=== PATIENT | female | born 1975 | race Caucasian/White ===

== ENCOUNTER 2017-02-06 05:16 | Emergency (ER) | payer OTHER ==
[2017-02-06 05:22] VITALS: RESP 18; TEMP 97
--- NOTE | 2017-02-06 05:43 | ED ---
Abdominal Pain HPI - General Chief Complaint: Abdominal Pain Stated Complaint: Female Source: patient, EMS, RN notes reviewed Mode of arrival: EMS Limitations: no limitations - History of Present Illness Initial Comments: This patient is a 41-year-old woman who presents to be evaluated for left lower quadrant pain. The patient states that the pain had started going on 3 days ago now. She indicates the left lower quadrant. She states the pain feels "like someone is pressing down and squeezing and there." She states the pain is constant and denies any worsening or relieving factors. There have been no associated symptoms. The patient states that she went to be seen at [facility], they performed a number of tests and transferred her here to see about having a gynecology consult for an ovarian cyst. The patient further relates that she had a partial hysterectomy in about the year 2011, by her previous final assembler who is in [facility]. MD Complaint: abdominal pain Onset/Timin -: days(s) Location: LLQ Radiation: none Migration to: no migration Severity: moderate Quality: other ("Like someone's pressing down in there") Consistency: constant Improves With: nothing Worsens With: nothing Associated Symptoms: denies other symptoms - Related Data Home Medications Medication Instructions Recorded Confirmed ALPRAZolam [Xanax] 1 mg PO BID 08/21/16 08/29/16 Dexamethasone 0.5 mg PO BID 08/21/16 08/29/16 azaTHIOprine [Imuran] 75 mg PO BID 08/21/16 08/29/16 Previous Rx's Medication Instructions Recorded Albuterol Inhaler [Ventolin Hfa 1 - 2 puff INHALATION Q6HR PRN #1 08/29/16 Inhaler] inhaler Levofloxacin [Levaquin] 750 mg PO DAILY #4 tab 08/29/16 Promethazine/Dextromethorphan 5 ml PO TID #60 ml 08/29/16 [Phenergan DM Syrup] predniSONE 50 mg PO DAILY #5 tab 08/29/16 Hydrocodone/Acetaminophen [[place] 1 each PO Q6HR PRN #20 tab 02/06/17 5-325] Allergies Allergy/AdvReac Type Severity Reaction Status Date / Time amoxicillin Allergy Rash/Hives Verified 02/06/17 05:23 hydromorphone [From Dilaudid] Allergy Unknown Verified 02/06/17 05:23 codeine AdvReac Vomiting Verified 02/06/17 05:23 lisinopril AdvReac Unknown Verified 02/06/17 05:23 metronidazole [From Flagyl] AdvReac Nausea & Verified 02/06/17 05:23 Vomiting paper tape Allergy Unknown Uncoded 02/06/17 05:23 Review of Systems ROS Statement: Those systems with pertinent positive or pertinent negative responses have been documented in the HPI. ROS Other: All systems not noted in ROS Statement are negative. Constitutional: Denies: fever, chills Respiratory: Denies: cough, dyspnea Cardiovascular: Denies: chest pain, palpitations, edema Gastrointestinal: Reports: as per HPI, abdominal pain. Denies: nausea, vomiting , diarrhea, constipation Genitourinary: Denies: dysuria, hematuria Musculoskeletal: Denies: back pain Skin: Denies: rash Neurological: Denies: headache Past Medical History Past Medical History: Diabetes Mellitus, GERD/Reflux, Hyperlipidemia, Hypertension Additional Past Medical History / Comment(s): autoimmune hepatitis, LUPUS, UTI History of Any Multi-Drug Resistant Organisms: None Reported Past Surgical History: Ablation, Cholecystectomy, Hysterectomy, Tubal Ligation Additional Past Surgical History / Comment(s): Cholecystectomy 2013, partial hysterectomy 2012, tubal ligation and NovaSure ablation in 2011 Past Anesthesia/Blood Transfusion Reactions: No Reported Reaction Past Psychological History: Anxiety, Depression Smoking Status: Current every day smoker Past Alcohol Use History: None Reported Past Drug Use History: None Reported - Past Family History Father Family Medical History: Hypertension (Father at age 52 from intracranial hemorrhage and he had a history of hypertension.) Mother Family Medical History: Diabetes Mellitus (Mom is 59-year-old has history of diabetes mellitus type 2) Brother(s) Family Medical History: No Reported History (Patient has one brother no major medical problems.) Sister(s) Family Medical History: Cancer (Patient had 2 sisters one from stomach cancer.) Son(s) Family Medical History: No Reported History (Patient has 3 sons no major medical problems) Daughter(s) Family Medical History: No Reported History (Patient has 2 daughters no major medical problems) General Exam Limitations: no limitations General appearance: alert, in no apparent distress, obese Head exam: Present: atraumatic, normocephalic Eye exam: Present: normal appearance. Absent: scleral icterus, conjunctival injection Respiratory exam: Present: normal lung sounds bilaterally. Absent: respiratory distress, wheezes, rales, rhonchi, stridor Cardiovascular Exam: Present: regular rate, normal rhythm, normal heart sounds. Absent: systolic murmur, diastolic murmur, rubs, gallop GI/Abdominal exam: Present: soft, tenderness (Left lower quadrant), normal bowel sounds. Absent: distended, guarding, rebound, mass, pulsatile mass, hernia Back exam: Present: normal inspection. Absent: CVA tenderness (R), CVA tenderness (L) Neurological exam: Present: alert Skin exam: Present: warm, dry, intact, normal color. Absent: rash Course Vital Signs 02/06/17 05:19 Temperature 97.0 F L Pulse Rate 75 Respiratory 18 Rate Blood Pressure 186/98 O2 Sat by Pulse 100 Oximetry Medical Decision Making - Medical Decision Making Review of the patient's transfer paperwork reveals that she has had transvaginal ultrasound revealing complex cyst of the left ovary measuring 3.6 x 4.4 x 4.5 cm with good Doppler flow. Computed tomography scan report reveals the 5.2 cm left adnexal cyst, no other findings Disposition Clinical Impression: Ovarian cyst Disposition: HOME SELF-CARE Condition: Fair Instructions: Ovarian Cyst (ED) Prescriptions: Hydrocodone/Acetaminophen [[place] 5-325] 1 each PO Q6HR PRN #20 tab PRN Reason: Pain Referrals: Rolando Hicks MD [Primary Care Provider] - 1-2 days Rosalee Davis DO [Doctor of Osteopathic Medicine] - 1-2 days
[2017-02-06] MEDS ORDERED: MORPHINE SULFATE 4 MG/ML SYRINGE IV STA (06:51)
[2017-02-06 07:11] VITALS: BP 162/54; PULSE 88
== END 2017-02-06 07:09 | disposition home or self-care (01) ==
LOC: EC 05:16
DX: N83.202 Unspecified ovarian cyst, left side (principal); N83.8 Other noninflammatory disorders of ovary, fallopian tube and broad ligament; E66.9 Obesity, unspecified; F41.9 Anxiety disorder, unspecified; F32.9 Major depressive disorder, single episode, unspecified; L93.2 Other local lupus erythematosus; K75.4 Autoimmune hepatitis; F17.200 Nicotine dependence, unspecified, uncomplicated; Z79.899 Other long term (current) drug therapy; Z88.0 Allergy status to penicillin; Z88.1 Allergy status to other antibiotic agents; Z88.5 Allergy status to narcotic agent; Z88.8 Allergy status to other drugs, medicaments and biological substances; Z91.09 Other allergy status, other than to drugs and biological substances; Z90.710 Acquired absence of both cervix and uterus; Z90.49 Acquired absence of other specified parts of digestive tract; Z80.0 Family history of malignant neoplasm of digestive organs; Z68.39 Body mass index [BMI] 39.0-39.9, adult
CPT/HCPCS: 99284; 96374; J2270

== ENCOUNTER 2017-02-07 20:46 | Emergency (ER) | payer OTHER ==
[2017-02-07] MEDS ORDERED: SODIUM CHLORIDE 0.9% 1,000 ML IV STA (21:30)
[2017-02-07] MEDS ORDERED: ONDANSETRON 4 MG/2 ML VIAL IVP STA (21:30)
[2017-02-07] MEDS ORDERED: MORPHINE SULFATE 4 MG/ML SYRINGE IVP STA (21:31)
[2017-02-07 22:39] LABS: Amorphous Sediment,Urine Few /hpf; Appearance,Urine Turbid (Clear); Bilirubin,Urine Negative (Negative); Glucose,Urine (UA) Negative (Negative); Ketones,Urine Negative (Negative); Leukocyte Esterase,Urine Trace (Negative); Mucus,Urine Rare /hpf; Nitrite,Urine Negative (Negative); PH, Urine 7.5 (5.0-8.0); Particle Count 10034; Protein,Urine Negative (Negative); RBC,Urine 1 /hpf (0-5); Specific Gravity,Urine 1.006 (1.001-1.035); Squamous Epithelial Cell,Urine 12 /hpf (0-4); UA Billing (MACRO vs. MICRO) MICRO; Urobilinogen,Urine <2.0 mg/dL (<2.0); WBC,Urine 6 /hpf (0-5)
[2017-02-07 22:40] LABS: ALT 25 U/L (9-52); AST 25 U/L (14-36); Alkaline Phosphatase 82 U/L (38-126); Anion Gap 8 mmol/L; Blood Urea Nitrogen 8 mg/dL (7-17); Calcium 9.2 mg/dL (8.4-10.2); Carbon Dioxide 27 mmol/L (22-30); Chloride 107 mmol/L (98-107); Glucose 80 mg/dL (74-99); Non-African American GFR(MDRD) >60 (>60 ml/min/1.73 sqM); Potassium 4.2 mmol/L (3.5-5.1); Sodium 142 mmol/L (137-145); Total Bilirubin 0.5 mg/dL (0.2-1.3); Total Protein 7.4 g/dL (6.3-8.2)
[2017-02-07 22:59] LABS: Basophils # (A) 0.1 k/uL (0-0.2); Basophils % (A) 1 %; CH 29.2; CHCM 34.7; Eosinophils # (A) 0.3 k/uL (0-0.7); Eosinophils % (A) 3 %; HCT 43.2 % (34.0-46.0); HDW 2.58; Luc # (Auto) 0.21; Luc % (Auto) 2; Lymphocytes # (A) 2.7 k/uL (1.0-4.8); Lymphocytes % (A) 27 %; MCH 29.3 pg (25.0-35.0); MCHC 34.7 g/dL (31.0-37.0); MCV 84.5 fL (80.0-100.0); Mean Platelet Volume 8.1; Monocytes # (A) 0.7 k/uL (0-1.0); Monocytes % (A) 7 %; Neutrophils # (A) 6.1 k/uL (1.3-7.7); Neutrophils % (A) 60 %; RDW 13.9 % (11.5-15.5); WBC 10.1 k/uL (3.8-10.6)
--- NOTE | 2017-02-07 23:29 | US ---
EXAM: US Pelvis, Transvaginal CLINICAL HISTORY: Reason: Pain TECHNIQUE: Real-time transvaginal pelvic ultrasound (complete) with image documentation. Transvaginal imaging was used for better evaluation of the endometrium and adnexa. COMPARISON: 02/06/2017 0340 FINDINGS: Uterus/cervix: The uterus is absent. Right ovary: The right ovary measures 2.3 x 1.9 x 2.3 cm. There is normal vascular flow in the right ovary. Left ovary: Left ovary measures 4.0 x 3.9 x 3.5 cm. Complex avascular 3.4 cm left ovarian cystic structure with low-level homogeneous internal echoes. There is normal vascular flow in the left ovary. Free fluid: No significant pelvic free fluid. Bladder: Not visualized. IMPRESSION: No sonographic findings to suggest ovarian torsion. A 3.4 cm complex avascular left adnexal cyst has sonographic features suggestive of an endometrioma. Recommend initial ultrasound follow-up in 6-12 weeks, if prior imaging is unavailable for comparison.
--- NOTE | 2017-02-07 23:45 | ED ---
Abdominal Pain HPI - General Chief Complaint: Abdominal Pain Stated Complaint: Revisit pelvic pain Time Seen by Provider: 02/07/17 21:07 Source: patient Mode of arrival: ambulatory Limitations: no limitations - History of Present Illness Initial Comments: The patient is a 41-year-old female who presents to the ED with a chief complaint of abdominal pain. Patient states that the pain is located in the lower abdomen. She also states that there is pain in the left lower quadrant. Patient states the pain is pressure-like in nature. She states that she's been having difficulty with urination. She was evaluated in the ED just yesterday for a similar complaint. The patient had an ultrasound as well as a CT abdomen and pelvis performed at an outside hospital. These images demonstrated evidence of a large left-sided ovarian cyst. However, there was excellent bloodflow noted on ultrasound. Patient's pain was controlled yesterday and she is discharged home to follow up with [employer]. The patient states that her pain is return should she arrived home. The patient denies any urinary incontinence or frequency. She states that she has been having a large amount of constipation. Patient denies any fevers or chills. - Related Data Home Medications Medication Instructions Recorded Confirmed ALPRAZolam [Xanax] 1 mg PO TID 08/21/16 02/07/17 Dexamethasone 0.5 mg PO BID 08/21/16 02/07/17 azaTHIOprine [Imuran] 75 mg PO BID 08/21/16 02/07/17 Hydrocodone/Acetaminophen [[place] 1 tab PO Q6HR PRN 02/07/17 02/07/17 5-325] Insulin Aspart [NovoLOG] See Protocol SQ AC-TID 02/07/17 02/07/17 Previous Rx's Medication Instructions Recorded Docusate [Colace] 100 mg PO BID #28 capsule 02/07/17 Magnesium Citrate 296 ml PO ONCE #1 ml 02/07/17 Polyethylene Glycol 3350 [Miralax] 17 gm PO DAILY #255 gm 02/07/17 Allergies Allergy/AdvReac Type Severity Reaction Status Date / Time amoxicillin Allergy Rash/Hives Verified 02/07/17 21:08 hydromorphone [From Dilaudid] Allergy Unknown Verified 02/07/17 21:08 codeine AdvReac Vomiting Verified 02/07/17 21:08 lisinopril AdvReac Unknown Verified 02/07/17 21:08 metronidazole [From Flagyl] AdvReac Nausea & Verified 02/07/17 21:08 Vomiting paper tape Allergy Unknown Uncoded 02/07/17 21:01 Review of Systems ROS Statement: Those systems with pertinent positive or pertinent negative responses have been documented in the HPI. ROS Other: All systems not noted in ROS Statement are negative. Constitutional: Denies: fever, chills, weakness Eyes: Denies: vision change ENT: Denies: ear pain, throat pain, dental pain Respiratory: Denies: cough, dyspnea, wheezes, hemoptysis, stridor Cardiovascular: Denies: chest pain Endocrine: Denies: fatigue Gastrointestinal: Reports: abdominal pain (lower abdomen and left adnexal region ), nausea. Denies: vomiting Genitourinary: Reports: other (difficulty with urination). Denies: urgency, dysuria, frequency Musculoskeletal: Denies: back pain Skin: Denies: rash, lesions Neurological: Denies: headache, weakness Psychiatric: Reports: anxiety, depression Past Medical History Past Medical History: Diabetes Mellitus, GERD/Reflux, Hyperlipidemia, Hypertension Additional Past Medical History / Comment(s): autoimmune hepatitis, LUPUS, UTI History of Any Multi-Drug Resistant Organisms: None Reported Past Surgical History: Ablation, Cholecystectomy, Hysterectomy, Tubal Ligation Additional Past Surgical History / Comment(s): Cholecystectomy 2013, partial hysterectomy 2012, tubal ligation and NovaSure ablation in 2011 Past Anesthesia/Blood Transfusion Reactions: No Reported Reaction Past Psychological History: Anxiety, Depression Smoking Status: Current every day smoker Past Alcohol Use History: None Reported Past Drug Use History: None Reported - Past Family History Father Family Medical History: Hypertension (Father at age 52 from intracranial hemorrhage and he had a history of hypertension.) Mother Family Medical History: Diabetes Mellitus (Mom is 59-year-old has history of diabetes mellitus type 2) Brother(s) Family Medical History: No Reported History (Patient has one brother no major medical problems.) Sister(s) Family Medical History: Cancer (Patient had 2 sisters one from stomach cancer.) Son(s) Family Medical History: No Reported History (Patient has 3 sons no major medical problems) Daughter(s) Family Medical History: No Reported History (Patient has 2 daughters no major medical problems) General Exam Limitations: no limitations General appearance: alert, in no apparent distress Head exam: Present: atraumatic, normocephalic Eye exam: Present: normal appearance, PERRL Pupils: Present: normal accommodation ENT exam: Present: normal exam, mucous membranes dry Neck exam: Present: normal inspection, tenderness Respiratory exam: Present: normal lung sounds bilaterally. Absent: respiratory distress, wheezes, rales, rhonchi, stridor, chest wall tenderness Cardiovascular Exam: Present: regular rate, normal rhythm. Absent: bradycardia , tachycardia, irregular rhythm GI/Abdominal exam: Present: soft, tenderness (mild tenderness throughout the lower abdomen). Absent: distended, guarding, rebound, rigid Extremities exam: Present: normal inspection, full ROM Back exam: Present: normal inspection, full ROM Neurological exam: Present: alert, oriented X3 Psychiatric exam: Present: normal affect, normal mood Skin exam: Present: warm, dry, intact Course Vital Signs 02/07/17 02/07/17 20:59 23:57 Temperature 98.6 F 97.9 F Pulse Rate 94 86 Respiratory 20 18 Rate Blood Pressure 185/111 154/97 O2 Sat by Pulse 99 100 Oximetry Medical Decision Making - Medical Decision Making The patient is a 41-year-old female who presents to the ED with a chief complaint of abdominal pain. Patient states the pain is located in the suprapubic region and left lower quadrant. Patient had evidence of an ovarian cyst yesterday on ultrasound as well as CAT scan. No evidence of any disruption of blood flow. Patient does have a history of partial hysterectomy. 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 States nausea but denies any vomiting. We'll recheck ultrasound of the pelvis to confirm adequate blood flow to bilateral ovaries. Check a bladder scan to examine postvoid residual. Patient denies any vaginal bleeding or discharge. Provide with narcotics for pain control. 11:15 PM Updated patient of overall findings including evidence of ovarian cyst on the left side. No free fluid in the pelvis. It seems that the patient's ovarian cyst is decreased in size since ultrasound yesterday. Patient has a questionable UA given number of squamous cells present. Will await culture. Hold on antibiotics at this point in time. The patient's bladder scan demonstrated 80 mL as PVR. Reviewing patient's CAT scan from yesterday, it appears that the patient is quite constipated. Counseled the patient that I believe that she would benefit from a bottle of Magnesium Citrate for home. I will discharge her home with Colace as well as MiraLAX to use on a daily basis. Answered all the patient's questions to her satisfaction. Her pain is well controlled here in the ED. She will be discharged home at this point in time. Encouraged her to return to the ED should she have worsening symptoms home. - Lab Data Result diagrams: 02/07/17 22:10 02/07/17 22:10 Lab Results 02/07/17 02/07/17 02/07/17 Range/Units 22:10 22:10 22:10 WBC 10.1 (3.8-10.6) k/uL RBC 5.10 (3.80-5.40) m/uL Hgb 15.0 (11.4-16.0) gm/dL Hct 43.2 (34.0-46.0) % MCV 84.5 (80.0-100.0) fL MCH 29.3 (25.0-35.0) pg MCHC 34.7 (31.0-37.0) g/dL RDW 13.9 (11.5-15.5) % Plt Count 284 (150-450) k/uL Neutrophils % 60 % Lymphocytes % 27 % Monocytes % 7 % Eosinophils % 3 % Basophils % 1 % Neutrophils # 6.1 (1.3-7.7) k/uL Lymphocytes # 2.7 (1.0-4.8) k/uL Monocytes # 0.7 (0-1.0) k/uL Eosinophils # 0.3 (0-0.7) k/uL Basophils # 0.1 (0-0.2) k/uL Sodium 142 (137-145) mmol/L Potassium 4.2 (3.5-5.1) mmol/L Chloride 107 (98-107) mmol/L Carbon Dioxide 27 (22-30) mmol/L Anion Gap 8 mmol/L BUN 8 (7-17) mg/dL Creatinine 0.54 (0.52-1.04) mg/dL Est GFR (MDRD) Af Amer >60 (>60 ml/min/1.73 sqM) Est GFR (MDRD) Non-Af >60 (>60 ml/min/1.73 sqM) Glucose 80 (74-99) mg/dL Plasma Lactic Acid [place] (0.7-2.0) mmol/L Calcium 9.2 (8.4-10.2) mg/dL Magnesium 2.0 (1.6-2.3) mg/dL Total Bilirubin 0.5 (0.2-1.3) mg/dL AST 25 (14-36) U/L ALT 25 (9-52) U/L Alkaline Phosphatase 82 (38-126) U/L Total Protein 7.4 (6.3-8.2) g/dL Albumin 4.2 (3.5-5.0) g/dL Urine Color Light Yellow Urine Appearance Turbid H (Clear) Urine pH 7.5 (5.0-8.0) Ur Specific [place] 1.006 (1.001-1.035) Urine Protein Negative (Negative) Urine Glucose (UA) Negative (Negative) Urine Ketones Negative (Negative) Urine Blood Negative (Negative) Urine Nitrite Negative (Negative) Urine Bilirubin Negative (Negative) Urine Urobilinogen <2.0 (<2.0) mg/dL Ur Leukocyte Esterase Trace H (Negative) Urine RBC 1 (0-5) /hpf Urine WBC 6 H (0-5) /hpf Ur Squamous Epith Cells 12 H (0-4) /hpf Amorphous Sediment Few H (None) /hpf Hyaline Casts 9 H (0-2) /lpf Urine Mucus Rare H (None) /hpf // Range/Units 22:10 WBC (3.8-10.6) k/uL RBC (3.80-5.40) m/uL Hgb (11.4-16.0) gm/dL Hct (34.0-46.0) % MCV (80.0-100.0) fL MCH (25.0-35.0) pg MCHC (31.0-37.0) g/dL RDW (11.5-15.5) % Plt Count (150-450) k/uL Neutrophils % % Lymphocytes % % Monocytes % % Eosinophils % % Basophils % % Neutrophils # (1.3-7.7) k/uL Lymphocytes # (1.0-4.8) k/uL Monocytes # (0-1.0) k/uL Eosinophils # (0-0.7) k/uL Basophils # (0-0.2) k/uL Sodium (137-145) mmol/L Potassium (3.5-5.1) mmol/L Chloride (98-107) mmol/L Carbon Dioxide (22-30) mmol/L Anion Gap mmol/L BUN (7-17) mg/dL Creatinine (0.52-1.04) mg/dL Est GFR (MDRD) Af Amer (>60 ml/min/1.73 sqM) Est GFR (MDRD) Non-Af (>60 ml/min/1.73 sqM) Glucose (74-99) mg/dL Plasma Lactic Acid [place] 1.0 (0.7-2.0) mmol/L Calcium (8.4-10.2) mg/dL Magnesium (1.6-2.3) mg/dL Total Bilirubin (0.2-1.3) mg/dL AST (14-36) U/L ALT (9-52) U/L Alkaline Phosphatase (38-126) U/L Total Protein (6.3-8.2) g/dL Albumin (3.5-5.0) g/dL Urine Color Urine Appearance (Clear) Urine pH (5.0-8.0) Ur Specific [place] (1.001-1.035) Urine Protein (Negative) Urine Glucose (UA) (Negative) Urine Ketones (Negative) Urine Blood (Negative) Urine Nitrite (Negative) Urine Bilirubin (Negative) Urine Urobilinogen (<2.0) mg/dL Ur Leukocyte Esterase (Negative) Urine RBC (0-5) /hpf Urine WBC (0-5) /hpf Ur Squamous Epith Cells (0-4) /hpf Amorphous Sediment (None) /hpf Hyaline Casts (0-2) /lpf Urine Mucus (None) /hpf Disposition Clinical Impression: Suprapubic pain, Constipation, Ovarian cyst, left Disposition: HOME SELF-CARE Condition: Good Instructions: Ovarian Cyst (ED), Constipation (ED), High Fiber Diet (ED) Additional Instructions: Please take the medications prescribed to you for constipation. The bottle of magnesium citrate will help to clear your bowels. I have prescribed a stool softener and MiraLAX. You can continue to take pain medications at home as needed for discomfort. Please follow-up with your Network Lead for your appointment next Tuesday. Please return to the ED should he have worsening symptoms though home, particularly if associated with fever. Prescriptions: Docusate [Colace] 100 mg PO BID #28 capsule Magnesium Citrate 296 ml PO ONCE #1 ml Polyethylene Glycol 3350 [Miralax] 17 gm PO DAILY #255 gm Referrals: Rolando Hicks MD [Primary Care Provider] - 1-2 days Time of Disposition: 23:45
[2017-02-07 23:58] VITALS: BP 154/97; PULSE 86; RESP 18; TEMP 97.9
== END 2017-02-07 23:58 | disposition home or self-care (01) ==
LOC: EC 20:46
DX: K59.00 Constipation, unspecified (principal); N83.202 Unspecified ovarian cyst, left side; R11.0 Nausea; E11.9 Type 2 diabetes mellitus without complications; F32.9 Major depressive disorder, single episode, unspecified; F41.9 Anxiety disorder, unspecified; F17.200 Nicotine dependence, unspecified, uncomplicated; Z79.4 Long term (current) use of insulin; Z79.899 Other long term (current) drug therapy; Z88.0 Allergy status to penicillin; Z88.8 Allergy status to other drugs, medicaments and biological substances; Z91.048 Other nonmedicinal substance allergy status; Z90.49 Acquired absence of other specified parts of digestive tract; Z90.710 Acquired absence of both cervix and uterus; Z98.51 Tubal ligation status
CPT/HCPCS: 51798; 36415; 80053; 83605; 83735; 85025; 81001; 87086; 93975; 76830; 99284; 96374; 96375; 96361; J2270; J2405; 87077; 87186

== ENCOUNTER 2019-01-11 15:52 | Observation (INO) | payer OTHER ==
[2019-01-11] MEDS ORDERED: SODIUM CHLORIDE 0.9% 1,000 ML IV ONE (16:26)
--- NOTE | 2019-01-11 16:32 | ED ---
General Adult HPI - General Chief complaint: Altered Mental Status Stated complaint: Seizure Time Seen by Provider: 01/11/19 16:16 Source: patient, family, RN notes reviewed Mode of arrival: wheelchair Limitations: altered mental status - History of Present Illness Initial comments: Patient is a pleasant 43-year-old female presenting to the emergency department with altered mental status. History provided by the . 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 Patient had 3-4 yesterday lasting between 5 and 10 minutes. Seizure activity was around 9 or 9:30 PM. Patient has had increased stress recently. Stress associated with patient seizures chronically. Patient normally does have confusion and difficulty talking 4 hours afterwards however usually this resolves in the next day. This time symptoms are not improving. Patient is having difficulty talking however is confused as well. - Related Data Home Medications Medication Instructions Recorded Confirmed Aspirin EC [Ecotrin Low Dose] 81 mg PO DAILY 01/11/19 01/11/19 Atenolol [Tenormin] 25 mg PO BID 01/11/19 01/11/19 Famotidine [Pepcid] 40 mg PO BID 01/11/19 01/11/19 LORazepam [Ativan] 0.5 mg PO BID 01/11/19 01/11/19 OXcarbazepine [Oxtellar Xr] 1,200 mg PO DAILY 01/11/19 01/11/19 Pantoprazole Sodium [Protonix] 20 mg PO DAILY 01/11/19 01/11/19 clonazePAM [KlonoPIN] 1.5 mg PO BID 01/11/19 01/11/19 Allergies Allergy/AdvReac Type Severity Reaction Status Date / Time amoxicillin Allergy Rash/Hives Verified 01/11/19 16:56 hydromorphone [From Dilaudid] Allergy Unknown Verified 01/11/19 16:56 codeine AdvReac Vomiting Verified 01/11/19 16:56 lisinopril AdvReac Unknown Verified 01/11/19 16:56 metronidazole [From Flagyl] AdvReac Nausea & Verified 01/11/19 16:56 Vomiting paper tape Allergy Unknown Uncoded 01/11/19 16:00 Review of Systems ROS Statement: Those systems with pertinent positive or pertinent negative responses have been documented in the HPI. ROS Other: All systems not noted in ROS Statement are negative. Limitations: ROS unobtainable due to patients medical condition Past Medical History Past Medical History: Diabetes Mellitus, GERD/Reflux, Hyperlipidemia, Hypertension Additional Past Medical History / Comment(s): autoimmune hepatitis, LUPUS, UTI History of Any Multi-Drug Resistant Organisms: None Reported Past Surgical History: Ablation, Cholecystectomy, Hysterectomy, Tubal Ligation Additional Past Surgical History / Comment(s): Cholecystectomy 2013, partial hysterectomy 2012, tubal ligation and NovaSure ablation in 2011 Past Anesthesia/Blood Transfusion Reactions: No Reported Reaction Past Psychological History: Anxiety, Depression Smoking Status: Current every day smoker Past Alcohol Use History: None Reported Past Drug Use History: None Reported - Past Family History Father Family Medical History: Hypertension (Father at age 52 from intracranial hemorrhage and he had a history of hypertension.) Mother Family Medical History: Diabetes Mellitus (Mom is 59-year-old has history of diabetes mellitus type 2) Brother(s) Family Medical History: No Reported History (Patient has one brother no major medical problems.) Sister(s) Family Medical History: Cancer (Patient had 2 sisters one from stomach cancer.) Son(s) Family Medical History: No Reported History (Patient has 3 sons no major medical problems) Daughter(s) Family Medical History: No Reported History (Patient has 2 daughters no major medical problems) General Exam Limitations: altered mental status General appearance: alert, in no apparent distress, other (Patient is alert. Limited verbal capability. Patient does follow commands but provides limited effort) Head exam: Present: atraumatic, normocephalic Eye exam: Present: normal appearance, PERRL, EOMI. Absent: nystagmus ENT exam: Present: normal oropharynx Neck exam: Present: normal inspection Respiratory exam: Present: normal lung sounds bilaterally Cardiovascular Exam: Present: regular rate, normal rhythm GI/Abdominal exam: Present: soft. Absent: tenderness Extremities exam: Present: normal inspection. Absent: pedal edema, calf tenderness Back exam: Present: normal inspection Neurological exam: Present: alert, altered, CN II-XII intact. Absent: motor sensory deficit Expanded Neurological exam: Present: protecting the airway Cranial nerves: EOM's Intact: Normal, Facial Sensation: Normal Sensory exam: Upper Extremity Light Touch: Normal, Lower Extremity Light Touch: Normal Motor strength exam: RUE: 5, LUE: 5, RLE: 5, LLE: 5 Eye Response: (4) open spontaneously Motor Response: (6) obeys commands Psychiatric exam: Present: normal affect, normal mood Skin exam: Present: normal color Course Vital Signs 01/11/19 01/11/19 15:58 17:42 Temperature 98.2 F Pulse Rate 94 76 Respiratory 20 16 Rate Blood Pressure 156/94 153/98 O2 Sat by Pulse 96 97 Oximetry EKG Findings - EKG Comments: EKG Findings:: Normal sinus rhythm at 73. VA 156. QRS 74. QT 402. QTC 442. Normal axis. Normal QRS. No acute ST change. Medical Decision Making - Medical Decision Making Patient reevaluated and unchanged. Case was discussed in detail with Dr. Ashley, who will admit his patient. - Lab Data Result diagrams: 01/11/19 17:00 01/11/19 17:00 Lab Results 01/11/19 01/11/19 01/11/19 Range/Units 17:00 17:00 17:00 WBC 9.3 (3.8-10.6) k/uL RBC 4.70 (3.80-5.40) m/uL Hgb 13.6 (11.4-16.0) gm/dL Hct 40.0 (34.0-46.0) % MCV 85.1 (80.0-100.0) fL MCH 28.9 (25.0-35.0) pg MCHC 34.0 (31.0-37.0) g/dL RDW 14.2 (11.5-15.5) % Plt Count 324 (150-450) k/uL Neutrophils % 66 % Lymphocytes % 18 % Monocytes % 6 % Eosinophils % 5 % Basophils % 1 % Neutrophils # 6.2 (1.3-7.7) k/uL Lymphocytes # 1.7 (1.0-4.8) k/uL Monocytes # 0.6 (0-1.0) k/uL Eosinophils # 0.5 (0-0.7) k/uL Basophils # 0.1 (0-0.2) k/uL PT (9.0-12.0) sec INR (<1.2) APTT (22.0-30.0) sec Sodium 134 L (137-145) mmol/L Potassium 4.3 (3.5-5.1) mmol/L Chloride 103 (98-107) mmol/L Carbon Dioxide 25 (22-30) mmol/L Anion Gap 6 mmol/L BUN 7 (7-17) mg/dL Creatinine 0.43 L (0.52-1.04) mg/dL Est GFR (CKD-EPI)AfAm >90 (>60 ml/min/1.73 sqM) Est GFR (CKD-EPI)NonAf >90 (>60 ml/min/1.73 sqM) Glucose 116 H (74-99) mg/dL Calcium 9.1 (8.4-10.2) mg/dL Total Bilirubin 0.3 (0.2-1.3) mg/dL AST 17 (14-36) U/L ALT 17 (9-52) U/L Alkaline Phosphatase 71 (38-126) U/L Ammonia 16 (<30) umol/L Creatine Kinase 62 (30-135) U/L Troponin I (0.000-0.034) ng/mL Total Protein 6.8 (6.3-8.2) g/dL Albumin 4.0 (3.5-5.0) g/dL 01/11/19 01/11/19 Range/Units 17:00 17:00 WBC (3.8-10.6) k/uL RBC (3.80-5.40) m/uL Hgb (11.4-16.0) gm/dL Hct (34.0-46.0) % MCV (80.0-100.0) fL MCH (25.0-35.0) pg MCHC (31.0-37.0) g/dL RDW (11.5-15.5) % Plt Count (150-450) k/uL Neutrophils % % Lymphocytes % % Monocytes % % Eosinophils % % Basophils % % Neutrophils # (1.3-7.7) k/uL Lymphocytes # (1.0-4.8) k/uL Monocytes # (0-1.0) k/uL Eosinophils # (0-0.7) k/uL Basophils # (0-0.2) k/uL PT 9.9 (9.0-12.0) sec INR 0.9 (<1.2) APTT 24.2 (22.0-30.0) sec Sodium (137-145) mmol/L Potassium (3.5-5.1) mmol/L Chloride (98-107) mmol/L Carbon Dioxide (22-30) mmol/L Anion Gap mmol/L BUN (7-17) mg/dL Creatinine (0.52-1.04) mg/dL Est GFR (CKD-EPI)AfAm (>60 ml/min/1.73 sqM) Est GFR (CKD-EPI)NonAf (>60 ml/min/1.73 sqM) Glucose (74-99) mg/dL Calcium (8.4-10.2) mg/dL Total Bilirubin (0.2-1.3) mg/dL AST (14-36) U/L ALT (9-52) U/L Alkaline Phosphatase (38-126) U/L Ammonia (<30) umol/L Creatine Kinase (30-135) U/L Troponin I <0.012 (0.000-0.034) ng/mL Total Protein (6.3-8.2) g/dL Albumin (3.5-5.0) g/dL - Radiology Data Radiology results: report reviewed (cT scan the brain reveals no acute process), image reviewed (Chest x-ray shows no acute process) Disposition Clinical Impression: Altered mental status Disposition: ADMITTED IP TO THIS HOSP Is patient prescribed a controlled substance at d/c from ED?: No Referrals: Sandip Ashley MD [Primary Care Provider] - 1-2 days Decision Time: 18:37
[2019-01-11 17:10] LABS: Basophils # (A) 0.1 k/uL (0-0.2); Basophils % (A) 1 %; Eosinophils # (A) 0.5 k/uL (0-0.7); Eosinophils % (A) 5 %; HGB 13.6 gm/dL (11.4-16.0); Lymphocytes # (A) 1.7 k/uL (1.0-4.8); Lymphocytes % (A) 18 %; MCH 28.9 pg (25.0-35.0); MCV 85.1 fL (80.0-100.0); Mean Platelet Volume 7.1; Monocytes # (A) 0.6 k/uL (0-1.0); Monocytes % (A) 6 %; Neutrophils # (A) 6.2 k/uL (1.3-7.7); Neutrophils % (A) 66 %; Platelet Count 324 k/uL (150-450); RDW 14.2 % (11.5-15.5); WBC 9.3 k/uL (3.8-10.6)
[2019-01-11 17:21] LABS: INR 0.9 (<1.2); Partial Thromboplastin Time 24.2 sec (22.0-30.0); Prothrombin Time 9.9 sec (9.0-12.0)
[2019-01-11 17:27] LABS: ALT 17 U/L (9-52); AST 17 U/L (14-36); Alkaline Phosphatase 71 U/L (38-126); Anion Gap 6 mmol/L; Blood Urea Nitrogen 7 mg/dL (7-17); Calcium 9.1 mg/dL (8.4-10.2); Carbon Dioxide 25 mmol/L (22-30); Chloride 103 mmol/L (98-107); Creatine Kinase 62 U/L (30-135); Glucose 116 mg/dL (74-99); Potassium 4.3 mmol/L (3.5-5.1); Sodium 134 mmol/L (137-145); Total Bilirubin 0.3 mg/dL (0.2-1.3); Total Protein 6.8 g/dL (6.3-8.2)
--- NOTE | 2019-01-11 17:47 | CT ---
EXAMINATION TYPE: CT brain wo con DATE OF EXAM: 01/11/2019 COMPARISON: None HISTORY: SEIZURES CT DLP: 1095.4 mGycm. Automated Exposure Control for Dose Reduction was Utilized. TECHNIQUE: CT scan of the head is performed without contrast. FINDINGS: Ventricles and sulci appear normal. There is no mass effect nor midline shift. There is no sign of intracranial hemorrhage. Calvarium is intact. IMPRESSION: Normal head CT scan.
--- NOTE | 2019-01-11 17:50 | XR ---
EXAMINATION TYPE: XR chest 2V DATE OF EXAM: 01/11/2019 COMPARISON: 08/29/2016 HISTORY: Altered mental status TECHNIQUE: Frontal and lateral views of the chest are obtained. FINDINGS: There is no heart failure nor confluent pneumonic infiltrate. There are chest leads. Costo phrenic angles are clear. Heart appears increased in size compared to old exam. Bony thorax is intact . IMPRESSION: No active cardiopulmonary disease. Cardiac silhouette appears increased compared to old e xam probably due to the AP projection in this large patient. I do not see definite cardiomegaly.
[2019-01-11] MEDS ORDERED: LORazepam 2 MG/ML INJ IV STA (18:33)
[2019-01-11] MEDS ORDERED: NALOXONE 0.4 MG/ML 1 ML VIAL IV PRN (18:37)
[2019-01-11] MEDS ORDERED: ACETAMINOPHEN TAB 325 MG TAB PO PRN (18:37)
[2019-01-11] MEDS ORDERED: ONDANSETRON 4 MG/2 ML VIAL IVP PRN (18:37)
[2019-01-11] MEDS ORDERED: SODIUM CHLORIDE 0.9% 1,000 ML IV SCH (18:45)
[2019-01-11 18:47] LABS: Amorphous Sediment,Urine Occasional /hpf; Appearance,Urine Cloudy (Clear); Bilirubin,Urine Negative (Negative); Blood,Urine Negative (Negative); Color,Urine Yellow; Glucose,Urine (UA) Negative (Negative); Ketones,Urine Negative (Negative); Leukocyte Esterase,Urine Negative (Negative); Mucus,Urine Rare /hpf; Nitrite,Urine Negative (Negative); Protein,Urine Negative (Negative); RBC,Urine 2 /hpf (0-5); Specific Gravity,Urine 1.023 (1.001-1.035); Squamous Epithelial Cell,Urine 5 /hpf (0-4); Urobilinogen,Urine <2.0 mg/dL (<2.0); WBC,Urine 4 /hpf (0-5)
[2019-01-11 18:54] LABS: Amphetamine Screen,Urine Not Detected (NotDetected); Barbiturate Screen,Urine Not Detected (NotDetected); Benzodiazepines Screen,Urine Detected (NotDetected); Cocaine Screen,Urine Not Detected (NotDetected); Methadone Screen, Urine Not Detected (NotDetected); Opiate Screen,Urine Not Detected (NotDetected); Oxycodone Screen, Urine Not Detected (NotDetected); Phencyclidine Screen,Urine Not Detected (NotDetected); Tricyclic Antidepressant,Urine Not Detected (NotDetected); Urn Cannabinoid Scrn Not Detected (NotDetected)
[2019-01-11] MEDS ORDERED: LORazepam 0.5 MG TAB PO PRN (20:20)
[2019-01-11] MEDS: ATENOLOL 25 MG TAB PO SCH (20:47)
[2019-01-11] MEDS: FAMOTIDINE 20 MG TAB PO SCH (20:47)
[2019-01-11] MEDS: clonazePAM 0.5 MG TAB PO SCH (20:47)
[2019-01-12] MEDS: clonazePAM 0.5 MG TAB PO SCH (08:42)
[2019-01-12] MEDS: FAMOTIDINE 20 MG TAB PO SCH (08:43)
[2019-01-12] MEDS: ATENOLOL 25 MG TAB PO SCH (08:44)
[2019-01-12] MEDS ORDERED: PANTOPRAZOLE 40 MG TABLET PO SCH (09:00)
[2019-01-12] MEDS ORDERED: OXTELLAR 600 MG PO SCH (09:00)
[2019-01-12] MEDS ORDERED: ASPIRIN 81 MG PO SCH (09:00)
--- NOTE | 2019-01-12 12:40 | P.CN ---
Psychiatric Consult - . Consult date: 01/12/19 Consult:: 01/12/19 09:32 Altered mental status Assessment and Plan Assessment: Patient is a pleasant 43-year-old female presenting to the emergency department with altered mental status. History provided by the . 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 Patient had 3-4 yesterday lasting between 5 and 10 minutes. Seizure activity was around 9 or 9:30 PM. Patient has had increased stress recently. Stress associated with patient seizures chronically. Patient normally does have confusion and difficulty talking 4 hours afterwards however usually this resolves in the next day. This time symptoms are not improving. Patient is having difficulty talking however is confused as well. - Related Data Home Medications Medication Instructions Recorded Confirmed Aspirin EC [Ecotrin Low Dose] 81 mg PO DAILY 01/11/19 01/11/19 Atenolol [Tenormin] 25 mg PO BID 01/11/19 01/11/19 Famotidine [Pepcid] 40 mg PO BID 01/11/19 01/11/19 LORazepam [Ativan] 0.5 mg PO BID 01/11/19 01/11/19 OXcarbazepine [Oxtellar Xr] 1,200 mg PO DAILY 01/11/19 01/11/19 Pantoprazole Sodium [Protonix] 20 mg PO DAILY 01/11/19 01/11/19 clonazePAM [KlonoPIN] 1.5 mg PO BID 01/11/19 01/11/19 Allergies Allergy/AdvReac Type Severity Reaction Status Date / Time amoxicillin Allergy Rash/Hives Verified 01/11/19 16:56 hydromorphone [From Dilaudid] Allergy Unknown Verified 01/11/19 16:56 codeine AdvReac Vomiting Verified 01/11/19 16:56 lisinopril AdvReac Unknown Verified 01/11/19 16:56 metronidazole [From Flagyl] AdvReac Nausea & Verified 01/11/19 16:56 Vomiting paper tape Allergy Unknown Uncoded 01/11/19 16:00 Past Medical History Past Medical History: Diabetes Mellitus, GERD/Reflux, Hyperlipidemia, Hypertension Additional Past Medical History / Comment(s): autoimmune hepatitis, LUPUS, UTI History of Any Multi-Drug Resistant Organisms: None Reported Past Surgical History: Ablation, Cholecystectomy, Hysterectomy, Tubal Ligation Additional Past Surgical History / Comment(s): Cholecystectomy 2013, partial hysterectomy 2012, tubal ligation and NovaSure ablation in 2011 Past Anesthesia/Blood Transfusion Reactions: No Reported Reaction Past Psychological History: Anxiety, Depression, she has been hospitalized numerous times for depression in the [place] area. Smoking Status: Current every day smoker Past Alcohol Use History: None Reported Past Drug Use History: None Reported - Past Family History Father Family Medical History: Hypertension (Father at age 52 from intracranial hemorrhage and he had a history of hypertension.) Mother Family Medical History: Diabetes Mellitus (Mom is 59-year-old has history of diabetes mellitus type 2) Brother(s) Family Medical History: No Reported History (Patient has one brother no major medical problems.) Sister(s) Family Medical History: Cancer (Patient had 2 sisters one from stomach cancer.) Son(s) Family Medical History: No Reported History (Patient has 3 sons no major medical problems) Daughter(s) Family Medical History: No Reported History (Patient has 2 daughters no major medical problems) Mental Status Examination - This patient is unable to participate in a thorough mental status examination and most information pain was from her boyfriend and sitting at bedside. It had a relationship last 4 years. July 2018 she had seizure disorder and was diagnosed at [facility] with a diagnosis of dissociative seizure disorder with aphasia. She denies suicidal or homicidal ideation. She denies hearing voices or seeing objects. She states she is anxious because she cannot talk but broke out crying without making a noise. Boyfriend stated that this happened a couple months ago was taken to [facility] with a true 4 blood tubes and then was sent home. She has not been able to talk over the last 2 days and boyfriend decided to bring her here after talking to her neurologist said she needs to be seen in the hospital. Observation of her MRI does not reveal any overt pathology. Cortical temporal parietal regions appear to be within normal. It does not seem to be any abnormal tissue and do not see any lacunar infarcts or any abnormalities as mentioned in either temporal parietal regions as well as motor cortical regions. Psychiatric impression: Dissociative seizure with aphasia.; PTSD, major depressive disorder currently in remission, anxiety disorder The latest edition of the International Classification of Diseases (ICD-10)1 defines dissociation as . . . a partial or complete loss of the normal integration between memories of the past, awareness of identity and immediate sensations, and control of body movements (p 151). Thus defined, the concept of dissociation captures a heterogeneous group of psychiatric conditions previously subsumed within the broader construct of hysteria. Thedissociative (conversion) disorders category in ICD-10 comprises subcategories of dissociative amnesia, dissociative fugue, trance and possession disorders, dissociative anaesthesia and sensory loss, dissociative motor disorders and dissociative convulsions, and waste basket categories included to capture uncommon, impure, or less severe instances of dissociation. Psychiatric recommendation: Referral to outpatient psychotherapy, this does not respond well on inpatient basis especially on 3 W. in the health unit Kayleigh Acuña. I also recommend that she be followed by [facility] neurology for video EEG and they can coordinate treatment with [facility] Department of psychiatry. Thank you for the consult Rex Grullon D.O. PhD (1) Conversion aphonia Current Visit: Yes Status: Acute Priority: High Code(s): R49.1 - APHONIA SNOMED Code(s): 35684553 Time with Patient: Less than 30
--- NOTE | 2019-01-12 15:56 | P.HPIM ---
History of Present Illness H&P Date: 01/12/19 Chief Complaint: Seizures This is a 43-year-old female who follows with Dr. Johnson diagnosed with dissociative seizures-maintained on Oxtellar XR and multiple other medical i ssues, admitted to the ER with altered mental status. Seizure disorder recently diagnosed in July 2018. Patient has been under significant stress. The evening before coming into ER patient had sustained 3-4 seizure episodes lasting, 5-10 minutes. Significant other states that she develops a blank stare with mild twitching of her extremities, with no incontinence of urine or bowel movement. Post seizure patient normally develops confusion, difficulty talking , usually resolves the next day. Patient was brought in as these symptoms have not improved. EKG reporting normal sinus rhythm. Brain CT reported no acute process. Chest x-ray reported no acute process.Oxtellar Level collected, pending. No difficulty swallowing, Good diet intake with no nausea vomiting or diarrhea. Denies lightheadedness dizziness or focal deficits. Denies chest pain, palpitations or shortness of breath. She becomes anxious related to her inability to talk and cries. Review of Systems ROS Statement: Those systems with pertinent positive or pertinent negative responses have been documented in the HPI. ROS Other: All systems not noted in ROS Statement are negative. Limitations: ROS unobtainable due to patients medical condition Past Medical History Past Medical History: Diabetes Mellitus, GERD/Reflux, Hyperlipidemia, Hypertension, Seizure Disorder Additional Past Medical History / Comment(s): autoimmune hepatitis, LUPUS, UTI, pseudo-seizures History of Any Multi-Drug Resistant Organisms: None Reported Past Surgical History: Ablation, Cholecystectomy, Hysterectomy, Tubal Ligation Additional Past Surgical History / Comment(s): Cholecystectomy 2013, partial hysterectomy 2012, tubal ligation and NovaSure ablation in 2011 Past Anesthesia/Blood Transfusion Reactions: No Reported Reaction Past Psychological History: Anxiety, Depression Smoking Status: Current every day smoker Past Alcohol Use History: None Reported Past Drug Use History: None Reported - Past Family History Father Family Medical History: Hypertension Mother Family Medical History: Diabetes Mellitus Brother(s) Family Medical History: No Reported History Sister(s) Family Medical History: Cancer Son(s) Family Medical History: No Reported History Daughter(s) Family Medical History: No Reported History Medications and Allergies Home Medications Medication Instructions Recorded Confirmed Type Aspirin EC [Ecotrin Low Dose] 81 mg PO DAILY 01/11/19 01/11/19 History Atenolol [Tenormin] 25 mg PO BID 01/11/19 01/11/19 History Famotidine [Pepcid] 40 mg PO BID 01/11/19 01/11/19 History LORazepam [Ativan] 0.5 mg PO BID 01/11/19 01/11/19 History OXcarbazepine [Oxtellar Xr] 1,200 mg PO DAILY 01/11/19 01/11/19 History Pantoprazole Sodium [Protonix] 20 mg PO DAILY 01/11/19 01/11/19 History clonazePAM [KlonoPIN] 1.5 mg PO BID 01/11/19 01/11/19 History Allergies Allergy/AdvReac Type Severity Reaction Status Date / Time amoxicillin Allergy Rash/Hives Verified 01/11/19 16:56 hydromorphone [From Dilaudid] Allergy Unknown Verified 01/11/19 16:56 codeine AdvReac Vomiting Verified 01/11/19 16:56 lisinopril AdvReac Unknown Verified 01/11/19 16:56 metronidazole [From Flagyl] AdvReac Nausea & Verified 01/11/19 16:56 Vomiting paper tape Allergy Unknown Uncoded 01/11/19 16:00 Physical Exam Vitals: Vital Signs Temp Pulse Pulse Resp BP BP Pulse Ox 01/12/19 08:00 61 17 146/78 94 L 01/12/19 04:00 98.6 F 78 18 112/75 93 L 01/11/19 23:45 98.2 F 69 16 105/70 96 01/11/19 19:29 98.3 F 72 16 139/69 94 L 01/11/19 18:42 149/87 01/11/19 17:42 76 16 153/98 97 01/11/19 15:58 98.2 F 94 20 156/94 96 Intake and Output 01/11/19 01/12/19 01/12/19 22:59 06:59 14:59 Other: Voiding Method Toilet Toilet # Voids 1 Weight 111.584 kg 124.2 kg PHYSICAL EXAM: VITAL SIGNS: As above GENERAL: Sitting up in bed, no acute distress, looking to significant other to talk for her, follows commands HEENT: Conjunctivae normal. eyes normal. Oral mucosa moist NECK: No JVD. No thyroid enlargement. No LNs CARDIOVASCULAR: S1, S2 muffled. No murmur RESPIRATION: Breath sounds diminished in the bases. No rhonchi or crackles. No bronchial breathing. ABDOMEN: Soft, nontender . No guarding. no masses palpable. No ascites, No hepatosplenomegaly.Bowel sounds heard. LEGS: No edema. no swelling PSYCHIATRY: Alert and oriented -3, mood and affect normal. NERVOUS SYSTEM: Cranial N 2-12 grossly normal. Moves all 4 limbs. Diffuse weakness No focal deficits. No sensory deficit. No signs of cerebellar dysfucntion. Skin: no ulcer no rash Joints: No active swelling. No inflammation. Lymphatic system. No LN neck axilla or groin. Results CBC & Chem 7: 01/11/19 17:00 01/11/19 17:00 Labs: Abnormal Lab Results - Last 24 Hours (Table) 01/11/19 01/11/19 Range/Units 17:00 18:30 Sodium 134 L (137-145) mmol/L Creatinine 0.43 L (0.52-1.04) mg/dL Glucose 116 H (74-99) mg/dL Urine Appearance Cloudy H (Clear) Ur Squamous Epith Cells 5 H (0-4) /hpf Amorphous Sediment Occasional H (None) /hpf Urine Mucus Rare H (None) /hpf U Benzodiazepines Scrn Detected H (NotDetected) Thrombosis Risk Factor Assmnt - Choose All That Apply Any of the Below Risk Factors Present?: Yes Each Factor Represents 1 point: Age 41-60 years, Obesity (BMI >25) Other Risk Factors: No Other congenital or acquired thrombophilia - If yes, enter type in comment: No Thrombosis Risk Factor Assessment Total Risk Factor Score: 2 Thrombosis Risk Factor Assessment Level: Low Risk Assessment and Plan Assessment: -Disassociative seizure with aphasia -Anxiety -Diabetes mellitus -Gastroesophageal reflux disease -Hypertension -Morbid obesity, BMI 48.5 -Ongoing nicotine dependence Plan: Continue on current medication regime ,monitoring and symptomatic gonzalez tment. Psychiatry and neurology consulted. Home meds have been reviewed and resumed. Smoking cessation addressed. Further recommendations to follow. The impression and plan of care has been dictated as directed. : I performed a history and examination of this patient, discussed the same with the dictator. I agree with the dictator's note ,documented as a scribe. Any additional findings or plans will be noted.
[2019-01-12] MEDS ORDERED: HEPARIN SODIUM,PORCINE 5,000 UNIT/ML 1 ML VIAL SQ SCH (16:00)
--- NOTE | 2019-01-12 16:00 | P.CNNES ---
History of Present Illness Consult date: 01/12/19 Reason for Consult: Altered mental status History of Present Illness: Patient is a 43-year-old female, who has history of "dissociative seizures", after which patient becomes aphasic. Patient follows up with neurologist . Patient also sees a psychiatrist. Patient came to the hospital after she had 4 seizures, after which she became aphasic, therefore came to the hospital. At present patient is mute, not talking, but has full comprehension, follows commands, communicates by either pointing to objects on the printed paper, or my handwriting. Patient with her sign language describes her seizures as crying episodes, confusion and headache lasts for 5-6 minutes. Afterward she becomes mute, not able to talk. Patient uses hands and writing to communicate. Patient states she does have a lot of depression, anxiety. Patient has a normal affect at this time. Patient has been seen by psychiatrist, who has evaluated and cleared the patient. Patient had a CT of the head which is normal, chest x-ray normal EKG normal. Blood test shows normal CBC, PT/PTT, sodium 134 potassium 4.3 renal functions are normal liver functions normal. Patient is currently taking Oxtellar XR 1200 mg daily. Patient also tells me that she has an appointment with her neurologist on January 17. Review of Systems Patient appears electively mute, but has normal comprehension and follows commands, good affect. Denies chest pain, shortness of breath, wheezing. Constitutional: Reports as per HPI Past Medical History Past Medical History: Diabetes Mellitus, GERD/Reflux, Hyperlipidemia, Hypertension, Seizure Disorder Additional Past Medical History / Comment(s): autoimmune hepatitis, LUPUS, UTI, pseudo-seizures History of Any Multi-Drug Resistant Organisms: None Reported Past Surgical History: Ablation, Cholecystectomy, Hysterectomy, Tubal Ligation Additional Past Surgical History / Comment(s): Cholecystectomy 2013, partial hysterectomy 2012, tubal ligation and NovaSure ablation in 2011 Past Anesthesia/Blood Transfusion Reactions: No Reported Reaction Past Psychological History: Anxiety, Depression Smoking Status: Current every day smoker Past Alcohol Use History: None Reported Past Drug Use History: None Reported - Past Family History Father Family Medical History: Hypertension Mother Family Medical History: Diabetes Mellitus Brother(s) Family Medical History: No Reported History Sister(s) Family Medical History: Cancer Son(s) Family Medical History: No Reported History Daughter(s) Family Medical History: No Reported History Medications and Allergies Home Medications Medication Instructions Recorded Confirmed Type Aspirin EC [Ecotrin Low Dose] 81 mg PO DAILY 01/11/19 01/11/19 History Atenolol [Tenormin] 25 mg PO BID 01/11/19 01/11/19 History Famotidine [Pepcid] 40 mg PO BID 01/11/19 01/11/19 History LORazepam [Ativan] 0.5 mg PO BID 01/11/19 01/11/19 History OXcarbazepine [Oxtellar Xr] 1,200 mg PO DAILY 01/11/19 01/11/19 History Pantoprazole Sodium [Protonix] 20 mg PO DAILY 01/11/19 01/11/19 History clonazePAM [KlonoPIN] 1.5 mg PO BID 01/11/19 01/11/19 History Allergies Allergy/AdvReac Type Severity Reaction Status Date / Time amoxicillin Allergy Rash/Hives Verified 01/11/19 16:56 hydromorphone [From Dilaudid] Allergy Unknown Verified 01/11/19 16:56 codeine AdvReac Vomiting Verified 01/11/19 16:56 lisinopril AdvReac Unknown Verified 01/11/19 16:56 metronidazole [From Flagyl] AdvReac Nausea & Verified 01/11/19 16:56 Vomiting paper tape Allergy Unknown Uncoded 01/11/19 16:00 Physical Examination - Vital Signs Vital Signs: Vital Signs Temp Pulse Pulse Resp BP BP Pulse Ox 01/12/19 12:00 98.5 F 58 L 17 128/67 96 01/12/19 08:00 61 17 146/78 94 L 01/12/19 04:00 98.6 F 78 18 112/75 93 L 01/11/19 23:45 98.2 F 69 16 105/70 96 01/11/19 19:29 98.3 F 72 16 139/69 94 L 01/11/19 18:42 149/87 01/11/19 17:42 76 16 153/98 97 01/11/19 15:58 98.2 F 94 20 156/94 96 Intake and Output 01/12/19 01/12/19 01/12/19 06:59 14:59 22:59 Intake Total 240 Output Total 400 Balance -160 Intake: Oral 240 Output: Urine 400 Other: Voiding Method Toilet # Voids 1 Weight 124.2 kg On examination patient is a middle aged female, moderately obese, in no distress. She is alert and awake, laying comfortably in the bed. Patient is mute, not speaking, but otherwise appears completely normal. Muscle strength, visual beverly, facial symmetry, reflexes, coordination and sensations are all normal. 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 * Anxiety * Depression Plan: * Continue same dose of Oxtellar XR 1200 mg daily. * Neurologically cleared for discharge, if cleared by psychiatry. * Patient has an appointment with her neurologist on 01/17/2019.
[2019-01-12 16:49] VITALS: BP 136/86; PULSE 59; RESP 19; TEMP 98.3
[2019-01-12] MEDS ORDERED: INSULIN ASPART (NovoLOG) 100 UNIT/ML VIAL SQ SCH (17:30)
--- NOTE | 2019-01-20 11:48 | DS ---
DISCHARGE SUMMARY DATE OF ADMISSION: 01/11/2019 DATE OF DISCHARGE: 01/12/2019 DISCHARGE MEDICATIONS: 1. Pepcid 40 mg b.i.d. 2. Oxtellar XR 1200 mg daily. 3. Aspirin 81 mg daily./. 4. Tenormin 25 b.i.d. 5. Klonopin 1.5 mg b.i.d. and 0.5 mg b.i.d. CONDITION: Stable. PROGNOSIS: Guarded. The patient was transferred to a tertiary center due to worsening seizures. Neurology saw her, thought to have pseudoseizures due to severe anxiety in her life and depression. She was started on Oxtellar XR 1200 mg daily and she was discharged home from Neurology standpoint. Follow up as an outpatient. MARIELOS / OZIEL: [id number] /
== END 2019-01-12 16:40 | disposition home or self-care (01) ==
LOC: EC 15:52 → 3SCARD 18:37 → INTOOBSV 18:37
PROVIDERS: ADMIT Family Medicine; ATTEND Family Medicine
DX: F44.5 Conversion disorder with seizures or convulsions (principal); R47.01 Aphasia; F41.9 Anxiety disorder, unspecified; E11.9 Type 2 diabetes mellitus without complications; M32.9 Systemic lupus erythematosus, unspecified; E78.5 Hyperlipidemia, unspecified; F17.200 Nicotine dependence, unspecified, uncomplicated; I10 Essential (primary) hypertension; K21.9 Gastro-esophageal reflux disease without esophagitis; E66.01 Morbid (severe) obesity due to excess calories; Z68.42 Body mass index [BMI] 45.0-49.9, adult; F32.9 Major depressive disorder, single episode, unspecified; Z79.82 Long term (current) use of aspirin; Z79.899 Other long term (current) drug therapy; Z88.5 Allergy status to narcotic agent; Z88.0 Allergy status to penicillin; Z88.8 Allergy status to other drugs, medicaments and biological substances; Z91.048 Other nonmedicinal substance allergy status; Z87.440 Personal history of urinary (tract) infections; Z90.49 Acquired absence of other specified parts of digestive tract; Z98.51 Tubal ligation status; Z90.711 Acquired absence of uterus with remaining cervical stump; Z80.0 Family history of malignant neoplasm of digestive organs; Z82.49 Family history of ischemic heart disease and other diseases of the circulatory system; Z83.3 Family history of diabetes mellitus
CPT/HCPCS: 96375; 96361; 96374; 99285; 36415; 93005; 97162; 80053; 80183; 82140; 82550; 84484; 85025; 85610; 85730; 81001; 80306; 71046; 70450; G0378 ×2; J2060; J2405

== ENCOUNTER 2019-01-16 22:24 | Emergency (ER) | payer OTHER ==
--- NOTE | 2019-01-16 22:28 | ED ---
General Adult HPI - General Stated complaint: Seizure Time Seen by Provider: 01/16/19 22:28 - History of Present Illness Initial comments: Juvenal is a 43-year-old female who presents to the ER today for evaluation of seizure. Significant other bedside states the patient has undergone a very thorough evaluation and multiple inpatient admissions and has been diagnosed with dissociative seizures. He reports that she used only have approximately one week but it's been having that much more frequently lately. He reports that last week she had 3 and 1 day and was admitted to the hospital she was discharged on Tuesday but today he reports she's had 4 episodes of dissociative seizures. He describes her seizures as her having staring spells and then being mute for 4-6 hours afterwards him up. He states that while the patient is mute or unable to speak. She is able to communicate by pointing to things or writing. She has no tonic-clonic activity. Patient is able to nod or shortness but does not indicate any other way. - Related Data Home Medications Medication Instructions Recorded Confirmed Aspirin EC [Ecotrin Low Dose] 81 mg PO DAILY 01/11/19 01/16/19 Atenolol [Tenormin] 25 mg PO BID 01/11/19 01/16/19 Famotidine [Pepcid] 40 mg PO BID 01/11/19 01/16/19 LORazepam [Ativan] 0.5 mg PO BID 01/11/19 01/16/19 OXcarbazepine [Oxtellar Xr] 1,200 mg PO DAILY 01/11/19 01/16/19 Pantoprazole Sodium [Protonix] 20 mg PO DAILY 01/11/19 01/16/19 clonazePAM [KlonoPIN] 1.5 mg PO BID 01/11/19 01/16/19 Allergies Allergy/AdvReac Type Severity Reaction Status Date / Time amoxicillin Allergy Rash/Hives Verified 01/16/19 22:29 hydromorphone [From Dilaudid] Allergy Unknown Verified 01/16/19 22:29 codeine AdvReac Vomiting Verified 01/16/19 22:29 lisinopril AdvReac Unknown Verified 01/16/19 22:29 metronidazole [From Flagyl] AdvReac Nausea & Verified 01/16/19 22:29 Vomiting paper tape Allergy Unknown Uncoded 01/11/19 16:00 Review of Systems ROS Statement: Those systems with pertinent positive or pertinent negative responses have been documented in the HPI. ROS Other: All systems not noted in ROS Statement are negative. Past Medical History Past Medical History: Diabetes Mellitus, GERD/Reflux, Hyperlipidemia, Hypertension, Seizure Disorder Additional Past Medical History / Comment(s): autoimmune hepatitis, LUPUS, UTI, pseudo-seizures History of Any Multi-Drug Resistant Organisms: None Reported Past Surgical History: Ablation, Cholecystectomy, Hysterectomy, Tubal Ligation Additional Past Surgical History / Comment(s): Cholecystectomy 2013, partial hysterectomy 2012, tubal ligation and NovaSure ablation in 2011 Past Anesthesia/Blood Transfusion Reactions: No Reported Reaction Past Psychological History: Anxiety, Depression Smoking Status: Current every day smoker Past Alcohol Use History: None Reported Past Drug Use History: None Reported - Past Family History Father Family Medical History: Hypertension Mother Family Medical History: Diabetes Mellitus Brother(s) Family Medical History: No Reported History Sister(s) Family Medical History: Cancer Son(s) Family Medical History: No Reported History Daughter(s) Family Medical History: No Reported History General Exam - General Exam Comments Initial Comments: Physical Exam GENERAL: Morbidly obese patient resting in bed, nonverbal upon initial evaluation which has been reports is due to her seizures HENT: Normocephalic, Atraumatic. EYES: PERRL, EOMI PULMONARY: Unlabored respirations. No audible rales rhonchi or wheezing was noted. CARDIOVASCULAR: There is a regular rate and rhythm without any murmurs gallops or rubs. ABDOMEN: Soft and nontender with normal bowel sounds. SKIN: Skin is clear with no lesions or rashes and otherwise unremarkable. : Deferred NEUROLOGIC: MUSCULOSKELETAL: Normal extremities with adequate strength and full range of motion. No lower extremity swelling or edema. No calf tenderness. PSYCHIATRIC: Unable to assess Course Vital Signs 01/16/19 22:33 Temperature 97.7 F Pulse Rate 61 Respiratory 16 Rate Blood Pressure 167/95 O2 Sat by Pulse 100 Oximetry Medical Decision Making - Medical Decision Making Patient was seen and evaluated, history is obtained primarily from the boyfriend at bedside as well as review of medical record Patient apparently has a history of dissociative seizures which are described as staring spells followed by periods of selective mutism, though the patient is able to communicate right or not or pointing to things. Patient was evaluated last week by neurology and psychiatric, both recommended further outpatient psychiatric treatment. Labs and imaging were unremarkable. Lactic acid is not elevated. Patient was able to be heard talking to the , however, when I walk in the room she would stare off and will not speak to me she would occasionally shrugs her shoulders or respond to her , while I was in the room. Because we do not have neurosurgery available this week. I offer the patient option for transfer to [facility] versus follow-up with her neurologist as scheduled later today. Boyfriend at bedside asked her and the patient indicated that she would prefer to be discharged home. At this time I don't feel patient's have any active seizure-like activity. I do feel she'll benefit from follow-up with her neurologist. - Lab Data Result diagrams: 01/16/19 23:20 01/16/19 23:20 Lab Results 01/16/19 01/16/19 01/16/19 Range/Units 22:57 23:20 23:20 WBC 12.8 H (3.8-10.6) k/uL RBC 5.28 (3.80-5.40) m/uL Hgb 14.5 (11.4-16.0) gm/dL Hct 44.8 (34.0-46.0) % MCV 85.0 (80.0-100.0) fL MCH 27.5 (25.0-35.0) pg MCHC 32.4 (31.0-37.0) g/dL RDW 13.9 (11.5-15.5) % Plt Count 345 (150-450) k/uL Neutrophils % 68 % Lymphocytes % 21 % Monocytes % 6 % Eosinophils % 4 % Basophils % 1 % Neutrophils # 8.7 H (1.3-7.7) k/uL Lymphocytes # 2.6 (1.0-4.8) k/uL Monocytes # 0.7 (0-1.0) k/uL Eosinophils # 0.5 (0-0.7) k/uL Basophils # 0.1 (0-0.2) k/uL Sodium 134 L (137-145) mmol/L Potassium 4.3 (3.5-5.1) mmol/L Chloride 102 (98-107) mmol/L Carbon Dioxide 25 (22-30) mmol/L Anion Gap 7 mmol/L BUN 9 (7-17) mg/dL Creatinine 0.42 L (0.52-1.04) mg/dL Est GFR (CKD-EPI)AfAm >90 (>60 ml/min/1.73 sqM) Est GFR (CKD-EPI)NonAf >90 (>60 ml/min/1.73 sqM) Glucose 84 (74-99) mg/dL POC Glucose (mg/dL) 86 (75-99) mg/dL POC Glu Meat Lugger ID Jamel Love Plasma Lactic Acid [place] (0.7-2.0) mmol/L Calcium 9.3 (8.4-10.2) mg/dL Total Bilirubin 0.4 (0.2-1.3) mg/dL AST 20 (14-36) U/L ALT 10 (9-52) U/L Alkaline Phosphatase 87 (38-126) U/L Total Protein 7.4 (6.3-8.2) g/dL Albumin 4.4 (3.5-5.0) g/dL TSH 5.320 H (0.465-4.680) mIU/L Free T4 0.85 (0.78-2.19) ng/dL Urine Color Urine Appearance (Clear) Urine pH (5.0-8.0) Ur Specific [place] (1.001-1.035) Urine Protein (Negative) Urine Glucose (UA) (Negative) Urine Ketones (Negative) Urine Blood (Negative) Urine Nitrite (Negative) Urine Bilirubin (Negative) Urine Urobilinogen (<2.0) mg/dL Ur Leukocyte Esterase (Negative) Urine RBC (0-5) /hpf Urine WBC (0-5) /hpf Ur Squamous Epith Cells (0-4) /hpf Urine Bacteria (None) /hpf Urine Mucus (None) /hpf Urine Opiates Screen (NotDetected) Ur Oxycodone Screen (NotDetected) Urine Methadone Screen (NotDetected) Ur Propoxyphene Screen (NotDetected) Ur Barbiturates Screen (NotDetected) U Tricyclic Antidepress (NotDetected) Ur Phencyclidine Scrn (NotDetected) Ur Amphetamines Screen (NotDetected) U Methamphetamines Scrn (NotDetected) U Benzodiazepines Scrn (NotDetected) Urine Cocaine Screen (NotDetected) U Marijuana (THC) Screen (NotDetected) Serum Alcohol <10 mg/dL 01/16/19 01/17/19 Range/Units 23:20 00:36 WBC (3.8-10.6) k/uL RBC (3.80-5.40) m/uL Hgb (11.4-16.0) gm/dL Hct (34.0-46.0) % MCV (80.0-100.0) fL MCH (25.0-35.0) pg MCHC (31.0-37.0) g/dL RDW (11.5-15.5) % Plt Count (150-450) k/uL Neutrophils % % Lymphocytes % % Monocytes % % Eosinophils % % Basophils % % Neutrophils # (1.3-7.7) k/uL Lymphocytes # (1.0-4.8) k/uL Monocytes # (0-1.0) k/uL Eosinophils # (0-0.7) k/uL Basophils # (0-0.2) k/uL Sodium (137-145) mmol/L Potassium (3.5-5.1) mmol/L Chloride (98-107) mmol/L Carbon Dioxide (22-30) mmol/L Anion Gap mmol/L BUN (7-17) mg/dL Creatinine (0.52-1.04) mg/dL Est GFR (CKD-EPI)AfAm (>60 ml/min/1.73 sqM) Est GFR (CKD-EPI)NonAf (>60 ml/min/1.73 sqM) Glucose (74-99) mg/dL POC Glucose (mg/dL) (75-99) mg/dL POC Glu Meat Lugger ID Plasma Lactic Acid [place] 1.3 (0.7-2.0) mmol/L Calcium (8.4-10.2) mg/dL Total Bilirubin (0.2-1.3) mg/dL AST (14-36) U/L ALT (9-52) U/L Alkaline Phosphatase (38-126) U/L Total Protein (6.3-8.2) g/dL Albumin (3.5-5.0) g/dL TSH (0.465-4.680) mIU/L Free T4 (0.78-2.19) ng/dL Urine Color Yellow Urine Appearance Clear (Clear) Urine pH 7.0 (5.0-8.0) Ur Specific [place] 1.029 (1.001-1.035) Urine Protein Trace H (Negative) Urine Glucose (UA) Negative (Negative) Urine Ketones Negative (Negative) Urine Blood Negative (Negative) Urine Nitrite Negative (Negative) Urine Bilirubin Negative (Negative) Urine Urobilinogen <2.0 (<2.0) mg/dL Ur Leukocyte Esterase Negative (Negative) Urine RBC 2 (0-5) /hpf Urine WBC 1 (0-5) /hpf Ur Squamous Epith Cells 1 (0-4) /hpf Urine Bacteria Rare H (None) /hpf Urine Mucus Few H (None) /hpf Urine Opiates Screen Not Detected (NotDetected) Ur Oxycodone Screen Not Detected (NotDetected) Urine Methadone Screen Not Detected (NotDetected) Ur Propoxyphene Screen Not Detected (NotDetected) Ur Barbiturates Screen Not Detected (NotDetected) U Tricyclic Antidepress Not Detected (NotDetected) Ur Phencyclidine Scrn Not Detected (NotDetected) Ur Amphetamines Screen Not Detected (NotDetected) U Methamphetamines Scrn Not Detected (NotDetected) U Benzodiazepines Scrn Detected H (NotDetected) Urine Cocaine Screen Not Detected (NotDetected) U Marijuana (THC) Screen Not Detected (NotDetected) Serum Alcohol mg/dL Disposition Clinical Impression: Conversion aphonia Disposition: HOME SELF-CARE Condition: Stable Is patient prescribed a controlled substance at d/c from ED?: No Referrals: Sandip Ashley MD [Primary Care Provider] - 1-2 days
[2019-01-16 22:36] VITALS: BP 167/95; PULSE 61; RESP 16; TEMP 97.7
[2019-01-16] MEDS ORDERED: SODIUM CHLORIDE 0.9% 500 ML 500 ML IV STA (22:46)
[2019-01-17 04:09] LABS: Glucose,Whole Blood 86 mg/dL (75-99)
[2019-01-17 06:00] LABS: Basophils # (A) 0.1 k/uL (0-0.2); Basophils % (A) 1 %; Eosinophils # (A) 0.5 k/uL (0-0.7); Eosinophils % (A) 4 %; HCT 44.8 % (34.0-46.0); HGB 14.5 gm/dL (11.4-16.0); Lymphocytes # (A) 2.6 k/uL (1.0-4.8); Lymphocytes % (A) 21 %; MCH 27.5 pg (25.0-35.0); MCHC 32.4 g/dL (31.0-37.0); Monocytes # (A) 0.7 k/uL (0-1.0); Monocytes % (A) 6 %; Neutrophils # (A) 8.7 k/uL (1.3-7.7); Neutrophils % (A) 68 %; Platelet Count 345 k/uL (150-450); RBC 5.28 m/uL (3.80-5.40); RDW 13.9 % (11.5-15.5); WBC 12.8 k/uL (3.8-10.6)
[2019-01-17 06:06] LABS: Amphetamine Screen,Urine Not Detected (NotDetected); Barbiturate Screen,Urine Not Detected (NotDetected); Benzodiazepines Screen,Urine Detected (NotDetected); Cocaine Screen,Urine Not Detected (NotDetected); Methadone Screen, Urine Not Detected (NotDetected); Opiate Screen,Urine Not Detected (NotDetected); Oxycodone Screen, Urine Not Detected (NotDetected); Phencyclidine Screen,Urine Not Detected (NotDetected); Tricyclic Antidepressant,Urine Not Detected (NotDetected); Urn Cannabinoid Scrn Not Detected (NotDetected)
[2019-01-17 06:07] LABS: Appearance,Urine Clear (Clear); Bacteria,Urine Rare /hpf; Bilirubin,Urine Negative (Negative); Blood,Urine Negative (Negative); Color,Urine Yellow; Glucose,Urine (UA) Negative (Negative); Ketones,Urine Negative (Negative); Leukocyte Esterase,Urine Negative (Negative); Mucus,Urine Few /hpf; Nitrite,Urine Negative (Negative); Protein,Urine Trace (Negative); RBC,Urine 2 /hpf (0-5); Specific Gravity,Urine 1.029 (1.001-1.035); Squamous Epithelial Cell,Urine 1 /hpf (0-4); Urobilinogen,Urine <2.0 mg/dL (<2.0); WBC,Urine 1 /hpf (0-5)
[2019-01-17 06:07] LABS: ALT 10 U/L (9-52); AST 20 U/L (14-36); Albumin 4.4 g/dL (3.5-5.0); Alcohol <10 mg/dL; Alkaline Phosphatase 87 U/L (38-126); Anion Gap 7 mmol/L; Blood Urea Nitrogen 9 mg/dL (7-17); Calcium 9.3 mg/dL (8.4-10.2); Carbon Dioxide 25 mmol/L (22-30); Chloride 102 mmol/L (98-107); Glucose 84 mg/dL (74-99); Potassium 4.3 mmol/L (3.5-5.1); Sodium 134 mmol/L (137-145); T4, Free (Free Thyroxine) 0.85 ng/dL (0.78-2.19); Total Bilirubin 0.4 mg/dL (0.2-1.3); Total Protein 7.4 g/dL (6.3-8.2)
== END 2019-01-17 01:30 | disposition home or self-care (01) ==
LOC: EC 22:24
DX: R49.1 Aphonia (principal); I10 Essential (primary) hypertension; K21.9 Gastro-esophageal reflux disease without esophagitis; G40.909 Epilepsy, unspecified, not intractable, without status epilepticus; F41.9 Anxiety disorder, unspecified; F32.9 Major depressive disorder, single episode, unspecified; F17.200 Nicotine dependence, unspecified, uncomplicated; Z79.82 Long term (current) use of aspirin; Z79.899 Other long term (current) drug therapy; Z88.0 Allergy status to penicillin; Z88.5 Allergy status to narcotic agent; Z88.1 Allergy status to other antibiotic agents; Z88.8 Allergy status to other drugs, medicaments and biological substances; Z91.048 Other nonmedicinal substance allergy status; Z90.711 Acquired absence of uterus with remaining cervical stump
CPT/HCPCS: 36415; 93005; 84439; 80053; 83605; 84443; 85025; 81003; 80306; 99284; G0480; 80320

== ENCOUNTER → 2019-03-12 | Outpatient (CLI) | payer OTHER ==
[2019-03-13 00:22] LABS: African American GFR (CKD) 130.3 (60.0-200.0); Albumin 4.4 g/dL (3.80-4.90); Albumin/Globulin Ratio 2.2 (1.60-3.17); Anion Gap 9.3 mmol/L (4.00-12.00); BUN/Creat Ratio 16.67 Ratio (12.00-20.00); Calcium 9.2 mg/dL (8.7-10.3); Carbon Dioxide 21.7 mmol/L (21.6-31.8); Potassium 4.4 mmol/L (3.5-5.5); Total Bilirubin 0.2 mg/dL (0.2-1.2); Total Protein 6.4 g/dL (6.2-8.2)
== END | disposition home or self-care (01) ==
LOC: LABWHC1 14:20
PROVIDERS: ATTEND Physician Assistant
DX: E87.1 Hypo-osmolality and hyponatremia (principal)
CPT/HCPCS: 36415; 80053

== ENCOUNTER 2019-04-03 18:25 | Emergency (ER) | payer OTHER ==
[2019-04-03] MEDS ORDERED: KETOROLAC 30 MG/ML 1 ML VIAL IVP STA (19:30)
[2019-04-03] MEDS ORDERED: ONDANSETRON 4 MG/2 ML VIAL IVP STA (19:30)
[2019-04-03] MEDS ORDERED: SODIUM CHLORIDE 0.9% 1,000 ML IV ONE (19:30)
--- NOTE | 2019-04-03 20:19 | ED ---
General Adult HPI - General Chief complaint: ENT Stated complaint: Rash, fever Time Seen by Provider: 04/03/19 18:59 Source: patient Mode of arrival: ambulatory Limitations: no limitations - History of Present Illness Initial comments: 43-year-old female presenting with generalized body aches and sore anterior neck for the last 3 days. States she's had decreased appetite and decreased urine output. She denies sick contacts, headache, photophobia, measurable fever, cough, shortness of breath, chest pain, or sore throat. She admits to mild nausea but denies any vomiting or diarrhea. Denies any dysuria. She states she's been unable to try anything for her pain because her fibromyalgia doctor told her not to take any Motrin or Tylenol. Patient recently started Lamictal 3 weeks prior and has been having an increasing tapering dose. She developed a rash on her anterior chest today. She called her psychiatrist office to instructed her to come to the ER to rule out Schmidt-Zay. - Related Data Home Medications Medication Instructions Recorded Confirmed Aspirin EC [Ecotrin Low Dose] 81 mg PO DAILY 01/11/19 04/03/19 Atenolol [Tenormin] 25 mg PO BID 01/11/19 04/03/19 Famotidine [Pepcid] 40 mg PO BID 01/11/19 04/03/19 Pantoprazole Sodium [Protonix] 20 mg PO DAILY 01/11/19 04/03/19 Ergocalciferol (Vitamin D2) 50,000 unit PO Q14D 04/03/19 04/03/19 [Drisdol] Levothyroxine Sodium [Synthroid] 100 mcg PO DAILY 04/03/19 04/03/19 clonazePAM [KlonoPIN] 1 mg TID 04/03/19 04/03/19 lamoTRIgine [LaMICtal] See Taper PO DIRECTED 04/03/19 04/03/19 Previous Rx's Medication Instructions Recorded Ibuprofen [Motrin] 600 mg PO Q6HR PRN #30 tab 04/03/19 Ondansetron [Zofran ODT] 4 mg PO Q8HR PRN #10 tab 04/03/19 Allergies Allergy/AdvReac Type Severity Reaction Status Date / Time amoxicillin Allergy Rash/Hives Verified 04/03/19 19:04 hydromorphone [From Dilaudid] Allergy Unknown Verified 04/03/19 19:04 codeine AdvReac Vomiting Verified 04/03/19 19:04 lisinopril AdvReac Unknown Verified 04/03/19 19:04 lorazepam [From Ativan] AdvReac RACING Verified 04/03/19 19:04 HEART metronidazole [From Flagyl] AdvReac Nausea & Verified 04/03/19 19:04 Vomiting paper tape Allergy Unknown Uncoded 04/03/19 18:30 Review of Systems ROS Statement: Those systems with pertinent positive or pertinent negative responses have been documented in the HPI. Review of Systems Constitutional: Denies fever, chills Eyes: Denies change in vision, Denies pain Ears, nose, mouth, throat: Denies headaches, Denies sore throat Cardiovascular: Denies chest pain. Denies palpitations Respiratory: Denies shortness of breath, Denies cough Gastrointestinal: Denies abdominal pain. Denies nausea, vomiting, diarrhea. Genitourinary: Denies hematuria, Denies infections Musculoskeletal: Denies pain, Denies swelling Integumentary: Positive rash Neurological: Denies headache, focal weakness, focal numbness Psychiatric: Denies anxiety, Denies depression Hematologic/Lymphatic: Denies easy bleeding or bruising ROS Other: All systems not noted in ROS Statement are negative. Past Medical History Past Medical History: Diabetes Mellitus, GERD/Reflux, Hyperlipidemia, Hypertension, Seizure Disorder Additional Past Medical History / Comment(s): autoimmune hepatitis, LUPUS, UTI, pseudo-seizures History of Any Multi-Drug Resistant Organisms: None Reported Past Surgical History: Ablation, Cholecystectomy, Hysterectomy, Tubal Ligation Additional Past Surgical History / Comment(s): Cholecystectomy 2013, partial hysterectomy 2012, tubal ligation and NovaSure ablation in 2011 Past Anesthesia/Blood Transfusion Reactions: No Reported Reaction Past Psychological History: Anxiety, Depression Smoking Status: Current every day smoker Past Alcohol Use History: None Reported Past Drug Use History: None Reported - Past Family History Father Family Medical History: Hypertension Mother Family Medical History: Diabetes Mellitus Brother(s) Family Medical History: No Reported History Sister(s) Family Medical History: Cancer Son(s) Family Medical History: No Reported History Daughter(s) Family Medical History: No Reported History General Exam - General Exam Comments Initial Comments: General: Awake, alert, No acute Distress HENT: Normocephalic. Atraumatic. No post oropharyngeal erythema or edema. Submental cervical lymphadenopathy. TMs without erythema or effusion bilaterally. No oropharyngeal lesions. Eyes: PERRL. EOMI. No scleral icterus. No injected conjunctiva Neck: Full ROM. No nuchal rigidity Chest/Lungs: Clear to auscultation bilaterally. No wheezing, rhonchi, or rales Cardiac: Regular rate, rhythm. No murmurs or rubs Abdomen/GI: Soft, nontender, nondistended. No rebound, guarding, or rigidity. Musculoskeletal: Full ROM Skin: Warm, dry, intact. Mild maculopapular rash to anterior chest without extension to extremities. No sloughing of skin. No blisters or bullae. Neurologic: A/Ox3, no weakness, no sensory deficit, no abnormal gait, no coordination deficit Limitations: no limitations Course Vital Signs 04/03/19 04/03/19 04/03/19 18:26 20:18 22:23 Temperature 99.6 F 98.1 F Pulse Rate 103 H 82 75 Respiratory 20 18 20 Rate Blood Pressure 127/84 115/68 113/74 O2 Sat by Pulse 98 95 97 Oximetry Medical Decision Making - Medical Decision Making 43-year-old female presenting with rash and lymphadenopathy. Initial exam the patient is awake, alert, no acute distress. VSS. Patient was also describing full body aches. She denies any headache, focal weakness, photophobia. The patient has no nuchal rigidity on exam and is afebrile in the department. Discussed with patient the low likelihood of meningitis and she deferred LP at this time. The patient's laboratory workup was unremarkable including a Monospot test. The rash on her chest is not concerning for Ben Zay's, and I told the patient she should continue her increasing dose of Lamictal extracted by her psychiatrist. It is also not consistent with an allergic reaction. She felt improved in the department and was well appearing. She was tolerating PO. No further emergent workup indicated. The patient was given return to ED instructions. They were instructed to follow up with their primary care provider. Stable for discharge at this time. - Lab Data Result diagrams: 04/03/19 20:10 04/03/19 20:10 Lab Results 04/03/19 04/03/19 04/03/19 Range/Units 20:10 20:10 20:10 WBC 5.1 (3.8-10.6) k/uL RBC 5.58 H (3.80-5.40) m/uL Hgb 15.2 (11.4-16.0) gm/dL Hct 45.9 (34.0-46.0) % MCV 82.4 (80.0-100.0) fL MCH 27.2 (25.0-35.0) pg MCHC 33.0 (31.0-37.0) g/dL RDW 14.9 (11.5-15.5) % Plt Count 135 L (150-450) k/uL Neutrophils % 60 % Lymphocytes % 22 % Monocytes % 9 % Eosinophils % 5 % Basophils % 1 % Neutrophils # 3.1 (1.3-7.7) k/uL Lymphocytes # 1.1 (1.0-4.8) k/uL Monocytes # 0.5 (0-1.0) k/uL Eosinophils # 0.3 (0-0.7) k/uL Basophils # 0.0 (0-0.2) k/uL Sodium 138 (137-145) mmol/L Potassium 4.0 (3.5-5.1) mmol/L Chloride 106 (98-107) mmol/L Carbon Dioxide 22 (22-30) mmol/L Anion Gap 10 mmol/L BUN 7 (7-17) mg/dL Creatinine 0.53 (0.52-1.04) mg/dL Est GFR (CKD-EPI)AfAm >90 (>60 ml/min/1.73 sqM) Est GFR (CKD-EPI)NonAf >90 (>60 ml/min/1.73 sqM) Glucose 99 (74-99) mg/dL Calcium 9.0 (8.4-10.2) mg/dL TSH 0.279 L (0.465-4.680) mIU/L Free T4 1.41 (0.78-2.19) ng/dL HCG, Qual Not Detected Urine Color Urine Appearance (Clear) Urine pH (5.0-8.0) Ur Specific [place] (1.001-1.035) Urine Protein (Negative) Urine Glucose (UA) (Negative) Urine Ketones (Negative) Urine Blood (Negative) Urine Nitrite (Negative) Urine Bilirubin (Negative) Urine Urobilinogen (<2.0) mg/dL Ur Leukocyte Esterase (Negative) Urine RBC (0-5) /hpf Ur Squamous Epith Cells (0-4) /hpf Amorphous Sediment (None) /hpf Urine Mucus (None) /hpf Heterophile Antibody (Negative) Group A Strep Rapid Negative (Negative) 04/03/19 04/03/19 Range/Units 20:10 20:50 WBC (3.8-10.6) k/uL RBC (3.80-5.40) m/uL Hgb (11.4-16.0) gm/dL Hct (34.0-46.0) % MCV (80.0-100.0) fL MCH (25.0-35.0) pg MCHC (31.0-37.0) g/dL RDW (11.5-15.5) % Plt Count (150-450) k/uL Neutrophils % % Lymphocytes % % Monocytes % % Eosinophils % % Basophils % % Neutrophils # (1.3-7.7) k/uL Lymphocytes # (1.0-4.8) k/uL Monocytes # (0-1.0) k/uL Eosinophils # (0-0.7) k/uL Basophils # (0-0.2) k/uL Sodium (137-145) mmol/L Potassium (3.5-5.1) mmol/L Chloride (98-107) mmol/L Carbon Dioxide (22-30) mmol/L Anion Gap mmol/L BUN (7-17) mg/dL Creatinine (0.52-1.04) mg/dL Est GFR (CKD-EPI)AfAm (>60 ml/min/1.73 sqM) Est GFR (CKD-EPI)NonAf (>60 ml/min/1.73 sqM) Glucose (74-99) mg/dL Calcium (8.4-10.2) mg/dL TSH (0.465-4.680) mIU/L Free T4 (0.78-2.19) ng/dL HCG, Qual Urine Color [place] Urine Appearance Turbid H (Clear) Urine pH 5.5 (5.0-8.0) Ur Specific [place] 1.031 (1.001-1.035) Urine Protein 1+ H (Negative) Urine Glucose (UA) Negative (Negative) Urine Ketones Negative (Negative) Urine Blood Small H (Negative) Urine Nitrite Negative (Negative) Urine Bilirubin Negative (Negative) Urine Urobilinogen 2.0 (<2.0) mg/dL Ur Leukocyte Esterase Negative (Negative) Urine RBC 10 H (0-5) /hpf Ur Squamous Epith Cells 9 H (0-4) /hpf Amorphous Sediment Moderate H (None) /hpf Urine Mucus Many H (None) /hpf Heterophile Antibody Negative (Negative) Group A Strep Rapid (Negative) Disposition Clinical Impression: Body aches Disposition: HOME SELF-CARE Condition: Good Instructions (If sedation given, give patient instructions): Viral Syndrome (ED) Additional Instructions: Take Motrin with food. Zofran may cause headache or constipation. Prescriptions: Ibuprofen [Motrin] 600 mg PO Q6HR PRN #30 tab PRN Reason: Pain Ondansetron [Zofran ODT] 4 mg PO Q8HR PRN #10 tab PRN Reason: Nausea Is patient prescribed a controlled substance at d/c from ED?: No Referrals: Sandip Ashley MD [Primary Care Provider] - 1-2 days
[2019-04-03 20:28] LABS: Basophils % (A) 1 %; Eosinophils # (A) 0.3 k/uL (0-0.7); Eosinophils % (A) 5 %; HCT 45.9 % (34.0-46.0); HGB 15.2 gm/dL (11.4-16.0); Lymphocytes # (A) 1.1 k/uL (1.0-4.8); Lymphocytes % (A) 22 %; MCH 27.2 pg (25.0-35.0); MCV 82.4 fL (80.0-100.0); Mean Platelet Volume 7.6; Monocytes # (A) 0.5 k/uL (0-1.0); Monocytes % (A) 9 %; Neutrophils # (A) 3.1 k/uL (1.3-7.7); Neutrophils % (A) 60 %; Platelet Count 135 k/uL (150-450); RBC 5.58 m/uL (3.80-5.40); RDW 14.9 % (11.5-15.5); WBC 5.1 k/uL (3.8-10.6)
[2019-04-03 20:39] LABS: HCG,Qualitative Serum Not Detected
[2019-04-03 20:48] LABS: African American GFR (CKD) >90 (>60 ml/min/1.73 sqM); Anion Gap 10 mmol/L; Blood Urea Nitrogen 7 mg/dL (7-17); Carbon Dioxide 22 mmol/L (22-30); Chloride 106 mmol/L (98-107); Glucose 99 mg/dL (74-99); Sodium 138 mmol/L (137-145)
[2019-04-03 21:18] LABS: Amorphous Sediment,Urine Moderate /hpf; Appearance,Urine Turbid (Clear); Bilirubin,Urine Negative (Negative); Blood,Urine Small (Negative); Color,Urine Orange; Glucose,Urine (UA) Negative (Negative); Ketones,Urine Negative (Negative); Leukocyte Esterase,Urine Negative (Negative); Mucus,Urine Many /hpf; Nitrite,Urine Negative (Negative); PH, Urine 5.5 (5.0-8.0); Protein,Urine 1+ (Negative); RBC,Urine 10 /hpf (0-5); Specific Gravity,Urine 1.031 (1.001-1.035); Squamous Epithelial Cell,Urine 9 /hpf (0-4)
[2019-04-03 21:50] LABS: T4, Free (Free Thyroxine) 1.41 ng/dL (0.78-2.19)
[2019-04-03 22:24] VITALS: BP 113/74; PULSE 75; RESP 20; TEMP 98.1
== END 2019-04-03 22:24 | disposition home or self-care (01) ==
LOC: EC 18:25
DX: R52 Pain, unspecified (principal); R21 Rash and other nonspecific skin eruption; R11.0 Nausea; E11.9 Type 2 diabetes mellitus without complications; K21.9 Gastro-esophageal reflux disease without esophagitis; I10 Essential (primary) hypertension; G40.909 Epilepsy, unspecified, not intractable, without status epilepticus; F17.200 Nicotine dependence, unspecified, uncomplicated; Z79.890 Hormone replacement therapy; Z79.82 Long term (current) use of aspirin; Z79.899 Other long term (current) drug therapy; Z88.0 Allergy status to penicillin; Z88.5 Allergy status to narcotic agent; Z88.1 Allergy status to other antibiotic agents; Z88.8 Allergy status to other drugs, medicaments and biological substances; Z91.048 Other nonmedicinal substance allergy status
CPT/HCPCS: 36415; 80048; 81001; 84439; 84443; 84703; 85025; 86308; 87081; 87430; 96361; 96374; 96375; 99283

== ENCOUNTER 2019-04-20 16:10 | Emergency (ER) | payer OTHER ==
[2019-04-20 16:14] VITALS: BP 149/90; PULSE 66; RESP 18; TEMP 97.8
--- NOTE | 2019-04-20 16:39 | ED ---
URI HPI - General Chief Complaint: Upper Respiratory Infection Stated Complaint: rash Time Seen by Provider: 04/20/19 16:30 Source: patient Mode of arrival: ambulatory Limitations: no limitations - History of Present Illness Initial Comments: 43-year-old female presented for rash. Patient states for a month now she has had a dull aching headache she denies is occurring suddenly her being the worst headache of her life she states is daily. Patient denies any fevers, neck stiffness or photophobia. Patient states she also has had a rash that began wh en she changed her dose of Lamictal. Patient states she was seen here previously for this rash she states it did go away however returned yesterday after she increased her dosage. Patient denies any swelling of the lips tongue difficulty breathing or swallowing. Patient denies any blistering of the skin. Patient states her skin is itchy. Patient denies coughs, congestion. She states there is involvement of the hands she doesn't see lesions are they're itchy and the fever she is well. Patient denies any genital lesions. Patient denies being bit by a tick she states she has not gone outside. Patient is not taking any medication in attempt to alleviate the symptoms and has not consulted her psychiatrist in regards to previous visit with conservative possible medication allergy. Patient also admits to vaginal dryness and nightsweats. She states last week her left gland was swollen. Otherwise at this time patient remaining ROS (- ). Patient denies bruising, chest pain, SOB, IVDU, HIV. - Related Data Home Medications Medication Instructions Recorded Confirmed Aspirin EC [Ecotrin Low Dose] 81 mg PO DAILY 01/11/19 04/03/19 Atenolol [Tenormin] 25 mg PO BID 01/11/19 04/03/19 Famotidine [Pepcid] 40 mg PO BID 01/11/19 04/03/19 Pantoprazole Sodium [Protonix] 20 mg PO DAILY 01/11/19 04/03/19 Ergocalciferol (Vitamin D2) 50,000 unit PO Q14D 04/03/19 04/03/19 [Drisdol] Levothyroxine Sodium [Synthroid] 100 mcg PO DAILY 04/03/19 04/03/19 clonazePAM [KlonoPIN] 1 mg TID 04/03/19 04/03/19 lamoTRIgine [LaMICtal] See Taper PO DIRECTED 04/03/19 04/03/19 Previous Rx's Medication Instructions Recorded Ibuprofen [Motrin] 600 mg PO Q6HR PRN #30 tab 04/03/19 Ondansetron [Zofran ODT] 4 mg PO Q8HR PRN #10 tab 04/03/19 predniSONE 20 mg PO BID 5 Days #10 tab 04/20/19 Allergies Allergy/AdvReac Type Severity Reaction Status Date / Time amoxicillin Allergy Rash/Hives Verified 04/20/19 16:11 hydromorphone [From Dilaudid] Allergy Unknown Verified 04/20/19 16:11 codeine AdvReac Vomiting Verified 04/20/19 16:11 lisinopril AdvReac Unknown Verified 04/20/19 16:11 lorazepam [From Ativan] AdvReac RACING Verified 04/20/19 16:11 HEART metronidazole [From Flagyl] AdvReac Nausea & Verified 04/20/19 16:11 Vomiting paper tape Allergy Unknown Uncoded 04/20/19 16:11 Review of Systems ROS Statement: Those systems with pertinent positive or pertinent negative responses have been documented in the HPI. ROS Other: All systems not noted in ROS Statement are negative. Past Medical History Past Medical History: Diabetes Mellitus, GERD/Reflux, Hyperlipidemia, Hypertension, Seizure Disorder Additional Past Medical History / Comment(s): autoimmune hepatitis, LUPUS, UTI, pseudo-seizures History of Any Multi-Drug Resistant Organisms: None Reported Past Surgical History: Ablation, Cholecystectomy, Hysterectomy, Tubal Ligation Additional Past Surgical History / Comment(s): Cholecystectomy 2013, partial hysterectomy 2012, tubal ligation and NovaSure ablation in 2011 Past Anesthesia/Blood Transfusion Reactions: No Reported Reaction Past Psychological History: Anxiety, Depression Smoking Status: Current every day smoker Past Alcohol Use History: None Reported Past Drug Use History: None Reported - Past Family History Father Family Medical History: Hypertension Mother Family Medical History: Diabetes Mellitus Brother(s) Family Medical History: No Reported History Sister(s) Family Medical History: Cancer Son(s) Family Medical History: No Reported History Daughter(s) Family Medical History: No Reported History General Exam - General Exam Comments Initial Comments: General: The patient is awake and alert, in no distress, and does not appear acutely ill. Eye: Pupils are equal, round and reactive to light, extra-ocular movements are intact. No nystagmus. There is normal conjunctiva bilaterally. No signs of icterus. Ears, nose, mouth and throat: There are moist mucous membranes and no oral lesions. Neck: The neck is supple, there is no tenderness or JVD. Cardiovascular: There is a regular rate and rhythm. No murmur, rub or gallop is appreciated. Respiratory: Lungs are clear to auscultation, respirations are non-labored, breath sounds are equal. No wheezes, stridor, rales, or rhonchi. Gastrointestinal: Soft, non-distended, non-tender abdomen without masses or organomegaly noted. There is no rebound or guarding present. No CVA tenderness. Bowel sounds are unremarkable. Musculoskeletal: Normal ROM, no tenderness. Strength 5/5. Sensation intact. Pulses equal bilaterally 2+. Neurological: A&O x 3. CN II-XII intact, There are no obvious motor or sensory deficits. Coordination appears grossly intact. Speech is normal. Skin: Skin is warm and dry and no rashes or lesions are noted. Generalized rash raised, red, blanchable, no blistering, no petechie or purpura. Patient has no janeway lesions/nodules. Psychiatric: Cooperative, appropriate mood & affect, normal judgment. Limitations: no limitations Course Vital Signs 04/20/19 16:11 Temperature 97.8 F Pulse Rate 66 Respiratory 18 Rate Blood Pressure 149/90 O2 Sat by Pulse 96 Oximetry Medical Decision Making - Medical Decision Making 43-year-old female presenting for rash. Patient appears to be a generalized fashion examination consistent with urticaria. Resolved with Benadryl and Solu- Medrol. Lyme disease and syphilis testing pending given the involvement of the soles of the feet and palms of the hands. Patient has no oral lesions no lip swelling. There is no signs of Schmidt-Zay. Patient denies fever. There is no nuchal irritation no photophobia. No leukocytosis motor studies are unremarkable. Patient had Monospot testing previously. Uvula is midline oropharynx examination is unremarkable. No palpable anterior lymphadenopathy. Patient denies cough lungs are clear. No murmur on her examination. No LE edema. Patient appears well, I feel at this time this is a drug reaction possibly to Lamictal. I recommend contacting patient prescriber of medication to discuss alternatives and discontinuation of drug. Patient is agreeable with care plan. Patient given RX of prednisone. Discharged appearing well. Discussed case with Dr. Treadwell prior to d/c - Lab Data Result diagrams: 04/20/19 17:05 04/20/19 17:05 Lab Results 04/20/19 04/20/19 Range/Units 17:05 17:05 WBC 4.1 (3.8-10.6) k/uL RBC 4.88 (3.80-5.40) m/uL Hgb 13.7 (11.4-16.0) gm/dL Hct 40.6 (34.0-46.0) % MCV 83.2 (80.0-100.0) fL MCH 28.0 (25.0-35.0) pg MCHC 33.7 (31.0-37.0) g/dL RDW 17.0 H (11.5-15.5) % Plt Count 226 (150-450) k/uL Neutrophils % 61 % Lymphocytes % 18 % Monocytes % 10 % Eosinophils % 7 % Basophils % 1 % Neutrophils # 2.5 (1.3-7.7) k/uL Lymphocytes # 0.8 L (1.0-4.8) k/uL Monocytes # 0.4 (0-1.0) k/uL Eosinophils # 0.3 (0-0.7) k/uL Basophils # 0.1 (0-0.2) k/uL Anisocytosis Slight Sodium 139 (137-145) mmol/L Potassium 3.8 (3.5-5.1) mmol/L Chloride 107 (98-107) mmol/L Carbon Dioxide 25 (22-30) mmol/L Anion Gap 7 mmol/L BUN 6 L (7-17) mg/dL Creatinine 0.49 L (0.52-1.04) mg/dL Est GFR (CKD-EPI)AfAm >90 (>60 ml/min/1.73 sqM) Est GFR (CKD-EPI)NonAf >90 (>60 ml/min/1.73 sqM) Glucose 131 H (74-99) mg/dL Calcium 8.9 (8.4-10.2) mg/dL Total Bilirubin 0.4 (0.2-1.3) mg/dL AST 81 H (14-36) U/L ALT 57 H (9-52) U/L Alkaline Phosphatase 75 (38-126) U/L Total Protein 6.7 (6.3-8.2) g/dL Albumin 3.9 (3.5-5.0) g/dL Disposition Clinical Impression: Acute urticaria, Medication reaction, Headache Disposition: HOME SELF-CARE Condition: Good Instructions (If sedation given, give patient instructions): Allergy Testing (ED) Additional Instructions: Please use medication as discussed. Please follow-up with family doctor in the next 2 days, post commander and speak with psychiatrist in regards to possible medication reaction to lamictal. Please return to emergency room if the symptoms increase or worsen or for any other concerns. Prescriptions: predniSONE 20 mg PO BID 5 Days #10 tab Is patient prescribed a controlled substance at d/c from ED?: No Referrals: Sandip Ashley MD [Primary Care Provider] - 1-2 days Time of Disposition: 17:59
[2019-04-20] MEDS ORDERED: methylPREDNISolone SOD SUCCI 125 MG/2 ML VIAL IV STA (17:10)
[2019-04-20] MEDS ORDERED: diphenhydrAMINE 50 MG/ML 1 ML VIAL IVP STA (17:10)
[2019-04-20] MEDS ORDERED: diphenhydrAMINE 50 MG CAP PO STA (17:14)
[2019-04-20] MEDS ORDERED: methylPREDNISolone SOD SUCCI 125 MG/2 ML VIAL IM ONE (17:14)
[2019-04-20 17:17] LABS: Anisocytosis Slight; Basophils # (A) 0.1 k/uL (0-0.2); Basophils % (A) 1 %; Eosinophils # (A) 0.3 k/uL (0-0.7); Eosinophils % (A) 7 %; HCT 40.6 % (34.0-46.0); HGB 13.7 gm/dL (11.4-16.0); Lymphocytes # (A) 0.8 k/uL (1.0-4.8); Lymphocytes % (A) 18 %; MCHC 33.7 g/dL (31.0-37.0); MCV 83.2 fL (80.0-100.0); Mean Platelet Volume 7.5; Monocytes # (A) 0.4 k/uL (0-1.0); Monocytes % (A) 10 %; Neutrophils # (A) 2.5 k/uL (1.3-7.7); Neutrophils % (A) 61 %; Platelet Count 226 k/uL (150-450); RBC 4.88 m/uL (3.80-5.40); WBC 4.1 k/uL (3.8-10.6)
[2019-04-20 17:32] LABS: ALT 57 U/L (9-52); AST 81 U/L (14-36); African American GFR (CKD) >90 (>60 ml/min/1.73 sqM); Albumin 3.9 g/dL (3.5-5.0); Alkaline Phosphatase 75 U/L (38-126); Anion Gap 7 mmol/L; Blood Urea Nitrogen 6 mg/dL (7-17); Calcium 8.9 mg/dL (8.4-10.2); Carbon Dioxide 25 mmol/L (22-30); Chloride 107 mmol/L (98-107); Glucose 131 mg/dL (74-99); Potassium 3.8 mmol/L (3.5-5.1); Sodium 139 mmol/L (137-145); Total Bilirubin 0.4 mg/dL (0.2-1.3); Total Protein 6.7 g/dL (6.3-8.2)
[2019-04-24 11:53] LABS: Lyme IgG/IgM 0.06 Index
== END 2019-04-20 18:10 | disposition home or self-care (01) ==
LOC: EC 16:10
DX: L50.9 Urticaria, unspecified (principal); R51 Headache; T50.905A Adverse effect of unspecified drugs, medicaments and biological substances, initial encounter; K21.9 Gastro-esophageal reflux disease without esophagitis; I10 Essential (primary) hypertension; G40.909 Epilepsy, unspecified, not intractable, without status epilepticus; F17.200 Nicotine dependence, unspecified, uncomplicated; Z79.82 Long term (current) use of aspirin; Z79.890 Hormone replacement therapy; Z79.899 Other long term (current) drug therapy; Z88.0 Allergy status to penicillin; Z88.5 Allergy status to narcotic agent; Z88.8 Allergy status to other drugs, medicaments and biological substances; Z88.1 Allergy status to other antibiotic agents; Z91.048 Other nonmedicinal substance allergy status
CPT/HCPCS: 36415; 80053; 85025; 86618; 86780; 99283; 96372; J2930

== ENCOUNTER 2019-04-22 00:24 | Emergency (ER) | payer OTHER ==
[2019-04-22 01:08] LABS: Appearance,Urine Clear (Clear); Bilirubin,Urine Negative (Negative); Blood,Urine Negative (Negative); Color,Urine Yellow; Glucose,Urine (UA) Negative (Negative); Ketones,Urine Negative (Negative); Leukocyte Esterase,Urine Negative (Negative); Nitrite,Urine Negative (Negative); PH, Urine 6.5 (5.0-8.0); Protein,Urine Trace (Negative); Specific Gravity,Urine 1.028 (1.001-1.035)
[2019-04-22 01:34] LABS: Anisocytosis Slight; Basophils # (A) 0.1 k/uL (0-0.2); Basophils % (A) 1 %; Eosinophils # (A) 0.2 k/uL (0-0.7); Eosinophils % (A) 2 %; HCT 37.2 % (34.0-46.0); HGB 12.7 gm/dL (11.4-16.0); Lymphocytes % (A) 10 %; MCH 28.4 pg (25.0-35.0); MCHC 34.2 g/dL (31.0-37.0); MCV 83.1 fL (80.0-100.0); Mean Platelet Volume 8.8; Monocytes # (A) 0.8 k/uL (0-1.0); Monocytes % (A) 9 %; Neutrophils # (A) 7.3 k/uL (1.3-7.7); Neutrophils % (A) 77 %; RBC 4.48 m/uL (3.80-5.40); RDW 17.8 % (11.5-15.5); WBC 9.5 k/uL (3.8-10.6)
[2019-04-22 01:37] LABS: Platelet Count 110 k/uL (150-450)
--- NOTE | 2019-04-22 01:40 | ED ---
Abdominal Pain HPI - General Chief Complaint: Abdominal Pain Stated Complaint: pelvic pain Time Seen by Provider: 04/22/19 00:34 Source: patient, family Mode of arrival: ambulatory Limitations: no limitations - History of Present Illness Initial Comments: Juvenal is a obese 43-year-old female who presents to the emergency department today for a lower abdominal pressure and pain. Patient reports that pain began approximately 4 hours prior to arrival, pain is described as a pressure in her lower abdomen. Patient denies any nausea, vomiting or change in bowel or bladder habits. She reports her last bowel movement was early in the morning on Tuesday, is normal in color caliber and consistency. Patient reports that she's had a partial hysterectomy in the past, denies any concern for sexual transmitted infections denies any vaginal discharge or discomfort. When asked to localize the pain patient indicates that it's under the pannus in the supr apubic region. - Related Data Home Medications Medication Instructions Recorded Confirmed Aspirin EC [Ecotrin Low Dose] 81 mg PO DAILY 01/11/19 04/03/19 Atenolol [Tenormin] 25 mg PO BID 01/11/19 04/03/19 Famotidine [Pepcid] 40 mg PO BID 01/11/19 04/03/19 Pantoprazole Sodium [Protonix] 20 mg PO DAILY 01/11/19 04/03/19 Ergocalciferol (Vitamin D2) 50,000 unit PO Q14D 04/03/19 04/03/19 [Drisdol] Levothyroxine Sodium [Synthroid] 100 mcg PO DAILY 04/03/19 04/03/19 clonazePAM [KlonoPIN] 1 mg TID 04/03/19 04/03/19 lamoTRIgine [LaMICtal] See Taper PO DIRECTED 04/03/19 04/03/19 Previous Rx's Medication Instructions Recorded Ibuprofen [Motrin] 600 mg PO Q6HR PRN #30 tab 04/03/19 Ondansetron [Zofran ODT] 4 mg PO Q8HR PRN #10 tab 04/03/19 predniSONE 20 mg PO BID 5 Days #10 tab 04/20/19 Ibuprofen [Motrin] 800 mg PO TID #30 tab 04/22/19 Allergies Allergy/AdvReac Type Severity Reaction Status Date / Time amoxicillin Allergy Rash/Hives Verified 04/22/19 00:29 hydromorphone [From Dilaudid] Allergy Unknown Verified 04/22/19 00:29 codeine AdvReac Vomiting Verified 04/22/19 00:29 lisinopril AdvReac Unknown Verified 04/22/19 00:29 lorazepam [From Ativan] AdvReac RACING Verified 04/22/19 00:29 HEART metronidazole [From Flagyl] AdvReac Nausea & Verified 04/22/19 00:29 Vomiting paper tape Allergy Unknown Uncoded 04/22/19 00:29 Review of Systems ROS Statement: Those systems with pertinent positive or pertinent negative responses have been documented in the HPI. ROS Other: All systems not noted in ROS Statement are negative. Past Medical History Past Medical History: Diabetes Mellitus, GERD/Reflux, Hyperlipidemia, Hypertension, Seizure Disorder Additional Past Medical History / Comment(s): autoimmune hepatitis, LUPUS, UTI, pseudo-seizures History of Any Multi-Drug Resistant Organisms: None Reported Past Surgical History: Ablation, Cholecystectomy, Hysterectomy, Tubal Ligation Additional Past Surgical History / Comment(s): Cholecystectomy 2013, partial hysterectomy 2012, tubal ligation and NovaSure ablation in 2011 Past Anesthesia/Blood Transfusion Reactions: No Reported Reaction Past Psychological History: Anxiety, Depression Smoking Status: Current every day smoker Past Alcohol Use History: None Reported Past Drug Use History: None Reported - Past Family History Father Family Medical History: Hypertension Mother Family Medical History: Diabetes Mellitus Brother(s) Family Medical History: No Reported History Sister(s) Family Medical History: Cancer Son(s) Family Medical History: No Reported History Daughter(s) Family Medical History: No Reported History General Exam Limitations: no limitations Course Vital Signs 04/22/19 04/22/19 00:27 02:50 Temperature 98.1 F Pulse Rate 66 61 Respiratory 22 18 Rate Blood Pressure 153/91 132/72 O2 Sat by Pulse 96 95 Oximetry Medical Decision Making - Medical Decision Making The patient was seen and evaluated, history is obtained from the patient Patient with lower pelvic pain that was sudden in onset present throughout the afternoon, no change in bowel or bladder habits Labs and imaging were ordered Labs resulted with no significant acute abnormalities Computed tomography scan resulted with the ovarian cyst, ultrasound was then ordered which revealed a likely hemorrhagic ovarian cyst with no sign of torsion. Patient was given Toradol. Results were discussed with the patient, patient is scheduled to see a new personal injury paralegal early next month. I advised the patient that pain from ovarian cysts is usually treated adequately with Motrin. Patient does have a prescription for Motrin 600s from previous ER visit would like a refill. Given the patient's size I do feel that Motrin 800 would be appropriate as well. I will prescribe a few days of these. All questions pertaining care were answered the best of my ability return parameters were discussed patient was discharged home in stable condition. - Lab Data Result diagrams: 04/22/19 01:28 04/22/19 01:28 Lab Results 04/22/19 04/22/19 04/22/19 Range/Units 01:00 01:00 01:28 WBC (3.8-10.6) k/uL RBC (3.80-5.40) m/uL Hgb (11.4-16.0) gm/dL Hct (34.0-46.0) % MCV (80.0-100.0) fL MCH (25.0-35.0) pg MCHC (31.0-37.0) g/dL RDW (11.5-15.5) % Plt Count (150-450) k/uL Neutrophils % % Lymphocytes % % Monocytes % % Eosinophils % % Basophils % % Neutrophils # (1.3-7.7) k/uL Lymphocytes # (1.0-4.8) k/uL Monocytes # (0-1.0) k/uL Eosinophils # (0-0.7) k/uL Basophils # (0-0.2) k/uL Anisocytosis Sodium 141 (137-145) mmol/L Potassium 4.2 (3.5-5.1) mmol/L Chloride 105 (98-107) mmol/L Carbon Dioxide 27 (22-30) mmol/L Anion Gap 9 mmol/L BUN 12 (7-17) mg/dL Creatinine 0.51 L (0.52-1.04) mg/dL Est GFR (CKD-EPI)AfAm >90 (>60 ml/min/1.73 sqM) Est GFR (CKD-EPI)NonAf >90 (>60 ml/min/1.73 sqM) Glucose 160 H (74-99) mg/dL Calcium 9.4 (8.4-10.2) mg/dL Total Bilirubin 0.4 (0.2-1.3) mg/dL AST 61 H (14-36) U/L ALT 63 H (9-52) U/L Alkaline Phosphatase 71 (38-126) U/L Total Protein 7.1 (6.3-8.2) g/dL Albumin 4.2 (3.5-5.0) g/dL Amylase 37 (30-110) U/L Lipase 27 (23-300) U/L Urine Color Yellow Urine Appearance Clear (Clear) Urine pH 6.5 (5.0-8.0) Ur Specific [place] 1.028 (1.001-1.035) Urine Protein Trace H (Negative) Urine Glucose (UA) Negative (Negative) Urine Ketones Negative (Negative) Urine Blood Negative (Negative) Urine Nitrite Negative (Negative) Urine Bilirubin Negative (Negative) Urine Urobilinogen 2.0 (<2.0) mg/dL Ur Leukocyte Esterase Negative (Negative) Urine HCG, Qual Not Detected (Not Detectd) 04/22/19 Range/Units 01:28 WBC 9.5 (3.8-10.6) k/uL RBC 4.48 (3.80-5.40) m/uL Hgb 12.7 (11.4-16.0) gm/dL Hct 37.2 (34.0-46.0) % MCV 83.1 (80.0-100.0) fL MCH 28.4 (25.0-35.0) pg MCHC 34.2 (31.0-37.0) g/dL RDW 17.8 H (11.5-15.5) % Plt Count 110 L D (150-450) k/uL Neutrophils % 77 % Lymphocytes % 10 % Monocytes % 9 % Eosinophils % 2 % Basophils % 1 % Neutrophils # 7.3 (1.3-7.7) k/uL Lymphocytes # 1.0 (1.0-4.8) k/uL Monocytes # 0.8 (0-1.0) k/uL Eosinophils # 0.2 (0-0.7) k/uL Basophils # 0.1 (0-0.2) k/uL Anisocytosis Slight Sodium (137-145) mmol/L Potassium (3.5-5.1) mmol/L Chloride (98-107) mmol/L Carbon Dioxide (22-30) mmol/L Anion Gap mmol/L BUN (7-17) mg/dL Creatinine (0.52-1.04) mg/dL Est GFR (CKD-EPI)AfAm (>60 ml/min/1.73 sqM) Est GFR (CKD-EPI)NonAf (>60 ml/min/1.73 sqM) Glucose (74-99) mg/dL Calcium (8.4-10.2) mg/dL Total Bilirubin (0.2-1.3) mg/dL AST (14-36) U/L ALT (9-52) U/L Alkaline Phosphatase (38-126) U/L Total Protein (6.3-8.2) g/dL Albumin (3.5-5.0) g/dL Amylase (30-110) U/L Lipase (23-300) U/L Urine Color Urine Appearance (Clear) Urine pH (5.0-8.0) Ur Specific [place] (1.001-1.035) Urine Protein (Negative) Urine Glucose (UA) (Negative) Urine Ketones (Negative) Urine Blood (Negative) Urine Nitrite (Negative) Urine Bilirubin (Negative) Urine Urobilinogen (<2.0) mg/dL Ur Leukocyte Esterase (Negative) Urine HCG, Qual (Not Detectd) Disposition Clinical Impression: Ovarian cyst Disposition: HOME SELF-CARE Condition: Stable Instructions (If sedation given, give patient instructions): Ovarian Cyst (ED) Prescriptions: Ibuprofen [Motrin] 800 mg PO TID #30 tab Is patient prescribed a controlled substance at d/c from ED?: No Referrals: Sandip Ashley MD [Primary Care Provider] - 1-2 days
[2019-04-22 01:47] LABS: ALT 63 U/L (9-52); AST 61 U/L (14-36); African American GFR (CKD) >90 (>60 ml/min/1.73 sqM); Albumin 4.2 g/dL (3.5-5.0); Alkaline Phosphatase 71 U/L (38-126); Amylase 37 U/L (30-110); Anion Gap 9 mmol/L; Blood Urea Nitrogen 12 mg/dL (7-17); Calcium 9.4 mg/dL (8.4-10.2); Carbon Dioxide 27 mmol/L (22-30); Chloride 105 mmol/L (98-107); Glucose 160 mg/dL (74-99); Potassium 4.2 mmol/L (3.5-5.1); Sodium 141 mmol/L (137-145); Total Bilirubin 0.4 mg/dL (0.2-1.3); Total Protein 7.1 g/dL (6.3-8.2)
--- NOTE | 2019-04-22 02:32 | CT ---
EXAM: CT Abdomen and Pelvis With Intravenous Contrast CLINICAL HISTORY: ITS.REASON CT Reason: Pain, lower abdomen TECHNIQUE: Axial computed tomography images of the abdomen and pelvis with intravenous contrast. CTDI is 24.4, 18.3 mGy and DLP is 1398, 769.3 mGy- cm. This CT exam was performed using one or more of the following dose reduction techniques: automated exposure control, adjustment of the mA and/or kV according to patient size, and/or use of iterative reconstruction technique. Delayed imaging was performed. COMPARISON: CT abdomen and pelvis 02/06/2017. FINDINGS: Lung bases: Unremarkable. No mass. No consolidation. ABDOMEN: Liver: Hepatic steatosis. Gallbladder and bile ducts: Cholecystectomy. No ductal dilation. Pancreas: Unremarkable. No mass. No ductal dilation. Spleen: Unremarkable. No splenomegaly. Adrenals: Unremarkable. No mass. Kidneys and ureters: Unremarkable. No solid mass. No hydronephrosis. Stomach and bowel: Unremarkable. No obstruction. No mucosal thickening. PELVIS: Appendix: No findings to suggest acute appendicitis. Bladder: Urinary bladder is decompressed and therefore not well evaluated. Reproductive: Left adnexal 2.7 cm cystic lesion. Hysterectomy. ABDOMEN and PELVIS: Intraperitoneal space: Unremarkable. No free air. No significant fluid collection. Bones/joints: No acute fracture. No dislocation. Soft tissues: Unremarkable. Vasculature: Unremarkable. No abdominal aortic aneurysm. Lymph nodes: Unremarkable. No enlarged lymph nodes. IMPRESSION: 1. No acute abnormality. 2. Left adnexal 2.7 cm cystic lesion. This could be evaluated with pelvic ultrasound as clinically warranted. 3. Hepatic steatosis.
[2019-04-22] MEDS ORDERED: KETOROLAC 30 MG/ML 1 ML VIAL IVP STA (02:46)
[2019-04-22 02:52] VITALS: RESP 18
--- NOTE | 2019-04-22 04:15 | US ---
EXAM: US Pelvis, Transvaginal US Duplex Arterial/Venous of the Pelvis, Complete CLINICAL HISTORY: ITS.REASON US Reason: LEFT pelvic pain - cyst on CT - hx of partial hyst TECHNIQUE: Real-time transvaginal pelvic ultrasound (complete) with image documentation. Transvaginal imaging was used for better evaluation of the endometrium and adnexa. Real-time duplex ultrasound scan of the arterial and venous flow of the pelvis with color Doppler flow and spectral waveform analysis. COMPARISON: CT abdomen and pelvis 04/22/2019. FINDINGS: Uterus/cervix: Hysterectomy. Right ovary: Right ovary measures 2.6 x 1.7 x 1.8 cm. No torsion. Left ovary: Left ovary measures 3.2 x 2.2 x 2.1 cm. There is a 2.4 x 1.8 x 1.8 cm complicated left ovarian cyst. No torsion. Free fluid: No free fluid. Bladder: Empty bladder which cannot be evaluated with this probe. IMPRESSION: 1. No sonographic evidence of ovarian torsion. 2. Complicated left ovarian cyst measuring up to 2.4 cm which could represent a hemorrhagic cyst or endometrioma.
[2019-04-22 04:44] VITALS: BP 130/69; PULSE 60; TEMP 97.9
--- NOTE | 2019-04-25 05:17 | CDI ---
Dear Sharmila Patel DO: Please do addendum Physical Examination. Thank you, Nallely Loza, Sheeter Helper. If you have any questions, please contact Office Support Associate at [phone]. [facility]
== END 2019-04-22 04:45 | disposition home or self-care (01) ==
LOC: EC 00:24
DX: N83.202 Unspecified ovarian cyst, left side (principal); Z76.0 Encounter for issue of repeat prescription; K21.9 Gastro-esophageal reflux disease without esophagitis; I10 Essential (primary) hypertension; G40.909 Epilepsy, unspecified, not intractable, without status epilepticus; E66.9 Obesity, unspecified; F32.9 Major depressive disorder, single episode, unspecified; F41.9 Anxiety disorder, unspecified; F17.200 Nicotine dependence, unspecified, uncomplicated; Z88.0 Allergy status to penicillin; Z88.1 Allergy status to other antibiotic agents; Z88.5 Allergy status to narcotic agent; Z88.8 Allergy status to other drugs, medicaments and biological substances; Z91.048 Other nonmedicinal substance allergy status; Z79.82 Long term (current) use of aspirin; Z79.890 Hormone replacement therapy; Z79.899 Other long term (current) drug therapy; Z90.49 Acquired absence of other specified parts of digestive tract; Z90.711 Acquired absence of uterus with remaining cervical stump; Z98.51 Tubal ligation status; Z68.42 Body mass index [BMI] 45.0-49.9, adult
CPT/HCPCS: 99284; 96374; 36415; 80053; 82150; 83690; 85025; 81003; 81025; 93975; 76830; 74177; J1885; Q9967

== ENCOUNTER → 2019-04-25 | Outpatient (CLI) | payer OTHER ==
[2019-04-25 14:22] LABS: Anisocytosis Slight; Basophils # (A) 0.1 k/uL (0-0.2); Basophils % (A) 1 %; Eosinophils # (A) 0.1 k/uL (0-0.7); Eosinophils % (A) 1 %; HCT 44.5 % (34.0-46.0); HGB 14.4 gm/dL (11.4-16.0); Lymphocytes # (A) 1.6 k/uL (1.0-4.8); Lymphocytes % (A) 11 %; MCH 27.4 pg (25.0-35.0); MCHC 32.4 g/dL (31.0-37.0); MCV 84.6 fL (80.0-100.0); Mean Platelet Volume 7.5; Monocytes # (A) 0.8 k/uL (0-1.0); Monocytes % (A) 5 %; Neutrophils # (A) 12.2 k/uL (1.3-7.7); Neutrophils % (A) 82 %; RBC 5.26 m/uL (3.80-5.40); RDW 17.4 % (11.5-15.5)
[2019-04-25 14:25] LABS: Platelet Count 371 k/uL (150-450)
[2019-04-25 15:00] LABS: Prothrombin Time 10.5 sec (9.0-12.0)
[2019-04-25 19:53] LABS: ALT 49 U/L (8-44); AST 21 U/L (13-35); Albumin/Globulin Ratio 2.26 (1.60-3.17); Alkaline Phosphatase 85 U/L (41-126); Bilirubin, Conjugated <0.20 mg/dL (0.20-0.40); Globulin 1.9 g/dL (1.6-3.3); Total Bilirubin 0.4 mg/dL (0.2-1.2); Total Protein 6.2 g/dL (6.2-8.2)
== END | disposition home or self-care (01) ==
LOC: LABWHC1 12:28
DX: K75.4 Autoimmune hepatitis (principal)
CPT/HCPCS: 36415; 80076; 83516; 85025; 85610; 86038

== ENCOUNTER 2019-04-26 16:57 | Emergency (ER) | payer OTHER ==
[2019-04-26 17:05] VITALS: BP 126/84; PULSE 65
[2019-04-26] MEDS ORDERED: SODIUM CHLORIDE 0.9% 1,000 ML IV STA (18:00)
[2019-04-26] MEDS ORDERED: ONDANSETRON 4 MG/2 ML VIAL IVP STA (18:00)
[2019-04-26] MEDS ORDERED: ASPIRIN 81 MG PO STA (18:02)
[2019-04-26 18:42] VITALS: RESP 16
[2019-04-26 18:56] LABS: Anisocytosis Slight; Basophils # (A) 0.2 k/uL (0-0.2); Basophils % (A) 1 %; Eosinophils # (A) 0.4 k/uL (0-0.7); Eosinophils % (A) 2 %; HCT 43.4 % (34.0-46.0); HGB 14.3 gm/dL (11.4-16.0); Lymphocytes # (A) 3.7 k/uL (1.0-4.8); Lymphocytes % (A) 20 %; MCV 84.9 fL (80.0-100.0); Mean Platelet Volume 6.8; Monocytes # (A) 1.7 k/uL (0-1.0); Monocytes % (A) 9 %; Neutrophils # (A) 12.3 k/uL (1.3-7.7); Neutrophils % (A) 66 %; Platelet Count 318 k/uL (150-450); RBC 5.11 m/uL (3.80-5.40); RDW 16.7 % (11.5-15.5); WBC 18.6 k/uL (3.8-10.6)
[2019-04-26 19:00] LABS: INR 0.9 (<1.2); Prothrombin Time 10.2 sec (9.0-12.0)
[2019-04-26 19:03] LABS: ALT 30 U/L (9-52); AST 23 U/L (14-36); African American GFR (CKD) >90 (>60 ml/min/1.73 sqM); Albumin 3.9 g/dL (3.5-5.0); Alkaline Phosphatase 76 U/L (38-126); Anion Gap 7 mmol/L; Blood Urea Nitrogen 18 mg/dL (7-17); Calcium 9.1 mg/dL (8.4-10.2); Carbon Dioxide 28 mmol/L (22-30); Chloride 105 mmol/L (98-107); Glucose 108 mg/dL (74-99); Magnesium 2.2 mg/dL (1.6-2.3); Potassium 3.9 mmol/L (3.5-5.1); Sodium 140 mmol/L (137-145); Total Bilirubin 0.3 mg/dL (0.2-1.3); Total Protein 6.6 g/dL (6.3-8.2)
--- NOTE | 2019-04-26 19:27 | ED ---
Abdominal Pain HPI - General Chief Complaint: Abdominal Pain Stated Complaint: Side Pain & Chest Pain Time Seen by Provider: 04/26/19 17:05 Source: patient Mode of arrival: ambulatory Limitations: no limitations - History of Present Illness Initial Comments: The patient is a 43-year-old female with past medical history of autoimmune hepatitis who presents to the emergency room with complaint of chest pain and right upper quadrant abdominal pain. States the chest pain started today. It is described as a left sided chest pain with radiation into her left jaw. Denies any numbness or tingling in her upper extremity. Denies ripping or tearing sensation to her back. She has no previous cardiac history. Denies any associated shortness of breath. No lower extremity edema. No unilateral calf pain or swelling. Denies a history of DVTs or PEs. No family history of blood clotting disorders. No recent travel. Denies a cough, fevers or chills or hemoptysis. States that she has had a stress test on several years ago. In addition she reports right upper quadrant abdominal pain. States similar when she has exacerbation of her autoimmune hepatitis. She is not currently on any therapy she states that Dr. Velasco did remove all of her medications. States she's not been on them for several months. She's had decreased appetite with inability to tolerate many foods. She did follow up with Dr. Alex is her GI physician. States that she had blood work done yesterday for which she checked her medical record and found out that they were abnormal. Because that she did call Dr. Ashley's office. She informs me that Dr. Ashley instructed her to come to the emergency department for evaluation. Patient has recently been on steroids because of a rash. Denies any recent treatment for her autoimmune hepatitis. She denies any associated diarrhea, constipation, melanotic stools or hematochezia. No changes in her urination to include dysuria, hematuria or difficulty voiding. There are no alleviating, precipitating or modifying fac tors - Related Data Home Medications Medication Instructions Recorded Confirmed Atenolol [Tenormin] 25 mg PO BID 01/11/19 04/26/19 Famotidine [Pepcid] 40 mg PO DAILY 01/11/19 04/26/19 Pantoprazole Sodium [Protonix] 20 mg PO DAILY 01/11/19 04/26/19 Ergocalciferol (Vitamin D2) 50,000 unit PO Q14D 04/03/19 04/26/19 [Drisdol] Levothyroxine Sodium [Synthroid] 100 mcg PO DAILY 04/03/19 04/26/19 clonazePAM [KlonoPIN] 1 mg PO TID 04/03/19 04/26/19 lamoTRIgine [LaMICtal] 100 mg PO DAILY 04/26/19 04/26/19 Allergies Allergy/AdvReac Type Severity Reaction Status Date / Time acetaminophen [From Tylenol] Allergy Nausea & Verified 04/26/19 18:37 Vomiting amoxicillin Allergy Rash/Hives Verified 04/26/19 18:07 hydromorphone [From Dilaudid] Allergy Unknown Verified 04/26/19 18:07 codeine AdvReac Vomiting Verified 04/26/19 18:07 lisinopril AdvReac Unknown Verified 04/26/19 18:07 lorazepam [From Ativan] AdvReac RACING Verified 04/26/19 18:07 HEART metronidazole [From Flagyl] AdvReac Nausea & Verified 04/26/19 18:07 Vomiting paper tape Allergy Unknown Uncoded 04/26/19 17:05 Review of Systems ROS Statement: Those systems with pertinent positive or pertinent negative responses have been documented in the HPI. ROS Other: All systems not noted in ROS Statement are negative. Past Medical History Past Medical History: Diabetes Mellitus, GERD/Reflux, Hyperlipidemia, Hyp ertension, Seizure Disorder Additional Past Medical History / Comment(s): autoimmune hepatitis, LUPUS, UTI, pseudo-seizures History of Any Multi-Drug Resistant Organisms: None Reported Past Surgical History: Ablation, Cholecystectomy, Hysterectomy, Tubal Ligation Additional Past Surgical History / Comment(s): Cholecystectomy 2013, partial hysterectomy 2012, tubal ligation and NovaSure ablation in 2011 Past Anesthesia/Blood Transfusion Reactions: No Reported Reaction Past Psychological History: Anxiety, Depression Smoking Status: Current every day smoker Past Alcohol Use History: None Reported Past Drug Use History: None Reported - Past Family History Father Family Medical History: Hypertension Mother Family Medical History: Diabetes Mellitus Brother(s) Family Medical History: No Reported History Sister(s) Family Medical History: Cancer Son(s) Family Medical History: No Reported History Daughter(s) Family Medical History: No Reported History General Exam Limitations: no limitations General appearance: alert, in no apparent distress Head exam: Present: atraumatic, normocephalic, normal inspection Eye exam: Present: normal appearance, PERRL, EOMI. Absent: scleral icterus, conjunctival injection, periorbital swelling ENT exam: Present: normal exam, mucous membranes moist Neck exam: Present: normal inspection. Absent: tenderness, meningismus, lymphadenopathy Respiratory exam: Present: normal lung sounds bilaterally. Absent: respiratory distress, wheezes, rales, rhonchi, stridor Cardiovascular Exam: Present: regular rate, normal rhythm, normal heart sounds. Absent: systolic murmur, diastolic murmur, rubs, gallop, clicks GI/Abdominal exam: Present: soft, normal bowel sounds. Absent: distended, ten derness, guarding, rebound, rigid Extremities exam: Present: normal inspection, full ROM, normal capillary refill. Absent: tenderness, pedal edema, joint swelling, calf tenderness Back exam: Present: normal inspection Neurological exam: Present: alert, oriented X3, CN II-XII intact Psychiatric exam: Present: normal affect, normal mood Skin exam: Present: warm, dry, intact, normal color. Absent: rash Course Vital Signs 04/26/19 04/26/19 04/26/19 17:03 18:40 20:00 Temperature 98.4 F 98.1 F Pulse Rate 65 Respiratory 18 16 Rate Blood Pressure 126/84 O2 Sat by Pulse 96 Oximetry 04/26/19 21:34 Temperature Pulse Rate Respiratory 16 Rate Blood Pressure O2 Sat by Pulse Oximetry Medical Decision Making - Medical Decision Making Upon arrival the patient is placed into room 18. She is hooked up to continuous pulse ox and cardiac monitoring. A 12-lead EKG is performed on the patient which demonstrates no acute findings. Peripheral IV is established. She is given 15 mg of Toradol IV for pain control. I did recommend laboratory studies. I also recommended a rate upper quadrant ultrasound and a chest x-ray. Upon return results her blood work is notable for white blood cell count of 18.6. The remainder of her laboratory studies are unremarkable. I did review the patient's blood work from yesterday which does reveal an elevated antimitochondrial antibody lab test. I did recommend admission to the hospital in order to continue to trend the patient's troponins as well as for her to have evaluation by GI. The patient refused stating that she would rather follow up in office. I did call discuss the case with Dr. Ashley whose recommends that she follow up with her GI doctor. I did perform a second troponin on the patient's which does result and is negative. I informed the patient that I do not want to put her on any additional steroids as she recently was on steroids and has a history of steroid-induced hyperglycemia. The patient did agree to this treatment plan. She'll be discharged home. She will need to see cardiology for full cardiac workup. I did provide her with information for the [facility]. The patient has any new or worsening symptoms she should return to the emergency room. The patient was in agreement with the treatment plan and she was discharged home in stable condition - Differential Diagnosis acute abd pain, hx autoimmune hepatitis, acute leukocytosis - Lab Data Result diagrams: 04/26/19 18:30 04/26/19 18:30 Lab Results 04/26/19 04/26/19 04/26/19 Range/Units 18:30 18:30 18:30 WBC 18.6 H (3.8-10.6) k/uL RBC 5.11 (3.80-5.40) m/uL Hgb 14.3 (11.4-16.0) gm/dL Hct 43.4 (34.0-46.0) % MCV 84.9 (80.0-100.0) fL MCH 28.0 (25.0-35.0) pg MCHC 33.0 (31.0-37.0) g/dL RDW 16.7 H (11.5-15.5) % Plt Count 318 (150-450) k/uL Neutrophils % 66 % Lymphocytes % 20 % Monocytes % 9 % Eosinophils % 2 % Basophils % 1 % Neutrophils # 12.3 H (1.3-7.7) k/uL Lymphocytes # 3.7 (1.0-4.8) k/uL Monocytes # 1.7 H (0-1.0) k/uL Eosinophils # 0.4 (0-0.7) k/uL Basophils # 0.2 (0-0.2) k/uL Anisocytosis Slight PT (9.0-12.0) sec INR (<1.2) APTT (22.0-30.0) sec Sodium 140 (137-145) mmol/L Potassium 3.9 (3.5-5.1) mmol/L Chloride 105 (98-107) mmol/L Carbon Dioxide 28 (22-30) mmol/L Anion Gap 7 mmol/L BUN 18 H (7-17) mg/dL Creatinine 0.58 (0.52-1.04) mg/dL Est GFR (CKD-EPI)AfAm >90 (>60 ml/min/1.73 sqM) Est GFR (CKD-EPI)NonAf >90 (>60 ml/min/1.73 sqM) Glucose 108 H (74-99) mg/dL Plasma Lactic Acid [place] 1.4 (0.7-2.0) mmol/L Calcium 9.1 (8.4-10.2) mg/dL Magnesium 2.2 (1.6-2.3) mg/dL Total Bilirubin 0.3 (0.2-1.3) mg/dL AST 23 (14-36) U/L ALT 30 (9-52) U/L Alkaline Phosphatase 76 (38-126) U/L Troponin I (0.000-0.034) ng/mL Total Protein 6.6 (6.3-8.2) g/dL Albumin 3.9 (3.5-5.0) g/dL Lipase 54 (23-300) U/L Urine Color Urine Appearance (Clear) Urine pH (5.0-8.0) Ur Specific [place] (1.001-1.035) Urine Protein (Negative) Urine Glucose (UA) (Negative) Urine Ketones (Negative) Urine Blood (Negative) Urine Nitrite (Negative) Urine Bilirubin (Negative) Urine Urobilinogen (<2.0) mg/dL Ur Leukocyte Esterase (Negative) Urine RBC (0-5) /hpf Urine WBC (0-5) /hpf Ur Squamous Epith Cells (0-4) /hpf Urine Bacteria (None) /hpf Urine Mucus (None) /hpf 04/26/19 04/26/19 04/26/19 Range/Units 18:30 18:30 20:35 WBC (3.8-10.6) k/uL RBC (3.80-5.40) m/uL Hgb (11.4-16.0) gm/dL Hct (34.0-46.0) % MCV (80.0-100.0) fL MCH (25.0-35.0) pg MCHC (31.0-37.0) g/dL RDW (11.5-15.5) % Plt Count (150-450) k/uL Neutrophils % % Lymphocytes % % Monocytes % % Eosinophils % % Basophils % % Neutrophils # (1.3-7.7) k/uL Lymphocytes # (1.0-4.8) k/uL Monocytes # (0-1.0) k/uL Eosinophils # (0-0.7) k/uL Basophils # (0-0.2) k/uL Anisocytosis PT 10.2 (9.0-12.0) sec INR 0.9 (<1.2) APTT 22.0 (22.0-30.0) sec Sodium (137-145) mmol/L Potassium (3.5-5.1) mmol/L Chloride (98-107) mmol/L Carbon Dioxide (22-30) mmol/L Anion Gap mmol/L BUN (7-17) mg/dL Creatinine (0.52-1.04) mg/dL Est GFR (CKD-EPI)AfAm (>60 ml/min/1.73 sqM) Est GFR (CKD-EPI)NonAf (>60 ml/min/1.73 sqM) Glucose (74-99) mg/dL Plasma Lactic Acid [place] (0.7-2.0) mmol/L Calcium (8.4-10.2) mg/dL Magnesium (1.6-2.3) mg/dL Total Bilirubin (0.2-1.3) mg/dL AST (14-36) U/L ALT (9-52) U/L Alkaline Phosphatase (38-126) U/L Troponin I <0.012 (0.000-0.034) ng/mL Total Protein (6.3-8.2) g/dL Albumin (3.5-5.0) g/dL Lipase (23-300) U/L Urine Color Yellow Urine Appearance Cloudy H (Clear) Urine pH 6.0 (5.0-8.0) Ur Specific [place] 1.031 (1.001-1.035) Urine Protein 1+ H (Negative) Urine Glucose (UA) Negative (Negative) Urine Ketones Negative (Negative) Urine Blood Negative (Negative) Urine Nitrite Negative (Negative) Urine Bilirubin Negative (Negative) Urine Urobilinogen 3.0 (<2.0) mg/dL Ur Leukocyte Esterase Trace H (Negative) Urine RBC 10 H (0-5) /hpf Urine WBC 2 (0-5) /hpf Ur Squamous Epith Cells 23 H (0-4) /hpf Urine Bacteria Moderate H (None) /hpf Urine Mucus Many H (None) /hpf 04/26/19 Range/Units 21:30 WBC (3.8-10.6) k/uL RBC (3.80-5.40) m/uL Hgb (11.4-16.0) gm/dL Hct (34.0-46.0) % MCV (80.0-100.0) fL MCH (25.0-35.0) pg MCHC (31.0-37.0) g/dL RDW (11.5-15.5) % Plt Count (150-450) k/uL Neutrophils % % Lymphocytes % % Monocytes % % Eosinophils % % Basophils % % Neutrophils # (1.3-7.7) k/uL Lymphocytes # (1.0-4.8) k/uL Monocytes # (0-1.0) k/uL Eosinophils # (0-0.7) k/uL Basophils # (0-0.2) k/uL Anisocytosis PT (9.0-12.0) sec INR (<1.2) APTT (22.0-30.0) sec Sodium (137-145) mmol/L Potassium (3.5-5.1) mmol/L Chloride (98-107) mmol/L Carbon Dioxide (22-30) mmol/L Anion Gap mmol/L BUN (7-17) mg/dL Creatinine (0.52-1.04) mg/dL Est GFR (CKD-EPI)AfAm (>60 ml/min/1.73 sqM) Est GFR (CKD-EPI)NonAf (>60 ml/min/1.73 sqM) Glucose (74-99) mg/dL Plasma Lactic Acid [place] (0.7-2.0) mmol/L Calcium (8.4-10.2) mg/dL Magnesium (1.6-2.3) mg/dL Total Bilirubin (0.2-1.3) mg/dL AST (14-36) U/L ALT (9-52) U/L Alkaline Phosphatase (38-126) U/L Troponin I <0.012 (0.000-0.034) ng/mL Total Protein (6.3-8.2) g/dL Albumin (3.5-5.0) g/dL Lipase (23-300) U/L Urine Color Urine Appearance (Clear) Urine pH (5.0-8.0) Ur Specific [place] (1.001-1.035) Urine Protein (Negative) Urine Glucose (UA) (Negative) Urine Ketones (Negative) Urine Blood (Negative) Urine Nitrite (Negative) Urine Bilirubin (Negative) Urine Urobilinogen (<2.0) mg/dL Ur Leukocyte Esterase (Negative) Urine RBC (0-5) /hpf Urine WBC (0-5) /hpf Ur Squamous Epith Cells (0-4) /hpf Urine Bacteria (None) /hpf Urine Mucus (None) /hpf - EKG Data EKG Comments: EKG demonstrates a sinus bradycardia with a ventricular rate of 56. MO interval 142. QRS 86. QTC 418. There are no acute ST segment elevations or depressions concerning for ischemic changes Disposition Clinical Impression: Chest pain, Right upper quadrant abdominal pain Disposition: HOME SELF-CARE Condition: Stable Instructions (If sedation given, give patient instructions): Chest Pain (ED) Additional Instructions: Please follow-up with Dr. Ashley within 2-4 days. Return to emergency department for any new or worsening symptoms. You need to call your GI doctor tomorrow to discuss your abnormal labs. I also recommend you follow up with the [facility] regarding your chest pain. You'll need a full cardiac workup Is patient prescribed a controlled substance at d/c from ED?: No Referrals: Sandip Ashley MD [Primary Care Provider] - 1-2 days Time of Disposition: 21:21
--- NOTE | 2019-04-26 19:33 | US ---
Right upper quadrant ultrasound. History pain. Comparison none. FINDINGS: Liver shows no focal defect. There is no sign of ascites. Liver measures 16 cm in length. The right k idney measures 12 x 5.5 cm. There is no hydronephrosis. There are no dilated ducts. Common bile duct is obscured somewhat by bowel gas. Intrahepatic bile ducts are not dilated. Gallbladder is not seen. IMPRESSION: Negative limited right upper quadrant abdominal sonogram.
--- NOTE | 2019-04-26 19:45 | XR ---
EXAMINATION TYPE: XR chest 2V DATE OF EXAM: 04/26/2019 COMPARISON: 01/11/2019 HISTORY: Chest pain TECHNIQUE: Frontal and lateral views of the chest are obtained. FINDINGS: Heart and mediastinum are normal. Lungs are clear. Diaphragm is normal. Bony thorax appear s normal. IMPRESSION: Normal chest. No change.
[2019-04-26] MEDS ORDERED: KETOROLAC 30 MG/ML 1 ML VIAL IVP STA (20:23)
[2019-04-26 20:33] VITALS: TEMP 98.1
[2019-04-26 20:45] LABS: Appearance,Urine Cloudy (Clear); Bacteria,Urine Moderate /hpf; Bilirubin,Urine Negative (Negative); Blood,Urine Negative (Negative); Color,Urine Yellow; Glucose,Urine (UA) Negative (Negative); Ketones,Urine Negative (Negative); Leukocyte Esterase,Urine Trace (Negative); Mucus,Urine Many /hpf; Nitrite,Urine Negative (Negative); Protein,Urine 1+ (Negative); RBC,Urine 10 /hpf (0-5); Specific Gravity,Urine 1.031 (1.001-1.035); Squamous Epithelial Cell,Urine 23 /hpf (0-4); WBC,Urine 2 /hpf (0-5)
== END 2019-04-26 21:30 | disposition home or self-care (01) ==
LOC: EC 16:57
DX: R10.11 Right upper quadrant pain (principal); R07.9 Chest pain, unspecified; R76.0 Raised antibody titer; R68.84 Jaw pain; R63.8 Other symptoms and signs concerning food and fluid intake; K21.9 Gastro-esophageal reflux disease without esophagitis; I10 Essential (primary) hypertension; G40.909 Epilepsy, unspecified, not intractable, without status epilepticus; F32.9 Major depressive disorder, single episode, unspecified; F41.9 Anxiety disorder, unspecified; F17.200 Nicotine dependence, unspecified, uncomplicated; Z88.0 Allergy status to penicillin; Z88.1 Allergy status to other antibiotic agents; Z88.5 Allergy status to narcotic agent; Z88.6 Allergy status to analgesic agent; Z88.8 Allergy status to other drugs, medicaments and biological substances; Z91.048 Other nonmedicinal substance allergy status; Z79.890 Hormone replacement therapy; Z79.899 Other long term (current) drug therapy; Z87.19 Personal history of other diseases of the digestive system; Z90.49 Acquired absence of other specified parts of digestive tract; Z82.49 Family history of ischemic heart disease and other diseases of the circulatory system; Z53.29 Procedure and treatment not carried out because of patient's decision for other reasons
CPT/HCPCS: 99284; 96374; 96375; 96361 ×2; 36415; 93005; 80053; 83605; 83690; 83735; 84484; 85025; 85610; 85730; 81001; 71046; 76705; J2405; J1885

== ENCOUNTER 2019-05-18 12:47 | Observation (INO) | payer OTHER ==
[2019-05-18] MEDS ORDERED: ASPIRIN 81 MG PO STA (13:16)
--- NOTE | 2019-05-18 13:19 | ED ---
General Adult HPI - General Chief complaint: Chest Pain Stated complaint: chest pain, lt sided numbness Time Seen by Provider: 05/18/19 12:53 Source: patient Mode of arrival: ambulatory Limitations: no limitations - History of Present Illness Initial comments: Dictation was produced using Flud dictation software. please excuse any gr ammatical, word or spelling errors. Chief Complaint: 43-year-old female with past medical history of GERD, fibromyalgia, hypertension seizure disorder presents with chest pain and paresthesias to the arm and left lower extremity and left lower extremity pain. History of Present Illness: Patient's 43-year-old female presents today with chest pain and left-sided paresthesias. Patient denies any numbness. She states that she does have a tingling sensation. She describes the pain as a heaviness to her anterior chest. Denies any exacerbating or mitigating factors. She does complain of some mild nausea. No diaphoresis. Patient has any cardiac history. Patient is regular tobacco user. The ROS documented in this emergency department record has been reviewed and confirmed by me. Those systems with pertinent positive or negative responses have been documented in the HPI. All other systems are other negative and/or noncontributory. PHYSICAL EXAM: General Impression: Alert and oriented x3, not in acute distress HEENT: Normocephalic atraumatic, extra-ocular movements intact, pupils equal and reactive to light bilaterally, mucous membranes moist. Cardiovascular: Heart regular rate and rhythm, S1&S2 audible, no murmurs, rubs or gallops Chest: Bilateral lung wheezing Abdomen: Bowel sounds present, abdomen soft, non-tender, non-distended, no organomegaly Musculoskeletal: Pulses present and equal in all extremities, no peripheral edema Motor: no focal deficits noted Neurological: CN II-XII grossly intact, no focal motor or sensory deficits noted Skin: Intact with no visualized rashes Psych: Normal affect and mood ED course: 43-year-old female with chief complaint of chest pain, dyspnea and left-sided paresthesias and left flexion be symptoms. Vital signs upon arrival are within acceptable limits. Patient's well-appearing at bedside. She does have some discrepancy with girth of the left leg compared to the right. Patient has a history of deep venous thrombosis. Patient does not appear to be tachypneic. She is not hypoxic.Laboratory evaluation obtained. CBC unremarkable. Coag panel negative. D-dimer is negative. Metabolic panel is negative. Cardiac enzymes negative. Chest x-ray is nonacute. Patient's clinical presentation consistent with atypical chest pain with typical features. She is given aspirin. She is well-appearing at this time. Patient be admitted for serial troponins and cardiology consultation. She is understandable and agreeable with plan. EKG interpretation: Ventricular rate 61, normal sinus rhythm, IN interval 164, care is 84, QTC 426. No IN prolongation, no QTC prolongation, no ST or T-wave changes noted. Overall, this EKG is unremarkable - Related Data Home Medications Medication Instructions Recorded Confirmed Atenolol [Tenormin] 50 mg PO BID 01/11/19 05/18/19 Famotidine [Pepcid] 40 mg PO DAILY 01/11/19 05/18/19 Pantoprazole Sodium [Protonix] 20 mg PO DAILY 01/11/19 05/18/19 Ergocalciferol (Vitamin D2) 50,000 unit PO Q14D 04/03/19 05/18/19 [Drisdol] Levothyroxine Sodium [Synthroid] 100 mcg PO DAILY 04/03/19 05/18/19 clonazePAM [KlonoPIN] 1 mg PO TID 04/03/19 05/18/19 Paliperidone [Invega] 3 mg PO HS 05/09/19 05/18/19 Allergies Allergy/AdvReac Type Severity Reaction Status Date / Time amoxicillin Allergy Rash/Hives Verified 05/18/19 13:51 lorazepam [From Ativan] Allergy RACING Verified 05/18/19 13:51 HEART acetaminophen [From Tylenol] AdvReac Nausea & Verified 05/18/19 13:51 Vomiting codeine AdvReac Vomiting,brunner Verified 05/18/19 13:51 llucination s hydromorphone [From Dilaudid] AdvReac hallucinati Verified 05/18/19 13:51 ons,vomitin g lamotrigine [From Lamictal] AdvReac Ben Verified 05/18/19 13:51 Zay's Syndrome lisinopril AdvReac Anaphylaxis Verified 05/18/19 13:51 metronidazole [From Flagyl] AdvReac Nausea & Verified 05/18/19 13:51 Vomiting,rash paper tape Allergy Rash/Hives Uncoded 05/18/19 13:51 Review of Systems ROS Statement: Those systems with pertinent positive or pertinent negative responses have been documented in the HPI. ROS Other: All systems not noted in ROS Statement are negative. Past Medical History Past Medical History: GERD/Reflux, Hyperlipidemia, Hypertension, Seizure Disorder Additional Past Medical History / Comment(s): "stomach and bowel issues",steroids Apr 2019,autoimmune hepatitis,Hx UTI, pseudo-seizures History of Any Multi-Drug Resistant Organisms: None Reported Past Surgical History: Cholecystectomy, Hysterectomy, Tubal Ligation, Uterine Ablation Additional Past Surgical History / Comment(s): Cholecystectomy 2013, partial hysterectomy 2012, tubal ligation and NovaSure ablation in 2011 Past Anesthesia/Blood Transfusion Reactions: No Reported Reaction Past Psychological History: Anxiety, Depression Smoking Status: Current every day smoker Past Alcohol Use History: None Reported Past Drug Use History: None Reported - Past Family History Father Family Medical History: Hypertension Mother Family Medical History: Diabetes Mellitus Brother(s) Family Medical History: No Reported History Sister(s) Family Medical History: Cancer Son(s) Family Medical History: No Reported History Daughter(s) Family Medical History: No Reported History General Exam Limitations: no limitations Course Vital Signs 05/18/19 05/18/19 05/18/19 12:48 13:52 14:30 Temperature 97.4 F L Pulse Rate 67 66 65 Respiratory 18 18 18 Rate Blood Pressure 132/89 136/88 136/97 O2 Sat by Pulse 99 96 96 Oximetry Medical Decision Making - Lab Data Result diagrams: 05/18/19 13:35 05/18/19 13:35 Lab Results 05/18/19 05/18/19 05/18/19 Range/Units 13:35 13:35 13:35 WBC 10.6 (3.8-10.6) k/uL RBC 4.98 (3.80-5.40) m/uL Hgb 14.3 (11.4-16.0) gm/dL Hct 42.0 (34.0-46.0) % MCV 84.4 (80.0-100.0) fL MCH 28.7 (25.0-35.0) pg MCHC 34.0 (31.0-37.0) g/dL RDW 17.1 H (11.5-15.5) % Plt Count 353 (150-450) k/uL Neutrophils % 73 % Lymphocytes % 16 % Monocytes % 6 % Eosinophils % 3 % Basophils % 1 % Neutrophils # 7.7 (1.3-7.7) k/uL Lymphocytes # 1.7 (1.0-4.8) k/uL Monocytes # 0.6 (0-1.0) k/uL Eosinophils # 0.3 (0-0.7) k/uL Basophils # 0.1 (0-0.2) k/uL Anisocytosis Slight PT 10.2 (9.0-12.0) sec INR 0.9 (<1.2) APTT 24.7 (22.0-30.0) sec D-Dimer 0.31 (<0.60) mg/L FEU Sodium 140 (137-145) mmol/L Potassium 4.2 (3.5-5.1) mmol/L Chloride 107 (98-107) mmol/L Carbon Dioxide 24 (22-30) mmol/L Anion Gap 9 mmol/L BUN 7 (7-17) mg/dL Creatinine 0.51 L (0.52-1.04) mg/dL Est GFR (CKD-EPI)AfAm >90 (>60 ml/min/1.73 sqM) Est GFR (CKD-EPI)NonAf >90 (>60 ml/min/1.73 sqM) Glucose 111 H (74-99) mg/dL Calcium 9.3 (8.4-10.2) mg/dL Magnesium 2.0 (1.6-2.3) mg/dL Total Bilirubin 0.3 (0.2-1.3) mg/dL AST 29 (14-36) U/L ALT 23 (9-52) U/L Alkaline Phosphatase 80 (38-126) U/L Troponin I (0.000-0.034) ng/mL Total Protein 6.7 (6.3-8.2) g/dL Albumin 3.9 (3.5-5.0) g/dL 05/18/19 Range/Units 13:35 WBC (3.8-10.6) k/uL RBC (3.80-5.40) m/uL Hgb (11.4-16.0) gm/dL Hct (34.0-46.0) % MCV (80.0-100.0) fL MCH (25.0-35.0) pg MCHC (31.0-37.0) g/dL RDW (11.5-15.5) % Plt Count (150-450) k/uL Neutrophils % % Lymphocytes % % Monocytes % % Eosinophils % % Basophils % % Neutrophils # (1.3-7.7) k/uL Lymphocytes # (1.0-4.8) k/uL Monocytes # (0-1.0) k/uL Eosinophils # (0-0.7) k/uL Basophils # (0-0.2) k/uL Anisocytosis PT (9.0-12.0) sec INR (<1.2) APTT (22.0-30.0) sec D-Dimer (<0.60) mg/L FEU Sodium (137-145) mmol/L Potassium (3.5-5.1) mmol/L Chloride (98-107) mmol/L Carbon Dioxide (22-30) mmol/L Anion Gap mmol/L BUN (7-17) mg/dL Creatinine (0.52-1.04) mg/dL Est GFR (CKD-EPI)AfAm (>60 ml/min/1.73 sqM) Est GFR (CKD-EPI)NonAf (>60 ml/min/1.73 sqM) Glucose (74-99) mg/dL Calcium (8.4-10.2) mg/dL Magnesium (1.6-2.3) mg/dL Total Bilirubin (0.2-1.3) mg/dL AST (14-36) U/L ALT (9-52) U/L Alkaline Phosphatase (38-126) U/L Troponin I <0.012 (0.000-0.034) ng/mL Total Protein (6.3-8.2) g/dL Albumin (3.5-5.0) g/dL Disposition Clinical Impression: Chest pain Disposition: ADMITTED IP TO THIS HOSP Condition: Fair Referrals: Sandip Ashley MD [Primary Care Provider] - 1-2 days Decision Time: 15:00
[2019-05-18 13:58] LABS: Anisocytosis Slight; Basophils # (A) 0.1 k/uL (0-0.2); Basophils % (A) 1 %; Eosinophils # (A) 0.3 k/uL (0-0.7); Eosinophils % (A) 3 %; HGB 14.3 gm/dL (11.4-16.0); Lymphocytes # (A) 1.7 k/uL (1.0-4.8); Lymphocytes % (A) 16 %; MCH 28.7 pg (25.0-35.0); MCV 84.4 fL (80.0-100.0); Mean Platelet Volume 7.2; Monocytes # (A) 0.6 k/uL (0-1.0); Monocytes % (A) 6 %; Neutrophils # (A) 7.7 k/uL (1.3-7.7); Neutrophils % (A) 73 %; Platelet Count 353 k/uL (150-450); RBC 4.98 m/uL (3.80-5.40); RDW 17.1 % (11.5-15.5); WBC 10.6 k/uL (3.8-10.6)
[2019-05-18 14:12] LABS: D-Dimer 0.31 mg/L FEU (<0.60); INR 0.9 (<1.2); Partial Thromboplastin Time 24.7 sec (22.0-30.0); Prothrombin Time 10.2 sec (9.0-12.0)
[2019-05-18 14:13] LABS: ALT 23 U/L (9-52); AST 29 U/L (14-36); African American GFR (CKD) >90 (>60 ml/min/1.73 sqM); Albumin 3.9 g/dL (3.5-5.0); Alkaline Phosphatase 80 U/L (38-126); Anion Gap 9 mmol/L; Blood Urea Nitrogen 7 mg/dL (7-17); Calcium 9.3 mg/dL (8.4-10.2); Carbon Dioxide 24 mmol/L (22-30); Chloride 107 mmol/L (98-107); Glucose 111 mg/dL (74-99); Potassium 4.2 mmol/L (3.5-5.1); Sodium 140 mmol/L (137-145); Total Bilirubin 0.3 mg/dL (0.2-1.3); Total Protein 6.7 g/dL (6.3-8.2)
--- NOTE | 2019-05-18 14:19 | XR ---
EXAMINATION TYPE: XR chest 2V DATE OF EXAM: 05/18/2019 COMPARISON: Chest x-ray from April 26, 2019. HISTORY: Chest pain and left-sided numbness. TECHNIQUE: Frontal and lateral views of the chest are obtained. FINDINGS: Overlying EKG leads are now present. There is no focal air space opacity, pleural effusion, or pneumothorax seen. The cardiac silhouette size is within normal limits. The osseous structures are intact. IMPRESSION: No acute cardiopulmonary process. No significant change from prior.
[2019-05-18] MEDS ORDERED: NITROGLYCERIN SL TABS 0.4 MG TAB SUBLINGUAL PRN (14:46)
[2019-05-18] MEDS ORDERED: KETOROLAC 30 MG/ML 1 ML VIAL IVP STA (15:52)
[2019-05-18] MEDS ORDERED: ONDANSETRON 4 MG/2 ML VIAL IVP STA (16:02)
[2019-05-18 16:06] VITALS: BMI 45.1
[2019-05-18] MEDS ORDERED: FAMOTIDINE 20 MG TAB PO SCH (18:00)
[2019-05-18] MEDS: MORPHINE SULFATE 2 MG/ML SYRINGE IVP PRN ×2 (18:28→23:39)
[2019-05-18] MEDS ORDERED: ATENOLOL 50 MG TAB PO SCH (21:00)
[2019-05-18] MEDS ORDERED: PALIPERIDONE 3 MG TAB.ER.24 PO SCH (21:00)
[2019-05-18] MEDS: clonazePAM 1 MG TAB PO SCH (21:20)
[2019-05-19] MEDS ORDERED: LEVOTHYROXINE 100 MCG TAB PO SCH (06:30)
[2019-05-19 07:03] LABS: Cholesterol 154 mg/dL (<200); HDL Cholesterol 34 mg/dL (40-60); LDL Cholesterol,Calculated 95 mg/dL (0-99); Triglycerides 123 mg/dL (<150)
[2019-05-19] MEDS ORDERED: PANTOPRAZOLE 40 MG TABLET PO SCH (07:30)
[2019-05-19] MEDS ORDERED: ASPIRIN 325 MG TAB PO SCH (09:00)
[2019-05-19 09:13] VITALS: RESP 16
[2019-05-19] MEDS: clonazePAM 1 MG TAB PO SCH (09:45)
[2019-05-19] MEDS: MORPHINE SULFATE 2 MG/ML SYRINGE IVP PRN (09:53)
[2019-05-19 12:12] VITALS: BP 109/70; PULSE 60; TEMP 97.7
--- NOTE | 2019-05-19 12:58 | CONS ---
CONSULTATION CHIEF COMPLAINT: Chest pain. Juvenal is a 43-year-old lady who is morbidly overweight, has history of hypothyroidism, GERD, and hypertension who presented to hospital complaining of chest pain. She describes it as a precordial chest discomfort, mild intensity unrelated to exertion and unassociated with diaphoresis. She is admitted to hospital with these symptoms and ruled out for myocardial infarction. At the time of my evaluation, she appears comfortable at rest and is free of significant symptoms. 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 Cardiac enzymes have been negative at the time of my evaluation. I advised the patient to undergo an echocardiogram and if that is unremarkable discharge her home and schedule her for an outpatient followup with Cardiology and an outpatient stress test. PAST MEDICAL HISTORY: Significant for hypertension, hypothyroidism. MEDICATIONS: Medications at home include Protonix, Synthroid, Tenormin, Pepcid. ALLERGIES: She has multiple drug allergies. They are charted and I reviewed them. FAMILY HISTORY: Negative for premature coronary artery disease. SOCIAL HISTORY: Negative for current smoking, EtOH abuse, or drug abuse. REVIEW OF SYSTEMS: HEENT is unremarkable. CARDIAC: As described above. RESPIRATORY: As described above. GI: Negative. GENITOURINARY: Negative. ALLERGY/IMMUNOLOGY: Negative. SKIN: Negative. MUSCULOSKELETAL: Significant for arthritis. PSYCHOSOCIAL: Negative. ENDOCRINE: Negative. DERM: Negative. CONSTITUTIONAL: Negative. ONCOLOGICAL: Negative. Rest of the system review is not relevant. PHYSICAL EXAMINATION: On exam, patient is comfortable at rest. Vital signs are stable. There is no jugular venous distention. Carotid upstroke is normal. There is no bruit. Chest exam reveals good air entry bilaterally. Heart exam reveals first and second heart sounds. No gallop. No murmur. No rub. Abdomen is soft, nontender. Examination of extremities did not reveal any edema. Peripheral pulses are felt. LEAD ASSISTANT MANAGER exam did not reveal focal neurological deficits. ASSESSMENT: 1. Precordial chest pain. 2. Hypertension. The patient's chest discomfort is sharp, atypical. We will obtain a 2D echo. If this appears normal, discharge her home and arrange an outpatient stress test. MMODL / IJN: [id number] /
--- NOTE | 2019-05-21 12:38 | ECHOF ---
Referral Reason:cp MEASUREMENTS -------- HEIGHT: 160.0 cm WEIGHT: 115.7 kg BP: 104/68 IVSd: 1.2 cm (0.6 - 1.1) LVIDd: 5.0 cm (3.9 - 5.3) LVPWd: 1.1 cm (0.6 - 1.1) IVSs: 1.5 cm LVIDs: 3.0 cm LVPWs: 1.3 cm Ao Diam: 2.8 cm (2.0 - 3.7) AV Cusp: 1.9 cm (1.5 - 2.6) MV EXCURSION: 18.221 mm (> 18.000) MV EF SLOPE: 130 mm/s (70 - 150) EPSS: 0.4 cm MV E Milton: 1.14 m/s MV DecT: 296 ms MV A [place]: 0.74 m/s MV E/A Ratio: 1.53 RAP: 5.00 mmHg RVSP: 33.81 mmHg FINDINGS -------- Sinus rhythm. This was a technically adequate study. LV size, wall thickness and systolic function are normal, with an EF greater than 55%. The right ventricle is normal in size and function. The left atrium is normal in size. The right atrial size is normal. Interatrial and interventricular septum intact. The aortic valve is trileaflet, and appears structurally normal. No aortic stenosis or regurgitation. Normal appearing mitral valve. There is trace mitral regurgitation. The tricuspid valve appears structurally normal. Mild tricuspid regurgitation present. There is n o evidence of pulmonary hypertension. There is no pulmonic regurgitation present. The aortic root, ascending aorta and aortic arch are normal. There is no pericardial effusion. CONCLUSIONS -------- 1. Sinus rhythm. 2. This was a technically adequate study. 3. LV size, wall thickness and systolic function are normal, with an EF greater than 55%. 4. The left atrium is normal in size. 5. The aortic valve is trileaflet, and appears structurally normal. No aortic stenosis or regurgitati on. 6. Normal appearing mitral valve. 7. There is trace mitral regurgitation. 8. The tricuspid valve appears structurally normal. 9. Mild tricuspid regurgitation present. 10. There is no evidence of pulmonary hypertension. 11. The aortic root, ascending aorta and aortic arch are normal. 12. There is no pericardial effusion. MARIONETTE PERFORMER: Mustapha Tejada RDCS
--- NOTE | 2019-05-28 00:26 | HP ---
HISTORY AND PHYSICAL SUBJECTIVE: 43-year-old white female, morbidly obese, hypothyroidism, GERD, hypertension, came in with some chest discomfort unrelated to exertion or diaphoresis. She is admitted to rule out myocardial infarction. 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 Cardiac enzymes were negative on admission. Cardiology saw her. Will possibly see for outpatient stress test. PAST MEDICAL HISTORY: Hypertension, hypothyroidism, stress, pseudoseizures. MEDICATIONS: Protonix, Synthroid, Tenormin, Pepcid. ALLERGIES: MULTIPLE DRUG ALLERGIES. REVIEW OF SYSTEMS: Fourteen point review of systems negative except for mentioned in HPI. PHYSICAL EXAM: Vital signs stable. Afebrile. Cardiovascular S1, S2. Lungs transmitted upper sounds. Hematology negative Homans. Psych fair mood and affect. NEUROLOGIC: Alert and oriented x3. OPHTHALMOLOGIC: Pupils equal, round, react to light and accommodation. MUSCULOSKELETAL: Some tense palpation of the chest area. ASSESSMENT: 1. Atypical chest pain, musculoskeletal in nature. 2. Precordial chest pain. 3. Hypertension. 4. Hypothyroidism. Once cleared by Cardiology, she will be discharged. MMODL / IJN: [id number] /
== END 2019-05-19 13:19 | disposition home or self-care (01) ==
LOC: EC 12:47 → 1SOBS 14:46
PROVIDERS: ADMIT Family Medicine; ATTEND Family Medicine
DX: R07.89 Other chest pain (principal); R07.2 Precordial pain; R20.2 Paresthesia of skin; M79.7 Fibromyalgia; K21.9 Gastro-esophageal reflux disease without esophagitis; I10 Essential (primary) hypertension; F44.5 Conversion disorder with seizures or convulsions; K75.4 Autoimmune hepatitis; E03.9 Hypothyroidism, unspecified; M79.605 Pain in left leg; M19.90 Unspecified osteoarthritis, unspecified site; E66.01 Morbid (severe) obesity due to excess calories; Z68.42 Body mass index [BMI] 45.0-49.9, adult; F32.9 Major depressive disorder, single episode, unspecified; F41.9 Anxiety disorder, unspecified; F17.200 Nicotine dependence, unspecified, uncomplicated; Z79.890 Hormone replacement therapy; Z79.899 Other long term (current) drug therapy; Z88.0 Allergy status to penicillin; Z88.5 Allergy status to narcotic agent; Z88.6 Allergy status to analgesic agent; Z88.8 Allergy status to other drugs, medicaments and biological substances; Z91.048 Other nonmedicinal substance allergy status; Z87.440 Personal history of urinary (tract) infections; Z90.49 Acquired absence of other specified parts of digestive tract; Z90.711 Acquired absence of uterus with remaining cervical stump; Z86.718 Personal history of other venous thrombosis and embolism; Z83.3 Family history of diabetes mellitus; Z82.49 Family history of ischemic heart disease and other diseases of the circulatory system
CPT/HCPCS: 96375 ×2; 96376 ×2; 96374; 99285; 36415; 93005; 93306; 85379; 80061; 80053; 83735; 84484 ×2; 85025; 85610; 85730; 71046; G0378 ×2; J2405; J1885; J2270 ×2

== ENCOUNTER 2019-07-18 11:50 | Observation (INO) | payer OTHER ==
[2019-07-18] MEDS ORDERED: IPRATROPIUM-ALBUTEROL 3 ML NEB INHALATION PRN (13:48)
[2019-07-18 14:19] VITALS: BMI 51.3
--- NOTE | 2019-07-18 14:19 | XR ---
EXAMINATION TYPE: XR chest 1V portable DATE OF EXAM: 07/18/2019 COMPARISON: Or chest 05/18/2019 HISTORY: Shortness of breath and cough, congestion TECHNIQUE: Single frontal view of the chest is obtained. FINDINGS: There is no focal air space opacity, pleural effusion, or pneumothorax seen. The cardiac silhouette size is stable accounting for differences in technique. The osseous structures are intac t. IMPRESSION: No acute process.
[2019-07-18] MEDS: IBUPROFEN 600 MG TAB PO PRN (14:39)
[2019-07-18 15:54] LABS: Basophils # (A) 0.1 k/uL (0-0.2); Basophils % (A) 1 %; Eosinophils # (A) 0.2 k/uL (0-0.7); Eosinophils % (A) 3 %; HCT 38.3 % (34.0-46.0); HGB 12.5 gm/dL (11.4-16.0); Lymphocytes # (A) 1.3 k/uL (1.0-4.8); Lymphocytes % (A) 17 %; MCHC 32.7 g/dL (31.0-37.0); MCV 85.7 fL (80.0-100.0); Mean Platelet Volume 7.1; Monocytes # (A) 0.5 k/uL (0-1.0); Monocytes % (A) 6 %; Neutrophils # (A) 5.4 k/uL (1.3-7.7); Neutrophils % (A) 70 %; Platelet Count 195 k/uL (150-450); RBC 4.47 m/uL (3.80-5.40); RDW 15.1 % (11.5-15.5); WBC 7.7 k/uL (3.8-10.6)
[2019-07-18 16:00] LABS: ALT 22 U/L (9-52); AST 25 U/L (14-36); African American GFR (CKD) >90 (>60 ml/min/1.73 sqM); Albumin 3.5 g/dL (3.5-5.0); Alkaline Phosphatase 78 U/L (38-126); Anion Gap 4 mmol/L; Blood Urea Nitrogen 13 mg/dL (7-17); Carbon Dioxide 28 mmol/L (22-30); Chloride 102 mmol/L (98-107); Glucose 254 mg/dL (74-99); Non-African American GFR(CKD) >90 (>60 ml/min/1.73 sqM); Potassium 4.5 mmol/L (3.5-5.1); Sodium 134 mmol/L (137-145); Total Bilirubin 0.3 mg/dL (0.2-1.3); Total Protein 6.2 g/dL (6.3-8.2)
[2019-07-18 16:14] LABS: Creatine Kinase 36 U/L (30-135)
[2019-07-18] MEDS: IPRATROPIUM-ALBUTEROL 3 ML NEB INHALATION SCH ×2 (16:21→21:20)
[2019-07-18 16:25] LABS: Creatine Kinase MB <0.2 ng/mL (0.0-2.4); Troponin I <0.012 ng/mL (0.000-0.034)
[2019-07-18 16:58] LABS: Glucose,Whole Blood 254 mg/dL (75-99)
[2019-07-18] MEDS: AZITHROMYCIN 500 MG in SODIUM CHLORIDE 0.9% 250 ML IVPB SCH (17:38)
[2019-07-18] MEDS: methylPREDNISolone SOD SUCCI 125 MG/2 ML VIAL IV SCH ×2 (17:38→23:37)
[2019-07-18] MEDS: INSULIN ASPART (NovoLOG) 100 UNIT/ML VIAL SQ SCH ×2 (17:39→20:36)
[2019-07-18 20:19] LABS: Glucose,Whole Blood 269 mg/dL (75-99)
[2019-07-18] MEDS: clonazePAM 1 MG TAB PO SCH (20:37)
[2019-07-18] MEDS ORDERED: PALIPERIDONE 6 MG TAB.ER.24 PO SCH (21:00)
[2019-07-18] MEDS ORDERED: MONTELUKAST 10 MG TAB PO SCH (22:00)
--- NOTE | 2019-07-18 23:19 | CONS ---
CONSULTATION Juvenal Lopez is a 43-year-old female who presented to the hospital with a 2- to 3- week history of cough with increasing shortness of breath. She had 3 courses of steroids along with antibiotics and failed to improve. She subsequently was admitted to the hospital for further evaluation and management. She denies any recent fever, chills or rigors other than in the last few days, when she has had quite a bit of sweating but no discrete fever. PAST MEDICAL HISTORY: Her past medical history is positive for hypertension, hypothyroidism, history of pseudoseizures. No clear history of asthma in the past. History of gastroesophageal reflux disease, history of fibromyalgia, cholecystectomy in 2014, tubal ligation, autoimmune hepatitis. FAMILY HISTORY: Family history is positive for diabetes in her mother, hypertension in her father. SOCIAL HISTORY: Patient smokes about a half pack of cigarettes per day. She does not drink alcohol excessively. She does not use any marijuana. She does not vape. MEDICATIONS: Her medications prior to admission were: 1. Klonopin. 2. Protonix. 3. Invega. 4. Habitrol. 5. Synthroid. 6. Pepcid. 7. Drisdol. 8. Tenormin. 9. Ventolin HFA. REVIEW OF SYSTEMS: Review of systems is positive for obesity, history of loud snoring, waking up gasping for breath consistent with obstructive sleep apnea. PHYSICAL EXAMINATION: Blood pressure is 94/61, respiratory rate of 18, pulse rate 84, temperature 97.5. Oxygen saturation on room air is 97%. HEENT reveals pupils that are equal. She has Mallampati IV with redundant tissue in the posterior pharynx. Chest reveals decreased breath sounds with prolonged exhalation and expiratory wheeze. Cardiovascular system is in S1, S2. Abdomen is soft. There is 1+ to 2+ pedal edema. LABS: White count is 7.7 with 0.2 thousand eosinophils. Hemoglobin is 12.5. Glucose is 254. Albumin is 3.5. IMPRESSION AT THIS TIME: 1. Asthma with acute exacerbation. 2. Possible secondary bacterial infection. 3. Obesity. 4. Obstructive sleep apnea is likely clinically. At this point in time from a pulmonary standpoint, keep her on IV and aerosolized steroids, bronchodilators, leukotriene receptor antagonists, insulin sliding scale, GI and DVT prophylaxis. Her prognosis at this time is guarded. I would like to thank you for allowing us to care for her. MARIELOS / OZIEL: [id number] /
[2019-07-19 02:41] LABS: Appearance,Urine Clear (Clear); Bilirubin,Urine Negative (Negative); Blood,Urine Negative (Negative); Color,Urine Light Yellow; Glucose,Urine (UA) 3+ (Negative); Ketones,Urine Negative (Negative); Leukocyte Esterase,Urine Negative (Negative); Nitrite,Urine Negative (Negative); PH, Urine 7.5 (5.0-8.0); Protein,Urine Negative (Negative); Specific Gravity,Urine 1.008 (1.001-1.035); Urobilinogen,Urine <2.0 mg/dL (<2.0)
[2019-07-19 05:27] VITALS: BP 124/82; RESP 16; TEMP 97.8
[2019-07-19] MEDS ORDERED: LEVOTHYROXINE 100 MCG TAB PO SCH (07:00)
[2019-07-19] MEDS: IPRATROPIUM-ALBUTEROL 3 ML NEB INHALATION SCH ×2 (07:10→11:03)
[2019-07-19 07:41] LABS: Glucose,Whole Blood 239 mg/dL (75-99)
[2019-07-19] MEDS ORDERED: ATENOLOL 50 MG TAB PO SCH (08:00)
[2019-07-19] MEDS ORDERED: BUDESONIDE 0.5 MG/2 ML NEBU INHALATION SCH (08:00)
[2019-07-19] MEDS: IBUPROFEN 600 MG TAB PO PRN (08:30)
[2019-07-19] MEDS: clonazePAM 1 MG TAB PO SCH ×2 (08:31→12:57)
[2019-07-19] MEDS: HEPARIN SODIUM,PORCINE 5,000 UNIT/ML 1 ML VIAL SQ SCH ×2 (08:31→08:40)
[2019-07-19] MEDS: methylPREDNISolone SOD SUCCI 125 MG/2 ML VIAL IV SCH (08:31)
[2019-07-19] MEDS: INSULIN ASPART (NovoLOG) 100 UNIT/ML VIAL SQ SCH ×2 (08:32→12:57)
[2019-07-19] MEDS: AZITHROMYCIN 500 MG in SODIUM CHLORIDE 0.9% 250 ML IVPB SCH (08:35)
[2019-07-19] MEDS ORDERED: NICOTINE 21MG/24HR PATCH TRANSDERM SCH (09:00)
[2019-07-19 10:04] LABS: T4, Free (Free Thyroxine) 1.1 ng/dL (0.78-2.19)
[2019-07-19 11:31] VITALS: PULSE 84
[2019-07-19 11:46] LABS: Glucose,Whole Blood 290 mg/dL (75-99)
--- NOTE | 2019-07-19 13:14 | HP ---
HISTORY AND PHYSICAL A 43-year-old white female came in with increasing shortness of breath, failed outpatient treatment with steroids and updraft treatments. She states her pain is worse mostly at night and she has severe shortness of breath at rest and a lot of sweating recently. She was recently admitted was asthma exacerbation. She has a history of pseudoseizures, hypertension, hypothyroidism, asthma, GERD, history of fibromyalgia, cholecystectomy, tubal ligation, autoimmune hepatitis. FAMILY HISTORY: Diabetes in mother. Father hypertension. SOCIAL HISTORY: Smokes half pack a day. No alcohol in excess. No marijuana. No vaping. MEDICATION: Claritin, Protonix, Invega, Habitrol, Synthroid, Pepcid, Drisdol, Tenormin, Ventolin HFA. 14-POINT REVIEW OF SYSTEMS: Loud snoring, waking up gasping for air, morbid obesity. She needs a sleep apnea test. Blood pressure 94/61, respiratory rate 18 to 25, pulse 80 to 85, temp 97.5, O2 at 97% on room air. Currently, pupils equal, round, and reactive. Lungs show decreased breath sounds. Inspiratory and expiratory wheeze. Morbid obesity on endocrine exam. Cardiovascular is S1, S2. Abdomen is soft. E1 to 2+ pedal edema. White count 7.7, hemoglobin is 12.5 sugar is 254. ASSESSMENT: 1. Asthma exacerbation. 2. Possible secondary bacterial infection. 3. Obesity. 4. Obstructive sleep apnea. She remains on IV steroids at this time, bronchodilators, Singular has been added, insulin to scale. Prognosis guarded. MMODL / IJN: [id number] /
--- NOTE | 2019-07-19 13:19 | P.PN ---
Subjective Progress Note Date: 07/19/19 Principal diagnosis: Acute exacerbation of asthma Tracheobronchitis Obstructive sleep apnea Nocturnal desaturation Morbid obesity 07/19/2019, patient seen eval reexamined during the rounds labs reviewed medications reviewed has been doing well wheezing cough congestion is improved, patient is getting steroids antibiotics and breathing treatments, he shouldn't will be evaluated for sleep disorder breathing and sleep apnea as outpatient she has occasional intermittent low-grade desaturation during sleep likely related to that Objective - Vital Signs Vital signs: Vital Signs Temp 97.8 F 07/19/19 05:09 Pulse 84 07/19/19 11:15 Resp 16 07/19/19 08:00 BP 124/82 07/19/19 05:09 Pulse Ox 95 07/19/19 05:27 Intake & Output 07/18/19 07/19/19 07/19/19 18:59 06:59 18:59 Intake Total 320 Balance 320 Weight 131.542 kg Intake: Oral 320 Other: Voiding Method Toilet # Voids 2 - Constitutional General appearance: Present: disheveled, morbidly obese, no acute distress - EENT Eyes: Present: EOMI, PERRLA, poor dentition, normal appearance ENT: Present: normal oropharynx Ears: bilateral: normal - Neck Neck: Present: normal ROM Carotids: bilateral: upstroke normal - Respiratory Respiratory: bilateral: CTA - Cardiovascular Rhythm: regular Heart sounds: normal: S1, S2 - Gastrointestinal General gastrointestinal: Present: normal bowel sounds - Integumentary Integumentary: Present: normal turgor - Neurologic Neurologic: Present: CNII-XII intact - Musculoskeletal Musculoskeletal: Present: gait normal, generalized weakness, strength equal bilaterally - Psychiatric Psychiatric: Present: A&O x's 3, appropriate affect, intact judgment & insight - Labs CBC & Chem 7: 07/18/19 15:21 07/18/19 15:21 Labs: Abnormal Lab Results - Last 24 Hours (Table) 07/18/19 07/18/19 07/18/19 Range/Units 15:21 16:57 20:16 Sodium 134 L (137-145) mmol/L Creatinine 0.41 L (0.52-1.04) mg/dL Glucose 254 H (74-99) mg/dL POC Glucose (mg/dL) 254 H 269 H (75-99) mg/dL Total Protein 6.2 L (6.3-8.2) g/dL TSH (0.465-4.680) mIU/L Urine Glucose (UA) (Negative) 07/19/19 07/19/19 07/19/19 Range/Units 02:01 07:20 07:39 Sodium (137-145) mmol/L Creatinine (0.52-1.04) mg/dL Glucose (74-99) mg/dL POC Glucose (mg/dL) 239 H (75-99) mg/dL Total Protein (6.3-8.2) g/dL TSH 0.304 L (0.465-4.680) mIU/L Urine Glucose (UA) 3+ H (Negative) 07/19/19 Range/Units 11:27 Sodium (137-145) mmol/L Creatinine (0.52-1.04) mg/dL Glucose (74-99) mg/dL POC Glucose (mg/dL) 290 H (75-99) mg/dL Total Protein (6.3-8.2) g/dL TSH (0.465-4.680) mIU/L Urine Glucose (UA) (Negative) Assessment and Plan Assessment: Acute exacerbation of asthma Tracheobronchitis Obstructive sleep apnea Nocturnal desaturation Morbid obesity Plan: Agree with discharge planning Continue home medications and breathing treatments and oral tapering steroids We'll see her in office and schedule the sleep study Time with Patient: Greater than 30
[2019-07-19] MEDS ORDERED: FAMOTIDINE 20 MG TAB PO SCH (18:00)
[2019-07-20] MEDS ORDERED: AZITHROMYCIN 500 MG TAB PO SCH (09:00)
--- NOTE | 2019-07-29 21:55 | DS ---
DISCHARGE SUMMARY ADMISSION DATE: 07/18/2019. DISCHARGE DATE: 07/19/2019. MEDICATIONS: Include: 1. Pepcid 40 mg daily. 2. Synthroid 100 mcg daily. 3. Klonopin 1 mg t.i.d. 4. Ventolin HFA 2 puffs q.4 hours p.r.n. 5. Invega 6 mg at night. 6. Tenormin 50 mg b.i.d. 7. Nicotine patch 24 mg daily. CONDITION: Stable. PROGNOSIS: Guarded. HOSPITAL COURSE OF EVENTS: This is a white female came into the hospital with acute exacerbation of asthma, tracheobronchitis, obstructive sleep apnea, desaturation, morbid obesity, received steroids, updrafts and antibiotics. She will get an outpatient sleep study. Her breathing improved over the next 24 hours, at which time she was sent home. Cleared by rim fire priming tool setter. Follow up as an outpatient. MMODL / IJN: [id number] /
[2019-07-30] MEDS ORDERED: ERGOCALCIFEROL 50,000 UNIT CAP PO SCH (09:00)
== END 2019-07-19 13:37 | disposition home or self-care (01) ==
LOC: 4MS4W 12:35
PROVIDERS: ADMIT Family Medicine; ATTEND Family Medicine
DX: J45.901 Unspecified asthma with (acute) exacerbation (principal); G47.33 Obstructive sleep apnea (adult) (pediatric); E66.01 Morbid (severe) obesity due to excess calories; Z68.43 Body mass index [BMI] 50.0-59.9, adult; R60.0 Localized edema; M79.7 Fibromyalgia; I10 Essential (primary) hypertension; E03.9 Hypothyroidism, unspecified; K21.9 Gastro-esophageal reflux disease without esophagitis; K75.4 Autoimmune hepatitis; F17.210 Nicotine dependence, cigarettes, uncomplicated; Z83.3 Family history of diabetes mellitus; Z82.49 Family history of ischemic heart disease and other diseases of the circulatory system; Z90.49 Acquired absence of other specified parts of digestive tract; Z79.890 Hormone replacement therapy; Z79.899 Other long term (current) drug therapy
CPT/HCPCS: 96376 ×2; 96365; 96366 ×2; 96375; 94640 ×3; 93005; 36410; 76937; 85379; 84439; 80053; 84443; 82550; 82553; 84484; 85025; 81003; 71045; G0379; G0378 ×2; J2930 ×2; J0456 ×2

== ENCOUNTER → 2019-08-09 | Outpatient (CLI) | payer OTHER ==
--- NOTE | 2019-08-09 21:34 | CT ---
EXAMINATION TYPE: CT chest wo con DATE OF EXAM: 08/09/2019 COMPARISON: Chest x-ray July 18, 2019 older studies. HISTORY: pneumonia CT DLP: 794 mGycm. Automated Exposure Control for Dose Reduction was Utilized. TECHNIQUE: CT scan of the thorax is performed without IV contrast. FINDINGS: LUNGS: The lungs are grossly clear, there is no concerning parenchymal mass or nodule identified. T here is no pleural effusion or pneumothorax seen. The tracheobronchial tree is patent. MEDIASTINUM: Lack of IV contrast is noted to limit evaluation for mediastinal and especially hilar ad enopathy. There are no definitive greater than 1 cm hilar or mediastinal lymph nodes. No cardiomega ly or pericardial effusion is seen. OTHER: Cholecystectomy clips are seen. Visualized liver is hypodense relative to spleen consistent wi th diffuse fatty infiltration. IMPRESSION: No suspicious acute pulmonary process. Unremarkable study.
[2019-08-10 13:53] LABS: Alt. alternata IgE Class CLASS 0; Alternaria alternata IgE <0.10 kU/L (<0.10); Asperg. fumagatus IgE <0.10 kU/L (<0.10); Asperg. fumagatus IgE Class CLASS 0; Candida albicans IgE Class CLASS 0/1; Clad herbarum IgE <0.10 kU/L (<0.10); Clad herbarum IgE Class CLASS 0; Latex IgE Class CLASS 0; Mucor racemosus IgE <0.10 kU/L (<0.10); Mucor racemosus IgE Class CLASS 0; Penicillium chrysogenum IgE <0.10 kU/L (<0.10); Penicillium chrysogenum IgE Cl CLASS 0
== END | disposition home or self-care (01) ==
LOC: RADCTMAIN 16:03
PROVIDERS: ATTEND Internal Medicine Sleep Medicine
DX: J18.9 Pneumonia, unspecified organism (principal); B44.81 Allergic bronchopulmonary aspergillosis
CPT/HCPCS: 36415; 71250; 86001; 86003; 86606; 86609

== ENCOUNTER 2020-05-29 16:21 | Observation (INO) | payer OTHER ==
[2020-05-29] MEDS ORDERED: ONDANSETRON 4 MG/2 ML VIAL IVP STA (17:06)
[2020-05-29] MEDS ORDERED: SODIUM CHLORIDE 0.9% 1,000 ML IV STA (17:06)
[2020-05-29] MEDS ORDERED: FAMOTIDINE 20 MG/2 ML VIAL IV STA (17:07)
[2020-05-29] MEDS ORDERED: MAG HYDROX/AL HYDROX/SIMETH 30 ML, HYOSCYAMINE ELIXIR 10 ML, LIDOCAINE VISCOUS 2% 10 ML PO STA ×3 (17:07)
--- NOTE | 2020-05-29 17:34 | ED ---
General Adult HPI - General Chief complaint: Abdominal Pain Stated complaint: abd pain Time Seen by Provider: 05/29/20 16:51 Source: patient, RN notes reviewed Mode of arrival: wheelchair Limitations: no limitations - History of Present Illness Initial comments: 44-year-old female with a past medical history cholecystectomy, hysterectomy, autoimmune hepatitis presents to the emergency department for a chief complaint of upper abdominal pain. Patient reports that this started 3 days ago. She states she has been nauseous without vomiting since that time. She states eating makes this worse. She reports that she does not have diarrhea. Patient had a computed tomography scan 2 days ago at [facility]. States the CT and her lab work were negative at that time. Patient then saw Dr. Ashley the next morning who started her on Bentyl and Zofran. States these have not helped. Patient has no other complaints at this time including shortness of breath, chest pain, nausea or vomiting, headache, or visual changes. - Related Data Home Medications Medication Instructions Recorded Confirmed Famotidine [Pepcid] 40 mg PO AC-SUPPER@1800 01/11/19 07/18/19 Pantoprazole Sodium [Protonix] 20 mg PO DAILY@0800 01/11/19 07/18/19 Ergocalciferol (Vitamin D2) 50,000 unit PO Q14D 04/03/19 07/18/19 [Drisdol] Levothyroxine Sodium [Synthroid] 100 mcg PO DAILY@0700 04/03/19 07/18/19 clonazePAM [KlonoPIN] 1 mg PO TID@0800,1400,2100 04/03/19 07/18/19 Albuterol Inhaler (Mhu) [Ventolin 1 - 2 puff INHALATION RT-Q6H PRN 07/18/19 07/18/19 Hfa Inhaler] Albuterol Nebulized [Ventolin 2.5 mg INHALATION RT-TID 07/18/19 07/18/19 Nebulized] Nicotine 21Mg/24Hr Patch [Habitrol] 1 patch TRANSDERM DAILY 07/18/19 07/18/19 Paliperidone [Invega] 6 mg PO HS@2100 07/18/19 07/18/19 atenoloL [Tenormin] 50 mg PO BID@0800,1800 11/13/19 11/13/19 Allergies Allergy/AdvReac Type Severity Reaction Status Date / Time amoxicillin Allergy Rash/Hives Verified 05/29/20 16:32 lorazepam [From Ativan] Allergy RACING Verified 05/29/20 16:32 HEART acetaminophen [From Tylenol] AdvReac Nausea & Verified 05/29/20 16:32 Vomiting codeine AdvReac Vomiting,brunner Verified 05/29/20 16:32 llucination s hydromorphone [From Dilaudid] AdvReac hallucinati Verified 05/29/20 16:32 ons,vomitin g lamotrigine [From Lamictal] AdvReac Ben Verified 05/29/20 16:32 Zay's Syndrome lisinopril AdvReac Anaphylaxis Verified 05/29/20 16:32 metronidazole [From Flagyl] AdvReac Nausea & Verified 05/29/20 16:32 Vomiting,rash paper tape Allergy Rash/Hives Uncoded 05/29/20 16:32 Review of Systems ROS Statement: Those systems with pertinent positive or pertinent negative responses have been documented in the HPI. ROS Other: All systems not noted in ROS Statement are negative. Past Medical History Past Medical History: Fibromyalgia, GERD/Reflux, Hypertension, Liver Disease, Seizure Disorder Additional Past Medical History / Comment(s): Pseudoseizures with last one being one week ago, autoimmune hepatitis, lupus, hyperglycemia with steroid use, hypothyroid, UTI, stomach and bowel issues-to have EGD/colonoscopy. History of Any Multi-Drug Resistant Organisms: None Reported Past Surgical History: Cholecystectomy, Hysterectomy, Tubal Ligation, Uterine Ablation Additional Past Surgical History / Comment(s): Partial hysterectomy 2012, NovaSure ablation in 2011 Past Anesthesia/Blood Transfusion Reactions: No Reported Reaction Past Psychological History: Anxiety, Bipolar, Depression Smoking Status: Current every day smoker Past Alcohol Use History: None Reported Past Drug Use History: None Reported - Past Family History Father Family Medical History: Hypertension Additional Family Medical History / Comment(s): Father is from "medical malpractice" he from an intracranial bleed at the age of 52yrs Mother Family Medical History: Diabetes Mellitus Brother(s) Family Medical History: No Reported History Sister(s) Family Medical History: Cancer Additional Family Medical History / Comment(s): Sister from gastric cancer at the age of 30yrs. Son(s) Family Medical History: No Reported History Daughter(s) Family Medical History: No Reported History General Exam Limitations: no limitations General appearance: alert, in no apparent distress Head exam: Present: atraumatic, normocephalic, normal inspection Eye exam: Present: normal appearance, PERRL, EOMI. Absent: scleral icterus, conjunctival injection, periorbital swelling ENT exam: Present: normal exam, mucous membranes moist Neck exam: Present: normal inspection, full ROM. Absent: tenderness, meningismus, lymphadenopathy Respiratory exam: Present: normal lung sounds bilaterally. Absent: respiratory distress, wheezes, rales, rhonchi, stridor Cardiovascular Exam: Present: regular rate, normal rhythm, normal heart sounds. Absent: systolic murmur, diastolic murmur, rubs, gallop, clicks GI/Abdominal exam: Present: soft, tenderness (generalized, worse in the epigastric area), normal bowel sounds. Absent: distended, guarding, rebound, rigid Neurological exam: Present: alert Course Vital Signs 05/29/20 16:30 Temperature 99.0 F Pulse Rate 73 Respiratory 20 Rate Blood Pressure 137/83 O2 Sat by Pulse 97 Oximetry - Reevaluation(s) Reevaluation #1: 05/29/20 18:[address] abdomen and pelvis without oral or IV contrast on the that showed mild bilateral hydronephrosis which is consistent with exam [address] is negative. Medical Decision Making - Medical Decision Making Vitals are stable. Physical exam does reveal generalized abdominal tenderness. CBC CMP is unremarkable. Urinalysis is unremarkable. Patient has history of hysterectomy. CT abdomen and pelvis was obtained 3 days ago, unremarkable at that time. Patient was given several different rounds of medications and continues to have abdominal pain. Patient has been seen at another emergency room and seen Dr. Ashley outpatient. She reportedly called Dr. Galindo today who requested she was sent to the ER. We did speak with him about her intractable pain and he agrees to admit patient. Patient will be admitted to him and GI will be consulted. - Lab Data Result diagrams: 05/29/20 17:54 05/29/20 17:54 Lab Results 05/29/20 05/29/20 05/29/20 Range/Units 17:54 17:54 17:54 WBC 11.1 H (3.8-10.6) k/uL RBC 5.25 (3.80-5.40) m/uL Hgb 14.7 (11.4-16.0) gm/dL Hct 45.3 (34.0-46.0) % MCV 86.2 (80.0-100.0) fL MCH 28.0 (25.0-35.0) pg MCHC 32.5 (31.0-37.0) g/dL RDW 14.5 (11.5-15.5) % Plt Count 361 (150-450) k/uL Neutrophils % 68 % Lymphocytes % 21 % Monocytes % 6 % Eosinophils % 3 % Basophils % 1 % Neutrophils # 7.6 (1.3-7.7) k/uL Lymphocytes # 2.3 (1.0-4.8) k/uL Monocytes # 0.7 (0-1.0) k/uL Eosinophils # 0.3 (0-0.7) k/uL Basophils # 0.1 (0-0.2) k/uL Sodium 138 (137-145) mmol/L Potassium 4.0 (3.5-5.1) mmol/L Chloride 104 (98-107) mmol/L Carbon Dioxide 27 (22-30) mmol/L Anion Gap 7 mmol/L BUN 6 L (7-17) mg/dL Creatinine 0.55 (0.52-1.04) mg/dL Est GFR (CKD-EPI)AfAm >90 (>60 ml/min/1.73 sqM) Est GFR (CKD-EPI)NonAf >90 (>60 ml/min/1.73 sqM) Glucose 195 H (74-99) mg/dL Plasma Lactic Acid [place] (0.7-2.0) mmol/L Calcium 9.2 (8.4-10.2) mg/dL Total Bilirubin 0.4 (0.2-1.3) mg/dL AST 42 H (14-36) U/L ALT 31 (4-34) U/L Alkaline Phosphatase 69 (38-126) U/L Total Protein 7.7 (6.3-8.2) g/dL Albumin 3.7 (3.5-5.0) g/dL Amylase 32 (30-110) U/L Lipase 40 (23-300) U/L Urine Color Yellow Urine Appearance Clear (Clear) Urine pH 6.5 (5.0-8.0) Ur Specific [place] 1.013 (1.001-1.035) Urine Protein Negative (Negative) Urine Glucose (UA) Negative (Negative) Urine Ketones Negative (Negative) Urine Blood Negative (Negative) Urine Nitrite Negative (Negative) Urine Bilirubin Negative (Negative) Urine Urobilinogen <2.0 (<2.0) mg/dL Ur Leukocyte Esterase Negative (Negative) 05/29/20 Range/Units 17:54 WBC (3.8-10.6) k/uL RBC (3.80-5.40) m/uL Hgb (11.4-16.0) gm/dL Hct (34.0-46.0) % MCV (80.0-100.0) fL MCH (25.0-35.0) pg MCHC (31.0-37.0) g/dL RDW (11.5-15.5) % Plt Count (150-450) k/uL Neutrophils % % Lymphocytes % % Monocytes % % Eosinophils % % Basophils % % Neutrophils # (1.3-7.7) k/uL Lymphocytes # (1.0-4.8) k/uL Monocytes # (0-1.0) k/uL Eosinophils # (0-0.7) k/uL Basophils # (0-0.2) k/uL Sodium (137-145) mmol/L Potassium (3.5-5.1) mmol/L Chloride (98-107) mmol/L Carbon Dioxide (22-30) mmol/L Anion Gap mmol/L BUN (7-17) mg/dL Creatinine (0.52-1.04) mg/dL Est GFR (CKD-EPI)AfAm (>60 ml/min/1.73 sqM) Est GFR (CKD-EPI)NonAf (>60 ml/min/1.73 sqM) Glucose (74-99) mg/dL Plasma Lactic Acid [place] 1.5 (0.7-2.0) mmol/L Calcium (8.4-10.2) mg/dL Total Bilirubin (0.2-1.3) mg/dL AST (14-36) U/L ALT (4-34) U/L Alkaline Phosphatase (38-126) U/L Total Protein (6.3-8.2) g/dL Albumin (3.5-5.0) g/dL Amylase (30-110) U/L Lipase (23-300) U/L Urine Color Urine Appearance (Clear) Urine pH (5.0-8.0) Ur Specific [place] (1.001-1.035) Urine Protein (Negative) Urine Glucose (UA) (Negative) Urine Ketones (Negative) Urine Blood (Negative) Urine Nitrite (Negative) Urine Bilirubin (Negative) Urine Urobilinogen (<2.0) mg/dL Ur Leukocyte Esterase (Negative) Disposition Clinical Impression: Intractable abdominal pain Disposition: ADMITTED IP TO THIS HOSP Condition: Fair Is patient prescribed a controlled substance at d/c from ED?: No Referrals: Sandip Ashley MD [Primary Care Provider] - 1-2 days Time of Disposition: 18:54
[2020-05-29 18:01] LABS: Appearance,Urine Clear (Clear); Bilirubin,Urine Negative (Negative); Blood,Urine Negative (Negative); Color,Urine Yellow; Glucose,Urine (UA) Negative (Negative); Ketones,Urine Negative (Negative); Leukocyte Esterase,Urine Negative (Negative); Nitrite,Urine Negative (Negative); PH, Urine 6.5 (5.0-8.0); Protein,Urine Negative (Negative); Specific Gravity,Urine 1.013 (1.001-1.035); Urobilinogen,Urine <2.0 mg/dL (<2.0)
[2020-05-29 18:10] LABS: Basophils # (A) 0.1 k/uL (0-0.2); Basophils % (A) 1 %; Eosinophils # (A) 0.3 k/uL (0-0.7); Eosinophils % (A) 3 %; HCT 45.3 % (34.0-46.0); HGB 14.7 gm/dL (11.4-16.0); Lymphocytes # (A) 2.3 k/uL (1.0-4.8); Lymphocytes % (A) 21 %; MCHC 32.5 g/dL (31.0-37.0); MCV 86.2 fL (80.0-100.0); Mean Platelet Volume 7.4; Monocytes # (A) 0.7 k/uL (0-1.0); Monocytes % (A) 6 %; Neutrophils # (A) 7.6 k/uL (1.3-7.7); Neutrophils % (A) 68 %; Platelet Count 361 k/uL (150-450); RBC 5.25 m/uL (3.80-5.40); RDW 14.5 % (11.5-15.5); WBC 11.1 k/uL (3.8-10.6)
[2020-05-29 18:12] LABS: ALT 31 U/L (4-34); AST 42 U/L (14-36); African American GFR (CKD) >90 (>60 ml/min/1.73 sqM); Albumin 3.7 g/dL (3.5-5.0); Alkaline Phosphatase 69 U/L (38-126); Amylase 32 U/L (30-110); Anion Gap 7 mmol/L; Blood Urea Nitrogen 6 mg/dL (7-17); Calcium 9.2 mg/dL (8.4-10.2); Carbon Dioxide 27 mmol/L (22-30); Chloride 104 mmol/L (98-107); Glucose 195 mg/dL (74-99); Lipase 40 U/L (23-300); Non-African American GFR(CKD) >90 (>60 ml/min/1.73 sqM); Sodium 138 mmol/L (137-145); Total Bilirubin 0.4 mg/dL (0.2-1.3); Total Protein 7.7 g/dL (6.3-8.2)
[2020-05-29] MEDS ORDERED: MORPHINE SULFATE 4 MG/ML SYRINGE IVP STA (18:35)
[2020-05-29] MEDS ORDERED: ONDANSETRON 4 MG/2 ML VIAL IVP PRN (18:48)
[2020-05-29] MEDS ORDERED: NALOXONE 0.4 MG/ML 1 ML VIAL IV PRN (18:48)
[2020-05-29 20:24] LABS: Glucose,Whole Blood 128 mg/dL (75-99)
[2020-05-29] MEDS ORDERED: PALIPERIDONE 3 MG TAB.ER.24 PO SCH (22:00)
[2020-05-29] MEDS ORDERED: MIRTAZAPINE 15 MG TAB PO SCH (22:00)
[2020-05-29] MEDS ORDERED: clonazePAM 1 MG TAB PO SCH (22:00)
[2020-05-29] MEDS: atenoloL 50 MG TAB PO SCH (22:48)
[2020-05-29] MEDS: ONDANSETRON 4 MG/2 ML VIAL IVP PRN (22:49)
[2020-05-29] MEDS: MORPHINE SULFATE 4 MG/ML SYRINGE IV PRN (22:49)
[2020-05-29] MEDS: SODIUM CHLORIDE 0.9% 1,000 ML IV SCH (23:04)
--- NOTE | 2020-05-29 23:36 | US ---
EXAMINATION TYPE: US abdomen complete DATE OF EXAM: 05/29/2020 COMPARISON: US, CT CLINICAL HISTORY: abdominal pain. Abdominal pain x 3 days. Hx cholecystectomy. EXAM MEASUREMENTS: Liver Length: 16.8 cm Gallbladder Wall: Cholecystectomy. CBD: 0.33 cm Spleen: 10.7 cm Right Kidney: 11.5 x 5.9 x 5.3 cm Left Kidney: 11.2 x 5.9 x 6.0 cm Limited exam due to patient body habitus and gas. Pancreas: Limited due to gas. Liver: Appears to have an increased echogenicity. Increased attenuation. Evidence for sonographic Kc's sign: No CBD: Limited, measured at 0.33 cm. Spleen: No abnormalities seen. Right Kidney: No hydronephrosis or masses seen Left Kidney: Hypoechoic area seen superiorly measurin.5 x 1.7 x 1.9 cm. Upper IVC: Limited visibility. Abd Aorta: Limited, distal segment and iliac arteries not visualized. IMPRESSION: There is probably a cyst in the upper pole left kidney. No dilated ducts. No evidence of renal obstru ction.
[2020-05-30 01:55] LABS: Glucose,Whole Blood 142 mg/dL (75-99)
[2020-05-30] MEDS: MORPHINE SULFATE 4 MG/ML SYRINGE IV PRN ×2 (02:19→06:34)
[2020-05-30] MEDS: ONDANSETRON 4 MG/2 ML VIAL IVP PRN ×2 (02:19→06:34)
[2020-05-30] MEDS: SODIUM CHLORIDE 0.9% 1,000 ML IV SCH ×2 (06:33→14:54)
[2020-05-30] MEDS: clonazePAM 1 MG TAB PO SCH ×2 (06:34→14:53)
[2020-05-30] MEDS ORDERED: LEVOTHYROXINE 100 MCG TAB PO SCH (07:00)
[2020-05-30 07:33] VITALS: RESP 16
[2020-05-30] MEDS: atenoloL 50 MG TAB PO SCH (07:35)
[2020-05-30] MEDS: DICYCLOMINE 10 MG CAP PO SCH ×2 (07:36→12:09)
[2020-05-30] MEDS ORDERED: PANTOPRAZOLE 40 MG/10 ML VIAL IV SCH (09:00)
--- NOTE | 2020-05-30 09:30 | HP ---
HISTORY AND PHYSICAL A 44-year-old white female with recurrent trips to the ER for significant abdominal pain, status post cholecystectomy, autoimmune hepatitis in the ER for upper abdominal pain started 3 days ago, nausea, vomiting. Eating makes this worse. Does not have diarrhea, CT 2 days ago at [facility] was negative. Started her on Bentyl and Zofran at home. These have not helped her. She does not complain of any shortness of breath, chest pain. No nausea, vomiting, headache, or visual changes. Home medicines include Pepcid 40 mg daily, vitamin D daily, Synthroid 100 mcg daily, Klonopin 1 mg t.i.d., albuterol inhaler 2 puffs q.4 p.r.n., nicotine patch, Invega 6 mg q.h.s., Tenormin 50 mg b.i.d. Allergies to AMOXICILLIN, ATIVAN, DILAUDID, LAMICTAL, FLAGYL. 14 POINT REVIEW OF SYSTEMS: Negative except for as mentioned in HPI. PAST MEDICAL HISTORY: Fibromyalgia, GERD, hypertension, liver disease, seizure disorder, , hepatitis, hypothyroidism, UTI. SURGERY HISTORY: Cholecystectomy, hysterectomy, tubal ligation, uterine ablation, anxiety, bipolar depression. Current everyday smoker. No alcohol. No drugs. FAMILY HISTORY: Father with hypertension, mother with diabetes mellitus. Sister with gastric cancer. Son negative. Daughter negative. PHYSICAL EXAMINATION: Overweight, white female in no acute distress. CARDIOVASCULAR: S1-S2. LUNGS: Transmitted upper airway sounds. GI: Distended, obesity. Normal bowel sounds. HEMATOLOGY: Negative Homans. PSYCH: Fair mood and affect. OPHTHALMOLOGIC: Pupils equal, round, reactive. Temperature 97, respiratory 18-20, blood pressure 130s/80s, O2 is 97%. ASSESSMENT: Acute abdominal pain, acute on chronic, mild leukocytosis, elevated glucose levels, rule out diabetes mellitus without gastroparesis. Negative plasma lactic acid, irretractable abdominal pain. Will have to work her up with GI consult. MMODL / IJN: [id number] /
[2020-05-30 12:36] LABS: Hemoglobin A1C 7.9 % (4.0-6.0)
[2020-05-30 14:57] VITALS: BP 107/51; PULSE 75; TEMP 98
[2020-05-30 15:46] VITALS: BMI 48.9
--- NOTE | 2020-05-30 17:08 | FL ---
Barium swallow, small bowel follow-through HISTORY: Abdominal pain and gastroparesis Patient was given high density barium to drink. Physical Science Aide film shows surgical clips in the right upper qu adrant. Swallowing mechanism is normal. There is no obstruction to flow. No gastroesophageal reflux or hiatal hernia. Some redundancy in the thoracic esophagus noted. Small bowel fold pattern is normal. There is no obstruction to flow. Contrast courses to the level of the terminal ileum which shows an unremarkable appearance. Transit time approximately 3 hours to the colon. 1 minute 45 seconds fluoroscopy time. 20 images obtained. IMPRESSION: Normal swallowing. No bowel obstruction.
[2020-05-30] MEDS ORDERED: FAMOTIDINE 20 MG TAB PO SCH (22:00)
--- NOTE | 2020-05-31 09:18 | P.CONS ---
History of Present Illness - Reason for Consult Consult date: 05/30/20 abdominal pain Requesting physician: Sandip Ashley - Chief Complaint abdominal pain - History of Present Illness 44-year-old female with a medical history significant for autoimmune hepatitis, GERD, hysterectomy and cholecystectomy who presented to the hospital due to com plaints of abdominal pain. She reports 4 days of pain in the epigastric region of her abdomen described as severe in nature with associated nausea. Patient had been seen in the outpatient setting and started on Bentyl and Zofran with no relief of her symptoms. She also takes Protonix daily and Pepcid at night at baseline. She had a CT performed at [facility] which she reports was normal. Ultrasound of the liver performed in evaluation showed increased echogenicity of the liver. She has previously undergone EGD and colonoscopy in the outpatient setting with her last colonoscopy in 2012 and significant for 1 polyp. Laboratory evaluation significant for WBC 11.1, hemoglobin 14.7, platelet count 364,000, total bilirubin 0.4, alkaline phosphatase 69, AST 42 and ALT 31. Currently patient is reporting some improvement in her symptoms. Review of Systems REVIEW OF SYSTEMS: CONSTITUTIONAL: Denies any fevers, chills, weight change or fatigue. CARDIOVASCULAR: Denies any chest pain, palpitations high or low blood pressures RESPIRATORY: Denies any shortness of breath, hemoptysis or cough. GENITOURINARY: No dysuria or hematuria. MUSCULOSKELETAL: No weakness reported. SKIN: Denies any new rashes or lesions, jaundice or pallor. PSYCHIATRIC: Denies any depression or anxiety. NEUROLOGY: Denies headache, denies any new focal deficits. EARS/NOSE/THROAT: No recent hearing change, congestion, nasal discharge or sore throat. EYES: No pain in eyes, discharge or change in vision. GASTROINTESTINAL: As per HPI. Past Medical History Past Medical History: Diabetes Mellitus, Fibromyalgia, GERD/Reflux, Hypertension, Liver Disease, Seizure Disorder Additional Past Medical History / Comment(s): seizure last one 2 weeks ago, autoimmune hepatitis, hypothyroid, UTI, stomach and bowel issues History of Any Multi-Drug Resistant Organisms: None Reported Past Surgical History: Cholecystectomy, Hysterectomy, Tubal Ligation, Uterine Ablation Additional Past Surgical History / Comment(s): Partial hysterectomy 2011, NovaSure ablation in 2011 Past Anesthesia/Blood Transfusion Reactions: No Reported Reaction Past Psychological History: Anxiety, Bipolar, Depression Additional Psychological History / Comment(s): Pt resides with her mother Smoking Status: Current every day smoker Past Alcohol Use History: None Reported Past Drug Use History: None Reported - Past Family History Father Family Medical History: Hypertension Additional Family Medical History / Comment(s): Father is from "medical malpractice" he from an intracranial bleed at the age of 52yrs Mother Family Medical History: Diabetes Mellitus Brother(s) Family Medical History: No Reported History Sister(s) Family Medical History: Cancer Additional Family Medical History / Comment(s): Sister from gastric cancer at the age of 30yrs. Son(s) Family Medical History: No Reported History Daughter(s) Family Medical History: No Reported History Medications and Allergies Home Medications Medication Instructions Recorded Confirmed Type Famotidine [Pepcid] 40 mg PO HS@219901/11/19 05/29/20 History Pantoprazole Sodium [Protonix] 20 mg PO DAILY@0800 01/11/19 05/29/20 History Ergocalciferol (Vitamin D2) 50,000 unit PO TU 04/03/19 05/29/20 History [Drisdol] clonazePAM [KlonoPIN] 1 mg PO BID@0600,1400 04/03/19 05/29/20 History atenoloL [Tenormin] 50 mg PO BID@0800,2200 07/18/19 05/29/20 History Dicyclomine [Bentyl] 10 mg PO AC-TID 05/29/20 05/29/20 History Levothyroxine Sodium [Synthroid] 200 mcg PO DAILY@0700 05/29/20 05/29/20 History Mirtazapine 30 mg PO HS@219905/29/20 05/29/20 History Ondansetron HCl [Zofran] 4 mg PO Q6H PRN 05/29/20 05/29/20 History Paliperidone [Invega] 9 mg PO HS@219905/29/20 05/29/20 History clonazePAM [KlonoPIN] 2 mg PO HS@219905/29/20 05/29/20 History Allergies Allergy/AdvReac Type Severity Reaction Status Date / Time amoxicillin Allergy Rash/Hives Verified 05/29/20 20:52 lorazepam [From Ativan] Allergy RACING Verified 05/29/20 20:52 HEART acetaminophen [From Tylenol] AdvReac Nausea & Verified 05/29/20 20:52 Vomiting codeine AdvReac Vomiting,brunner Verified 05/29/20 20:52 llucination s hydromorphone [From Dilaudid] AdvReac hallucinati Verified 05/29/20 20:52 ons,vomitin g lamotrigine [From Lamictal] AdvReac Ben Verified 05/29/20 20:52 Zay's Syndrome lisinopril AdvReac Anaphylaxis Verified 05/29/20 20:52 metronidazole [From Flagyl] AdvReac Nausea & Verified 05/29/20 20:52 Vomiting,rash paper tape Allergy Rash/Hives Uncoded 05/29/20 20:52 Physical Exam Vitals: Vital Signs Temp Pulse Pulse Resp BP BP Pulse Ox 05/30/20 07:39 65 16 05/30/20 07:33 97.5 F L 16 121/85 94 L 05/30/20 02:41 98.2 F 69 18 99/62 92 L 05/29/20 21:00 98.1 F 68 18 136/90 97 05/29/20 18:56 98.0 F 87 16 119/68 96 05/29/20 16:30 99.0 F 73 20 137/83 97 Intake and Output 05/29/20 05/30/20 05/30/20 22:59 06:59 14:59 Intake Total 400 780 Balance 400 780 Intake: Oral 400 780 Other: Voiding Method Toilet Toilet Toilet # Voids 1 1 Weight 125.191 kg On physical examination, patient appears comfortable in no apparent distress. HEAD: Normocephalic, atraumatic. EYES: No scleral icterus. No conjunctival injection. MOUTH: No lesions, tongue midline. NECK: Trachea midline, no gross abnormalities. CHEST: Clear to auscultation with no wheezing or rhonchi appreciated. HEART: Regular rate and rhythm. ABDOMEN: Soft, obese. Bowel sounds are positive. No organomegaly. No guarding or rigidity. EXTREMITIES: No pedal edema. SKIN: No rashes, no jaundice. NEUROLOGIC: Alert and oriented x3. No focal deficits. Results CBC & Chem 7: 05/29/20 17:54 05/29/20 17:54 Labs: Abnormal Lab Results - Last 24 Hours (Table) 05/29/20 05/29/20 05/29/20 Range/Units 17:54 17:54 20:22 WBC 11.1 H (3.8-10.6) k/uL BUN 6 L (7-17) mg/dL Glucose 195 H (74-99) mg/dL POC Glucose (mg/dL) 128 H (75-99) mg/dL Hemoglobin A1c (4.0-6.0) % AST 42 H (14-36) U/L 05/30/20 05/30/20 Range/Units 01:53 07:56 WBC (3.8-10.6) k/uL BUN (7-17) mg/dL Glucose (74-99) mg/dL POC Glucose (mg/dL) 142 H (75-99) mg/dL Hemoglobin A1c 7.9 H (4.0-6.0) % AST (14-36) U/L US - abdomen: report reviewed (ultrasound of the abdomen significant for increased echogenicity of the liver) Assessment and Plan (1) Intractable abdominal pain Narrative/Plan: 34-year-old female presenting for intractable abdominal pain. Reports computed tomography scan [facility] was normal. Ultrasound performed in evaluation and significant only for increased echogenicity of the liver patient with a known history of autoimmune hepatitis. She is status post cholecystectomy. Liver enzymes normal. She has a known history of reflux. Unclear if pain is secondary to functional bowel disorder, uncontrolled reflux, or other etiology. Status: Acute Code(s): R10.9 - UNSPECIFIED ABDOMINAL PAIN SNOMED Code(s): 75072611 Plan: supportive care Okay for diet as tolerated Dietary modifications including avoiding foods which trigger her reflux discussed Continue current medical management Patient should follow-up after discharge for EGD and colonoscopy for further evaluation Thank you for allowing us to participate in the care of the patient
[2020-06-03] MEDS ORDERED: ERGOCALCIFEROL 50,000 UNIT CAP PO SCH (09:00)
--- NOTE | 2020-06-15 07:06 | DS ---
DISCHARGE SUMMARY DATE OF ADMISSION: 05/29/2020 DATE OF DISCHARGE: 05/30/2020 DISCHARGE MEDICATIONS: Pepcid 40 mg daily, Protonix 20 mg daily, vitamin D 50,000 units weekly, Klonopin 1 mg b.i.d., Tenormin 50 b.i.d., mirtazapine 30 mg daily, Invega 9 mg tablet she takes once a day, levothyroxine 200 mcg daily, Klonopin 2 mg at night, Zofran 4 mg q.6 hours p.r.n. CONDITION: Stable. PROGNOSIS: Guarded. ACTIVITY: Ambulate as tolerated. HOSPITAL COURSE: The patient came in with abdominal pain and bloating. Had an upper GI and small bowel x- ray and was seen by Dr. Mora. He ruled out any significant GI pathology. She has a history of autoimmune hepatitis, GERD. White count was normal. She had EGD and colonoscopy prior to discharge, which did not find anything of serious significance. GI cleared her for discharge to follow up for the EGD and colonoscopy as an outpatient. As the abdominal pain resolved with fluid rehydration, as she was severely dehydrated when she was admitted, so prerenal and renal failure due to dehydration improved. The patient was discharged home. Follow up as an outpatient. MMODL / IJN: [id number] /
== END 2020-05-30 15:55 | disposition left against medical advice (07) ==
LOC: EC 16:21 → 1SOBS 18:48
PROVIDERS: ADMIT Family Medicine; ATTEND Family Medicine
DX: N13.30 Unspecified hydronephrosis (principal); R10.10 Upper abdominal pain, unspecified; R10.13 Epigastric pain; K75.4 Autoimmune hepatitis; K21.9 Gastro-esophageal reflux disease without esophagitis; Z90.710 Acquired absence of both cervix and uterus; Z90.49 Acquired absence of other specified parts of digestive tract; M79.7 Fibromyalgia; I10 Essential (primary) hypertension; K76.9 Liver disease, unspecified; Z53.29 Procedure and treatment not carried out because of patient's decision for other reasons; G40.909 Epilepsy, unspecified, not intractable, without status epilepticus; M32.9 Systemic lupus erythematosus, unspecified; R73.9 Hyperglycemia, unspecified; E66.3 Overweight; Z68.42 Body mass index [BMI] 45.0-49.9, adult; Z79.52 Long term (current) use of systemic steroids; E03.9 Hypothyroidism, unspecified; Z87.440 Personal history of urinary (tract) infections; Z98.51 Tubal ligation status; Z98.890 Other specified postprocedural states; F41.9 Anxiety disorder, unspecified; F31.9 Bipolar disorder, unspecified; F32.9 Major depressive disorder, single episode, unspecified; F17.290 Nicotine dependence, other tobacco product, uncomplicated; Z82.49 Family history of ischemic heart disease and other diseases of the circulatory system; Z83.3 Family history of diabetes mellitus; Z80.0 Family history of malignant neoplasm of digestive organs; Z79.890 Hormone replacement therapy; Z79.899 Other long term (current) drug therapy; Z88.0 Allergy status to penicillin
CPT/HCPCS: 96361 ×3; 96375 ×2; 96376 ×2; 96374; 99285; 36415; 80053; 82150; 83605; 83690 ×2; 85025; 81003; 83036; 74220; 76700; G0378 ×2; J2270 ×2; J2405 ×2; C9113

== ENCOUNTER 2020-07-15 03:44 | Emergency (ER) | payer OTHER ==
[2020-07-15 03:51] VITALS: RESP 18
[2020-07-15] MEDS ORDERED: SODIUM CHLORIDE 0.9% 1,000 ML IV ONE (04:03)
--- NOTE | 2020-07-15 04:34 | ED ---
Abdominal Pain HPI - General Chief Complaint: Abdominal Pain Stated Complaint: R Flank Pain Time Seen by Provider: 07/15/20 04:00 Source: patient Mode of arrival: ambulatory Limitations: no limitations - History of Present Illness Initial Comments: Juvenal a 44-year-old female who presents the ER today for evaluation of burning epigastric abdominal pain that radiates from the epigastrium through to her back. Pain is associated with nausea and one episode of nonbloody nonbilious emesis. No change in bowel or bladder habits. Patient is status post ch olecystectomy in the distant past. No history of pancreatitis but did recently have her diabetic medications changed cannot recall the name of her new medication she's been taking it for 6 days. - Related Data Home Medications Medication Instructions Recorded Confirmed Famotidine [Pepcid] 40 mg PO HS@219901/11/19 07/09/20 Pantoprazole Sodium [Protonix] 20 mg PO DAILY@0800 01/11/19 07/09/20 Ergocalciferol (Vitamin D2) 50,000 unit PO TU 04/03/19 07/09/20 [Drisdol] clonazePAM [KlonoPIN] 1 mg PO BID@0600,1400 04/03/19 07/09/20 atenoloL [Tenormin] 50 mg PO BID@0800,2200 07/18/19 07/09/20 Levothyroxine Sodium [Synthroid] 150 mcg PO DAILY@0700 05/29/20 07/09/20 Mirtazapine 30 mg PO HS@219905/29/20 07/09/20 Ondansetron HCl [Zofran] 4 mg PO Q6H PRN 05/29/20 07/09/20 Paliperidone [Invega] 9 mg PO HS@219905/29/20 07/09/20 clonazePAM [KlonoPIN] 2 mg PO HS@219905/29/20 07/09/20 Albuterol Sulfate [Proair Hfa] 1 - 2 puff INHALATION Q6HR PRN 07/09/20 07/09/20 Metoclopramide [Reglan] 10 mg PO TID 07/09/20 07/09/20 Repaglinide [Prandin] 2 mg PO DAILY 11/04/20 11/04/20 Allergies Allergy/AdvReac Type Severity Reaction Status Date / Time amoxicillin Allergy Rash/Hives Verified 07/15/20 03:51 lorazepam [From Ativan] Allergy RACING Verified 07/15/20 03:51 HEART acetaminophen [From Tylenol] AdvReac Nausea & Verified 07/15/20 03:51 Vomiting codeine AdvReac Vomiting,brunner Verified 07/15/20 03:51 llucination s hydromorphone [From Dilaudid] AdvReac hallucinati Verified 07/15/20 03:51 ons,vomitin g lamotrigine [From Lamictal] AdvReac Ben Verified 07/15/20 03:51 Zay's Syndrome lisinopril AdvReac Anaphylaxis Verified 07/15/20 03:51 metronidazole [From Flagyl] AdvReac Nausea & Verified 07/15/20 03:51 Vomiting,rash paper tape Allergy Rash/Hives Uncoded 07/15/20 03:51 Review of Systems ROS Statement: Those systems with pertinent positive or pertinent negative responses have been documented in the HPI. ROS Other: All systems not noted in ROS Statement are negative. Past Medical History Past Medical History: Asthma, Diabetes Mellitus, Fibromyalgia, GERD/Reflux, Hypertension, Liver Disease, Pneumonia, Seizure Disorder, Thyroid Disorder Additional Past Medical History / Comment(s): seizure last one 07/02/20, autoimmune hepatitis, hypothyroid, UTI, stomach and bowel issues History of Any Multi-Drug Resistant Organisms: None Reported Past Surgical History: Cholecystectomy, Hysterectomy, Tubal Ligation, Uterine Ablation Additional Past Surgical History / Comment(s): Partial hysterectomy 2011, Nova Sure ablation in 2011 Past Anesthesia/Blood Transfusion Reactions: Motion Sickness, Postoperative Nausea & Vomiting (PONV) Past Psychological History: Anxiety, Bipolar, Depression Smoking Status: Current every day smoker Past Alcohol Use History: None Reported Past Drug Use History: None Reported - Past Family History Father Family Medical History: Hypertension Additional Family Medical History / Comment(s): Father is from "medical malpractice" he from an intracranial bleed at the age of 52yrs Mother Family Medical History: Diabetes Mellitus Brother(s) Family Medical History: No Reported History Sister(s) Family Medical History: Cancer Additional Family Medical History / Comment(s): Sister from gastric cancer at the age of 30yrs. Son(s) Family Medical History: No Reported History Daughter(s) Family Medical History: No Reported History General Exam - General Exam Comments Initial Comments: Physical Exam GENERAL: Patient is well-developed and well-nourished. Patient is nontoxic and well-hydrated and is in no distress HENT: Normocephalic, Atraumatic. EYES: PERRL, EOMI PULMONARY: Unlabored respirations. CARDIOVASCULAR: RRR Warm and well perfused extremities ABDOMEN: Non-distended Tenderness to palpation in epigastrum SKIN: No rashes or bruising : Deferred NEUROLOGIC: Alert and oriented Normal speech Normal gait MUSCULOSKELETAL: Moving all extremities with no apparent injury PSYCHIATRIC: No SI/HI Limitations: no limitations Course Vital Signs 07/15/20 07/15/20 03:47 06:40 Temperature 98.2 F 98.1 F Pulse Rate 83 80 Respiratory 18 18 Rate Blood Pressure 139/79 O2 Sat by Pulse 96 97 Oximetry Medical Decision Making - Medical Decision Making the patient was seen and evaluated history is obtained from patient History and physical exam are concerning for likely drug induced pancreatitis, labs and IV fluids were ordered labs with mild leukocytosis, no elevated lipase, hyperglycemia as noted Results were discussed with the patient reports she is feeling better and is actually very very anxious about being in the ER would like to be discharged home feels that she can manage her discomfort at home. Will follow up with Dr. Ashley outpatient. - Lab Data Result diagrams: 07/15/20 04:14 07/15/20 05:30 Lab Results 07/15/20 07/15/20 07/15/20 Range/Units 04:14 04:14 05:30 WBC 11.8 H (3.8-10.6) k/uL RBC 5.17 (3.80-5.40) m/uL Hgb 14.9 (11.4-16.0) gm/dL Hct 44.4 (34.0-46.0) % MCV 85.9 (80.0-100.0) fL MCH 28.8 (25.0-35.0) pg MCHC 33.6 (31.0-37.0) g/dL RDW 14.6 (11.5-15.5) % Plt Count 379 (150-450) k/uL Neutrophils % 60 % Lymphocytes % 25 % Monocytes % 8 % Eosinophils % 5 % Basophils % 1 % Neutrophils # 7.0 (1.3-7.7) k/uL Lymphocytes # 2.9 (1.0-4.8) k/uL Monocytes # 0.9 (0-1.0) k/uL Eosinophils # 0.6 (0-0.7) k/uL Basophils # 0.2 (0-0.2) k/uL Sodium 135 L (137-145) mmol/L Potassium 4.2 (3.5-5.1) mmol/L Chloride 104 (98-107) mmol/L Carbon Dioxide 26 (22-30) mmol/L Anion Gap 5 mmol/L BUN 9 (7-17) mg/dL Creatinine 0.52 (0.52-1.04) mg/dL Est GFR (CKD-EPI)AfAm >90 (>60 ml/min/1.73 sqM) Est GFR (CKD-EPI)NonAf >90 (>60 ml/min/1.73 sqM) Glucose 284 H (74-99) mg/dL Calcium 9.0 (8.4-10.2) mg/dL Total Bilirubin 0.3 (0.2-1.3) mg/dL AST 37 H (14-36) U/L ALT 27 (4-34) U/L Alkaline Phosphatase 79 (38-126) U/L Total Protein 7.8 (6.3-8.2) g/dL Albumin 3.7 (3.5-5.0) g/dL Lipase 62 (23-300) U/L Urine Color Yellow Urine Appearance Clear (Clear) Urine pH 6.0 (5.0-8.0) Ur Specific [place] 1.031 (1.001-1.035) Urine Protein Trace H (Negative) Urine Glucose (UA) 4+ H (Negative) Urine Ketones Negative (Negative) Urine Blood Negative (Negative) Urine Nitrite Negative (Negative) Urine Bilirubin Negative (Negative) Urine Urobilinogen 2.0 (<2.0) mg/dL Ur Leukocyte Esterase Negative (Negative) Disposition Clinical Impression: Abdominal pain Disposition: HOME SELF-CARE Condition: Stable Instructions (If sedation given, give patient instructions): Abdominal Pain (ED) Is patient prescribed a controlled substance at d/c from ED?: No Referrals: Sandip Ashley MD [Primary Care Provider] - 1-2 days
[2020-07-15 04:37] LABS: Basophils # (A) 0.2 k/uL (0-0.2); Basophils % (A) 1 %; Eosinophils # (A) 0.6 k/uL (0-0.7); Eosinophils % (A) 5 %; HCT 44.4 % (34.0-46.0); HGB 14.9 gm/dL (11.4-16.0); Lymphocytes # (A) 2.9 k/uL (1.0-4.8); Lymphocytes % (A) 25 %; MCH 28.8 pg (25.0-35.0); MCHC 33.6 g/dL (31.0-37.0); MCV 85.9 fL (80.0-100.0); Monocytes # (A) 0.9 k/uL (0-1.0); Monocytes % (A) 8 %; Neutrophils % (A) 60 %; Platelet Count 379 k/uL (150-450); RBC 5.17 m/uL (3.80-5.40); RDW 14.6 % (11.5-15.5); WBC 11.8 k/uL (3.8-10.6)
[2020-07-15 04:38] LABS: Appearance,Urine Clear (Clear); Bilirubin,Urine Negative (Negative); Blood,Urine Negative (Negative); Color,Urine Yellow; Glucose,Urine (UA) 4+ (Negative); Ketones,Urine Negative (Negative); Leukocyte Esterase,Urine Negative (Negative); Nitrite,Urine Negative (Negative); Protein,Urine Trace (Negative); Specific Gravity,Urine 1.031 (1.001-1.035)
[2020-07-15 05:51] LABS: ALT 27 U/L (4-34); AST 37 U/L (14-36); African American GFR (CKD) >90 (>60 ml/min/1.73 sqM); Albumin 3.7 g/dL (3.5-5.0); Alkaline Phosphatase 79 U/L (38-126); Anion Gap 5 mmol/L; Blood Urea Nitrogen 9 mg/dL (7-17); Carbon Dioxide 26 mmol/L (22-30); Chloride 104 mmol/L (98-107); Glucose 284 mg/dL (74-99); Lipase 62 U/L (23-300); Non-African American GFR(CKD) >90 (>60 ml/min/1.73 sqM); Potassium 4.2 mmol/L (3.5-5.1); Sodium 135 mmol/L (137-145); Total Bilirubin 0.3 mg/dL (0.2-1.3); Total Protein 7.8 g/dL (6.3-8.2)
[2020-07-15] MEDS ORDERED: MAG HYDROX/AL HYDROX/SIMETH 30 ML, HYOSCYAMINE ELIXIR 10 ML, LIDOCAINE VISCOUS 2% 10 ML PO STA ×3 (06:29)
[2020-07-15 06:41] VITALS: BP 139/79; PULSE 80; TEMP 98.1
== END 2020-07-15 06:43 | disposition home or self-care (01) ==
LOC: EC 03:44
DX: R10.9 Unspecified abdominal pain (principal); R11.2 Nausea with vomiting, unspecified; D72.829 Elevated white blood cell count, unspecified; F17.200 Nicotine dependence, unspecified, uncomplicated; J45.909 Unspecified asthma, uncomplicated; E11.9 Type 2 diabetes mellitus without complications; F41.9 Anxiety disorder, unspecified; F31.9 Bipolar disorder, unspecified; M79.7 Fibromyalgia; K21.9 Gastro-esophageal reflux disease without esophagitis; I10 Essential (primary) hypertension; G40.909 Epilepsy, unspecified, not intractable, without status epilepticus; E07.9 Disorder of thyroid, unspecified; E03.9 Hypothyroidism, unspecified; K75.4 Autoimmune hepatitis; Z79.899 Other long term (current) drug therapy; Z79.51 Long term (current) use of inhaled steroids; Z79.890 Hormone replacement therapy; Z79.84 Long term (current) use of oral hypoglycemic drugs; Z88.1 Allergy status to other antibiotic agents; Z88.8 Allergy status to other drugs, medicaments and biological substances; Z88.5 Allergy status to narcotic agent; Z88.6 Allergy status to analgesic agent; Z88.0 Allergy status to penicillin; Z87.19 Personal history of other diseases of the digestive system; Z90.49 Acquired absence of other specified parts of digestive tract; Z90.710 Acquired absence of both cervix and uterus; Z98.51 Tubal ligation status
CPT/HCPCS: 36415; 80053; 81003; 83690; 85025; 96360; 99284